=== PATIENT | female | born 1965 | race Caucasian/White ===

== ENCOUNTER 2021-03-22 09:56 | Outpatient (REF) | payer BC, SELFPAY ==
[2021-03-22 11:18] LABS: MANUAL DIFF FLAG NO
[2021-03-22 11:25] LABS: Basophils Absolute Auto 0.1 X10*3/uL (0.0-0.2); Eosinophils Absolute Auto 0.3 X10*3/uL (0.0-0.4); Eosinophils Percent Auto 4.8 % (0-4); Hematocrit 40.7 % (37-47); Hemoglobin 13.1 g/dl (12.0-16.0); Imm Gran Abs Auto 0.01 X10*3/uL (0.00-0.03); Imm Gran Pct Auto 0.2 % (0.0-0.4); Lymphocytes Absolute Auto 1.4 X10*3/uL (1.2-4.9); Lymphocytes Percent Auto 26.2 % (20-40); Mean Corpuscular HGB Conc 32.2 g/dl (31.0-35.0); Mean Corpuscular Hemoglobin 29.5 pg (27.0-33.0); Mean Corpuscular Volume 91.7 fL (80-98); Mean Platelet Volume 9.9 fL (9.4-12.3); Monocytes Absolute Auto 0.7 X10*3/uL (0.1-1.2); Monocytes Percent Auto 12.8 % (2-11); Neutrophils Absolute Auto 2.9 X10*3/uL (2.0-8.3); Platelet Count 305 X10*3/uL (160-400); Red Blood Count 4.44 X10*6/uL (4.20-5.50); Red Cell Distribution Width 12.7 % (11.0-16.0); White Blood Count 5.2 X10*3/uL (4.8-10.8)
[2021-03-22 11:37] LABS: Alanine Aminotransferase 14 U/L (0-31); Albumin Level 4.3 g/dL (3.5-5.0); Alkaline Phosphatase 81 U/L (39-117); Anion Gap 12 (12-20); Aspartate Amino Transferase 18 U/L (5-31); Bilirubin Total 0.5 mg/dL (0.0-1.0); Blood Urea Nitrogen 17 mg/dL (9-16); Calcium 9.4 mg/dL (8.4-10.2); Carbon Dioxide 25 mmol/L (22-29); Chloride 107 mmol/L (96-108); Cholesterol 198 mg/dL; Estimated Glomerular Filt Rate > 60; Glucose Fasting 96 mg/dL (60-99); HDL Cholesterol 57 mg/dL; Iron 94 mcg/dL (30-160); LDL Cholesterol Calculated 128 mg/dl; Percent Iron Saturation 25 % (15-50); Potassium 4.2 mmol/L (3.3-5.1); Sodium 140 mmol/L (135-145); Total Iron Binding Capacity 369 mcg/dL (228-428); Total Protein 6.8 g/dL (6.5-8.0); Triglycerides 68 mg/dL; Unsaturated Iron Binding 275 ug/dL
[2021-03-22 12:00] LABS: TSH reflex Free T4 2.21 uIU/mL (0.32-4.0); Vitamin D 25-OH Total 26.3 ng/mL (>30)
== END 2021-03-22 09:57 | disposition home or self-care (01) ==
LOC: HO.HMGCLDS 09:56
PROVIDERS: PCP Internal Medicine; Visit Provider Internal Medicine
DX: Z00.01 Encounter for general adult medical examination with abnormal findings (principal); Z78.0 Asymptomatic menopausal state; Z86.2 Personal history of diseases of the blood and blood-forming organs and certain disorders involving the immune mechanism
CPT/HCPCS: 36415; 80053; 80061; 82306; 83540; 84443; 85025

== ENCOUNTER → 2021-05-01 08:23 | Outpatient (BNVA) | payer BC, SELFPAY | PROVIDERS: PCP Internal Medicine; Referring Provider Internal Medicine; Visit Provider Nurse Practitioner Family ==

== ENCOUNTER 2021-05-28 09:23 | Outpatient (REF) | payer BC, SELFPAY ==
[2021-05-30 21:32] LABS: HPV mRNA E6/E7 rflx Not Detected (Not Detected)
== END 2021-05-28 09:24 | disposition home or self-care (01) ==
LOC: HO.LAB 09:23
PROVIDERS: PCP Internal Medicine; Visit Provider Obstetrics & Gynecology
DX: Z01.419 Encounter for gynecological examination (general) (routine) without abnormal findings (principal); Z11.51 Encounter for screening for human papillomavirus (HPV); Z91.89 Other specified personal risk factors, not elsewhere classified
CPT/HCPCS: 87624; 88142

== ENCOUNTER 2022-06-24 15:12 | Outpatient (REF) | payer BC, SELFPAY ==
--- NOTE | ~2022-06-24 | MR_ITS ---
EXAMINATION: MR BREAST WITHOUT AND WITH CONTRAST, BILATERAL CLINICAL INFORMATION: High-risk screening. Family history breast cancer. COMPARISON: Outside MRI 03/31/2019 TECHNIQUE: Imaging was performed with a dedicated breast coil. Prior to the administration of contrast, bilateral axial T1 and bilateral axial T2 weighted sequences were obtained. After the uneventful administration of?10 mL of Gadavist, dynamic contrast-enhanced VIBRANT series through the breasts in the axial plane were performed. Subtracted images were performed and reviewed. A delayed sagittal sequence through both breasts was acquired. Additionally, CAD post-processing, including maximum intensity projections, 3-D reconstructions and kinetic analysis, were performed an independent workstation and reviewed by the interpreting radiologist is a portion of this exam. FINDINGS: The patient's fibroglandular tissue demonstrates moderate background enhancement. LEFT BREAST: No suspicious masslike or non-masslike enhancement. No abnormal skin thickening or nipple retraction. No abnormal architectural distortion. Review of the T2 weighted images demonstrates no fibrocystic changes or dilated ducts. Review of kinetic images reveals no additional findings. RIGHT BREAST: No suspicious masslike or non-masslike enhancement. No abnormal skin thickening or nipple retraction. No abnormal architectural distortion. Review of the T2 weighted images demonstrates no fibrocystic changes or dilated ducts. Review of kinetic images reveals no additional findings. There is no suspicious internal mammary chain or axillary adenopathy. Limited views of the chest and abdomen are unremarkable. MR/MR breast BI wo/w con IMPRESSION: No MR specific evidence of malignancy. ASSESSMENT: LEFT BREAST: BI-RADS 1-Negative RIGHT BREAST: BI-RADS 1-Negative RECOMMENDATIONS: Clinical follow-up. Continued annual mammographic surveillance. Further breast MRI as risk factors dictate.
== END 2022-06-24 15:13 | disposition home or self-care (01) ==
LOC: HO.MRI 15:12
PROVIDERS: Visit Provider Obstetrics & Gynecology
DX: Z91.89 Other specified personal risk factors, not elsewhere classified (principal); Z80.3 Family history of malignant neoplasm of breast
CPT/HCPCS: 77049; A9585

== ENCOUNTER 2022-06-25 12:22 | Outpatient (REF) | payer BC, SELFPAY | END 2022-06-25 12:23 | disposition home or self-care (01) | LOC: HO.LAB 12:22 | PROVIDERS: PCP Internal Medicine; Visit Provider Obstetrics & Gynecology | DX: N90.4 Leukoplakia of vulva (principal) | CPT/HCPCS: 56605; 88305; 88312 ==

== ENCOUNTER 2022-12-27 13:11 | Outpatient (REF) | payer BC, SELFPAY ==
--- NOTE | ~2022-12-27 | XR_ITS ---
EXAMINATION: XR ANKLE, LEFT CLINICAL INFORMATION: Pain left ankle and left foot. COMPARISON: None TECHNIQUE: AP, lateral, and mortise views of the left ankle. FINDINGS: There is moderate lateral malleolar soft tissue swelling the ankle mortise and subtalar joints are normal. There is a small calcaneal heel enthesophyte. No visible acute fracture or dislocation seen. XR/XR ankle LT min 3V IMPRESSION: 1. Moderate lateral malleolar soft tissue swelling likely ligamentous injury. No visible acute fracture or dislocation seen. 2. Small calcaneal heel enthesophyte.
== END 2022-12-27 13:12 | disposition home or self-care (01) ==
LOC: HO.HMGCX 13:11
PROVIDERS: Visit Provider Internal Medicine
DX: M25.572 Pain in left ankle and joints of left foot (principal)
CPT/HCPCS: 73610

== ENCOUNTER 2023-05-23 12:26 | Outpatient (AMB) | payer BC, SELFPAY ==
--- NOTE | 2023-05-23 12:32 | A.OFFPC_ITS ---
Vital Signs 05/23/23 12:35 Height 5 ft 3 in Weight 192 lb 8 oz BMI 34.1 BP 124/78 Blood Pressure Location Lt brachial Position Sitting Pulse 69 Pulse Source Pulse Oximeter Pulse Oximetry (%) 99 Oxygen Delivery Method Room Air Intake Visit Reasons: Annual PE Intake Note: Pt is here for her annual physical exam. Allergies adhesive tape [ADHESIVE TAPE] Allergy (Unknown, Verified 10/11/23 23:39) RASH neomycin Allergy (Unknown, Verified 10/11/23 23:39) rash thimerosal Allergy (Unknown, Verified 10/11/23 23:39) itching Iodinated Contrast Media [Contrast Dye] Adverse Reaction (Verified 10/11/23 23:39) Itching Medication List - Last Reconciled 10/11/23 by Macie Valdovinos MD cyclobenzaprine 10 mg PO BEDTIME PRN Tobacco use date assessed: 05/23/23 Dental Screening Dental Screen Date: 05/23/23 Did you have a dental visit in the last 12 months?: Yes Did you have a dental problem in the last 6 months where you did not have access to dental care?: No Was dental information given to patient?: No HPI Annual PE HPI Details 58-year-old lady, presents today for her physical exam. She has COPD, and history of obstructive sleep apnea, prescribed CPAP, but never used it, is currently complaining of excessive daytime sleepiness and loud snoring, would like to be referred for re-evaluation . She is currently being followed by OBGYNDr. Figueroa for her routine Pap and pelvic exam, and has been diagnosed with vulvar leukoplakia. She has strong family history for early breast cancer, underwent genetic testing which came back negative. She is up-to-date with her screening mammogram, done at [facility], with negative results. She had a Cologuard testing done in 2020 which came back negative, due for repeat colon cancer screening in 2023. She has history of depression, previously on fluoxetine, but stopped taking the medication approximately year ago as she feels that she does not needed anymore. She however has been having easy distractibility, unable to keep her concentration focus, and would like to be evaluated for possible ADD. [facility] Medical History (Updated 05/23/23 @ 13:33 by Macie Valdovinos MD) Annual visit for general adult medical examination with abnormal findings Vitamin D deficiency Excessive daytime sleepiness Loud snoring Sleep disturbance Increased risk of breast cancer Broken ribs Obesity History of anemia Depression COPD (chronic obstructive pulmonary disease) BERT (obstructive sleep apnea) Surgical History History of hand surgery Hx of section History of endometrial ablation No pertinent past surgical history Family History Father Lung cancer Mother Lung cancer Sister Melanoma Breast cancer, Onset Age: 52 Maternal Aunt Breast cancer Brain cancer Paternal Grandfather Lung cancer Breast cancer Maternal Uncle Lung cancer Maternal Aunt Breast cancer Maternal Aunt No problems noted. Maternal Uncle Lung cancer Paternal Uncle No problems noted. Paternal Uncle Breast cancer Lung cancer Paternal Grandfather No problems noted. Paternal Grandmother Stomach cancer Paternal Aunt Lymphoma Social History Household Members: Spouse and Children Housing: House Are you a primary live in caregiver to a significant other at home: No Do you presently have visiting nurse or other home services: No Alcohol intake: current Patient Tobacco Use Status: Never used Tobacco e-Cigarette/Vaping Use: Never Used service: No Current occupational status: unemployed Cognitive needs: No Hearing needs: No Vision needs: Yes Female Reproductive History Menstrual Age of Menarche: 9 Questionnaire Thrive Questionnaire Date Thrive assessed: 12/27/22 AUDIT C Alcohol Use Questionnaire (AUDIT-C) 1. How often do you have a drink containing alcohol?: Never 3. How often do you have six or more drinks on one occasion?: Never Total Score: 0 GIN-7 AMB Questionnaire GIN-7 Date GIN - 7 assessed: 12/27/22 Source: Developed by Drs. Hayden Cummings, Michelle Charlton, Alban Danielson and colleagues, with an educational sal from [employer]. Review of Systems Const Denies body aches, Denies fatigue, Denies fever(s), Denies headache(s) and Denies weakness Eyes Denies change in vision ENT Denies dizziness, Denies headache(s), Denies nasal congestion, Denies nasal discharge and Denies sore throat Card Denies chest pain, Denies lightheadedness, Denies palpitations and Denies dyspnea Resp Denies chest congestion, Denies cough, Denies dyspnea and Denies wheezing GI Denies abdominal pain, Denies change in bowel habits and Denies heartburn Denies urinary frequency, Denies dysuria and Denies urinary urgency Musc Denies arthralgias, Reports muscle cramps (Lower back) and Denies stiffness Skin/Breast Details: sees [place] [facility] yearly Denies lesions and Denies rash Neuro Denies dizziness, Denies headache(s) and Denies weakness Psych Reports no additional complaints and Reports as per HPI Endo Denies fatigue, Denies polydipsia, Denies polyuria and Denies palpitations Steffen/Lymph Denies easy bruising Aller/Immun Denies seasonal rhinorrhea and Denies wheezing Physical exam (Primary Care) Vital Signs: Last Vital Signs Pulse 69 05/23/23 12:35 BP 124/78 05/23/23 12:35 Pulse Ox 99 05/23/23 12:35 Oxygen Delivery Method Room Air 05/23/23 12:35 BMI result Body Mass Index 34.1 Tobacco/Smoking Status: Tobacco use Status Tobacco use date assessed 05/23/23 05/23/23 12:38 Patient Tobacco Use Status Never used Tobacco 05/23/23 12:35 e-Cigarette/Vaping Use Never Used 05/23/23 12:38 Thrive Assessment: Date of Thrive Assessment Date Thrive assessed 12/27/22 05/23/23 12:35 Const General: cooperative, no acute distress and alert Orientation/consciousness: patient oriented x3 Skin General skin exam: no rashes or lesions noted Neuro General: patient oriented x3 Assessment and Plan Assessment & Plan (1) Annual visit for general adult medical examination with abnormal findings: Code(s): Z00.01 - Encounter for general adult medical examination with abnormal findings Plan: Will check appropriate labs. Recommended dental visit every 6 months and regular eye exams, at least every 2 years. Take adequate calcium in diet and vitamin-D 3 at 2000 IU per cap once a day, in addition to weight-bearing exercises to help maintain good muscle tone and weight control. Instructed to do self-breast exam, and continue yearly mammogram, and cervical cancer screening, up-to-date with her colon cancer screening had a Cologuard testing done in 2020 reminded to get her yearly flu vaccine and pneumonia vaccination. (2) BERT (obstructive sleep apnea): Comment: previously on CPAP Code(s): G47.33 - Obstructive sleep apnea (adult) (pediatric) Plan: Referred for re-evaluation to sleep medicine (3) Excessive daytime sleepiness: Code(s): G47.19 - Other hypersomnia Plan: Referral to sleep medicine for further evaluation (4) Loud snoring: Code(s): R06.83 - Snoring Plan: Referred to sleep medicine for further evaluation (5) Sleep disturbance: Code(s): G47.9 - Sleep disorder, unspecified Plan: Referred to sleep medicine for re-evaluation, has history of sleep apnea, but never used prescribed CPAP (6) Vulvar leukoplakia: Code(s): N90.4 - Leukoplakia of vulva Plan: Followed by OBGYN (7) Obesity: Code(s): E66.9 - Obesity, unspecified Plan: Discussed need to increase activity and weight reduction. Recommended focusing on improving health instead of dieting. Mediterranean diet is a healthy diet that helps, limit food high in fat, sugar, and calories. Eat slowly, pay attention to portion sizes, plan your meals ahead of time, start regular physical activity, at least 150 minutes of moderate intensity exercise, or 90 minutes per week of vigorous exercise. Keeping a food diary, tracking what you eat and your physical activity can help assess what improvements you can make. There are many health problems associated with being overweight/obese, so it is important to improve your diet and exercise. There are medications and surgical options available, but Lifestyle changes are the 1st step. (8) COPD (chronic obstructive pulmonary disease): Code(s): J44.9 - Chronic obstructive pulmonary disease, unspecified Plan: Currently asymptomatic, not using any inhalers,. Up-to-date with her COVID booster, reminded to get her flu shot yearly, up-to-date with her shingles vaccine and reminded to get her pneumonia vaccination. (9) Difficulty concentrating: Code(s): R41.840 - Attention and concentration deficit Plan: Referred to our [facility] for assistance with referral to psychologist for evaluation of attention deficit disorder (10) Lumbago: Code(s): M54.50 - Low back pain, unspecified Plan: Advised to do stretching exercises, prescribed cyclobenzaprine 10 mg per tablet to take 1 tablet at bedtime as needed for painful muscle spasm Orders: Orders Vitamin D 25-OH Total 05/23/23 E55.9 - Vitamin D deficiency, unspecified, Z00.01 - Encounter for general adult medical examination with abnormal findings Lipid Panel 05/23/23 G47.9 - Sleep disorder, unspecified, R06.83 - Snoring, G47.19 - Other hypersomnia Glucose Fasting 05/23/23 G47.9 - Sleep disorder, unspecified, R06.83 - Snoring, G47.19 - Other hypersomnia Referrals Sleep Medicine Referral G47.33 - Obstructive sleep apnea (adult) (pediatric), G47.19 - Other hypersomnia, R06.83 - Snoring, G47.9 - Sleep disorder, unspecified Medications: New cyclobenzaprine 10 mg PO BEDTIME PRN 20 tabs 0RF muscle spasm Coding Level of Care Code Est Pt Prev Care 40-64y(35922) Diagnoses Annual visit for general adult medical examination with abnormal findings Z00.01 BERT (obstructive sleep apnea) G47.33 Excessive daytime sleepiness G47.19 Loud snoring R06.83 Sleep disturbance G47.9 Vulvar leukoplakia N90.4 Obesity E66.9 COPD (chronic obstructive pulmonary disease) J44.9 Difficulty concentrating R41.840 Lumbago M54.50
[2023-05-23 12:35] VITALS: BP 124/78; PULSE 69; O2SAT 99; BMI 34.1
== END 2023-05-23 14:01 | disposition home or self-care (01) ==
PROVIDERS: Visit Provider Internal Medicine
DX: Z00.01 Encounter for general adult medical examination with abnormal findings (principal); M54.50 Low back pain, unspecified; G47.33 Obstructive sleep apnea (adult) (pediatric); J44.9 Chronic obstructive pulmonary disease, unspecified; G47.19 Other hypersomnia; R06.83 Snoring; G47.9 Sleep disorder, unspecified; N90.4 Leukoplakia of vulva; E66.9 Obesity, unspecified; R41.840 Attention and concentration deficit
CPT/HCPCS: 99213; 99396

== ENCOUNTER 2023-11-03 10:32 | Outpatient (AMB) | payer BC, SELFPAY ==
--- NOTE | 2023-11-03 10:40 | MHC.PC.OV ---
Vital Signs 11/03/23 10:42 Height 5 ft 3 in Weight 189 lb BMI 33.5 BP 132/76 Blood Pressure Location Rt brachial Position Sitting Pulse 86 Pulse Source Pulse Oximeter Pulse Oximetry (%) 97 Oxygen Delivery Method Room Air Intake Visit Reasons: Followup depression Intake Note: Pt is here to follow Depression Allergies adhesive tape [ADHESIVE TAPE] Allergy (Unknown, Verified 11/03/23 10:50) RASH neomycin Allergy (Unknown, Verified 11/03/23 10:50) rash thimerosal Allergy (Unknown, Verified 11/03/23 10:50) itching Iodinated Contrast Media [Contrast Dye] Adverse Reaction (Verified 11/03/23 10:50) Itching Medication List - Last Reconciled 11/03/23 by Macie Valdovinos MD No Known Home Meds Tobacco use date assessed: 11/03/23 Dental Screening Dental Screen Date: 11/03/23 Did you have a dental visit in the last 12 months?: Yes Did you have a dental problem in the last 6 months where you did not have access to dental care?: No Was dental information given to patient?: Patient has dentist HPI Followup depression HPI Details 48-year-old lady with longstanding history of depression, previously on fluoxetine 30 mg daily, but stopped taking it approximately a year ago as she felt that she no longer needed that time. However patient is here stating that she has been under lot of stress lately, started seeing her therapist again, and would like to be prescribed fluoxetine, but prefers to start at 20 mg instead of 30 mg tablet daily. [facility] Medical History (Updated 11/04/23 @ 02:04 by Macie Valdovinos MD) Mixed anxiety and depressive disorder Annual visit for general adult medical examination with abnormal findings Vitamin D deficiency Increased risk of breast cancer Obesity History of anemia Depression COPD (chronic obstructive pulmonary disease) BERT (obstructive sleep apnea) Surgical History History of hand surgery Hx of section History of endometrial ablation No pertinent past surgical history Family History Father Lung cancer Mother Lung cancer Sister Melanoma Breast cancer, Onset Age: 52 Maternal Aunt Breast cancer Brain cancer Paternal Grandfather Lung cancer Breast cancer Maternal Uncle Lung cancer Maternal Aunt Breast cancer Maternal Aunt No problems noted. Maternal Uncle Lung cancer Paternal Uncle No problems noted. Paternal Uncle Breast cancer Lung cancer Paternal Grandfather No problems noted. Paternal Grandmother Stomach cancer Paternal Aunt Lymphoma Social History Household Members: Spouse and Children Housing: House Are you a primary career center advisor to a significant other at home: No Do you presently have visiting nurse or other home services: No Alcohol intake: current Patient Tobacco Use Status: Never used Tobacco e-Cigarette/Vaping Use: Never Used Second Hand Smoke Exposure: No service: No Current occupational status: unemployed Cognitive needs: No Hearing needs: No Vision needs: Yes Female Reproductive History Menstrual Age of Menarche: 9 Questionnaire PHQ-9 Over the last 2 weeks, how often have you been bothered by any of the following problems? 1. Little interest or pleasure in doing things: more than half the days 2. Feeling down, depressed, or hopeless: nearly every day 3. Trouble falling or staying asleep, or sleeping too much: nearly every day 4. Feeling tired or having little energy: nearly every day 5. Poor appetite or overeating: more than half the days 6. Feeling bad about yourself - or that you are a failure or have let yourself or your family down: more than half the days 7. Trouble concentrating on things, such as reading the newspaper or watching television: more than half the days 8. Moving or speaking so slowly that other people could have noticed. Or the opposite - being so fidgety or restless that you have been moving around a lot more than usual: several days 9. Thoughts that you would be better off or of hurting yourself in some way: not at all Total score: 18 Depression Screening Interpretation: Positive Depression Screening Follow-up: Existing condition, In treatment, Community Mental Health Worker F/U (Referred to Antonia clark with scheduling appointment with psychiatry, currently sees own therapist) and Follow-up Visit Requested Depression Screening Done: Yes 24119 - PHQ-9 Billing: Yes Source: Developed by Drs. Hayden Cummings, Michelle Charlton, Alban Danielson and colleagues, with an educational sal from [employer]. Thrive Questionnaire Date Thrive assessed: 11/03/23 I am a: Patient What is your living situation today?: I have a steady place to live Within the past 12 months, did the food you bought not last and you didn't have the money to get more?: Never true Within the past 12 months, did you worry whether your food would run out before you got money to buy more?: Sometimes True Do you have trouble paying for medicines?: No Do you have trouble getting transportation to medical appointments?: No Do you have trouble paying your heating and electricity bill?: No Do you have trouble taking care of your child, family member or friend?: No Do you have trouble with day-to-day activities such as bathing, preparing meals, shopping, managing finances, etc.?: Yes Are you currently unemployed and looking for a job?: Yes Are you interested in more education?: No AUDIT C Alcohol Use Questionnaire (AUDIT-C) 1. How often do you have a drink containing alcohol?: Monthly or less 2. How many drinks containing alcohol do you have on a typical day when you are drinking?: 1 or 2 3. How often do you have six or more drinks on one occasion?: Never Total Score: 1 GIN-7 AMB Questionnaire GIN-7 Date GIN - 7 assessed: 11/03/23 Feeling nervous, anxious, or on edge: 3 = Nearly every day Not being able to stop or control worryin = Nearly every day Worrying too much about different things: 3 = Nearly every day Trouble relaxin = More than half the days Being so restless that it is hard to sit still: 2 = More than half the days Becoming easily annoyed or irritable: 2 = More than half the days Feeling afraid as if something awful might happen: 2 = More than half the days Total GIN-7 score (0-4 normal; 5-9 mild; 10-14 moderate; 15-21 severe): 17 Source: Developed by Drs. Hayden Cummings, Michelle Charlton, Alban Danielson and colleagues, with an educational sal from [employer]. GIN-7 Assessment Billing GIN-7 Assessment Tool: GIN-7 Assessment 60987 Review of Systems Const All systems reviewed & are unremarkable except as noted in HPI and below Physical exam (Primary Care) Vital Signs: Last Vital Signs Pulse 86 11/03/23 10:42 BP 132/76 11/03/23 10:42 Pulse Ox 97 11/03/23 10:42 Oxygen Delivery Method Room Air 11/03/23 10:42 BMI result Body Mass Index 33.5 Tobacco/Smoking Status: Tobacco use Status Tobacco use date assessed 11/03/23 11/03/23 10:50 Patient Tobacco Use Status Never used Tobacco 11/03/23 10:43 e-Cigarette/Vaping Use Never Used 11/03/23 10:43 PHQ-9: PHQ-9 Score PHQ-9: Total score 18 11/03/23 11:10 Depression Screening Interpretation: Positive Depression Screening Follow-up: Existing condition, In treatment, Community Mental Health Worker F/U (Referred to Antonia clark with scheduling appointment with psychiatry, currently sees own therapist) and Follow-up Visit Requested Thrive Assessment: Date of Thrive Assessment Date Thrive assessed 11/03/23 11/03/23 11:10 Const Other: Alert oriented x3, anxious looking, but cooperative with exam Nutritional Appearance: obese Orientation/consciousness: patient oriented x3 Eyes General: appearance normal, both eyes and all related structures Neck Neck: Yes full ROM and Yes supple Cardio Other: S1-S2 present regular rate and rhythm Neuro General: patient oriented x3 Psych Appearance: grossly normal and well kempt Mental Status: mental status grossly normal Speech and movement: Psychomotor agitation in speech present and Restless speech present Affect: Sad affect present and Anxious affect present Attitude: cooperative Thought process: Normal thought process present Thought content: suicidality, no homicidality and no hallucinations Assessment and Plan Assessment & Plan (1) Mixed anxiety and depressive disorder: Code(s): F41.8 - Other specified anxiety disorders Plan: Will start back again on fluoxetine at a dose of 20 mg per tablet to take once a day, patient wants to continue with seeing her therapist, referred to Antonia SAENZ [facility], for assistance in getting in to be seen for psychiatric evaluation and management. Advised to follow-up. Four weeks if not yet seen by psych Medications: New fluoxetine 20 mg PO DAILY 30 caps 0RF Coding Level of Care Code Est Pt Level 3 (44625) Diagnoses Mixed anxiety and depressive disorder F41.8 Additional Codes GIN-7 Assessment Billing - GIN-7 Assessment Tool: GIN-7 Assessment [id number] ([id number])
[2023-11-03 10:42] VITALS: BP 132/76; PULSE 86; O2SAT 97; BMI 33.5
== END 2023-11-03 11:23 | disposition home or self-care (01) ==
LOC: HO.HMGC 10:32
PROVIDERS: PCP Internal Medicine; Visit Provider Internal Medicine
DX: F41.8 Other specified anxiety disorders (principal)
CPT/HCPCS: 96127; 99213

== ENCOUNTER 2023-11-19 08:19 | Outpatient (AMB) | payer BC, SELFPAY ==
[2023-11-19 08:35] VITALS: BP 170/100; PULSE 73; TEMP 36.6; O2SAT 98; BMI 33.5
--- NOTE | 2023-11-19 08:35 | MHC.OFFWIV ---
Intake Vital Signs 11/19/23 08:35 11/19/23 09:06 Height 5 ft 3 in Weight 189 lb BMI 33.5 BP 170/100 H 164/98 H Blood Pressure Location Lt brachial Rt brachial Position Sitting Sitting Pulse 73 Pulse Source Pulse Oximeter Temp 97.8 F Temp Source Oral Pulse Oximetry (%) 98 Oxygen Delivery Method Room Air Intake Visit Reasons: EP bronchitis 2 wks [id number] Intake Note: pt is here for c.o ear and eye pain and possible bronchitis, pt states shes had these symptoms for 2 weeks Patient Tobacco Use Status: Never used Tobacco Allergies adhesive tape [ADHESIVE TAPE] Allergy (Unknown, Verified 11/19/23 09:04) RASH neomycin Allergy (Unknown, Verified 11/19/23 09:04) rash thimerosal Allergy (Unknown, Verified 11/19/23 09:04) itching Iodinated Contrast Media [Contrast Dye] Adverse Reaction (Verified 11/19/23 09:04) Itching Medication List - Last Reconciled 11/19/23 by DANGELO Loaiza fluoxetine 20 mg PO DAILY Do you need a note to return to daycare/school/sports/work: Yes HPI HPI Comments History of Present Illness Details Here today w/ a cough for 2 weeks assoc w/ ear pain, eye pain. Thick white sputum from cough. + sore throat + sick contacts Using cough gtts & OTC meds to help w/ sx. Elevated BP on exam today. Reports this is unusual for her. Denies cardiac and neuro complaints. COUNTS INCLUDE 234 BEDS AT [facility] Medical History (Updated 11/19/23 @ 09:22 by DANGELO Loaiza) Mixed anxiety and depressive disorder Annual visit for general adult medical examination with abnormal findings Vitamin D deficiency Increased risk of breast cancer Obesity History of anemia Depression COPD (chronic obstructive pulmonary disease) BERT (obstructive sleep apnea) Surgical History History of hand surgery Hx of section History of endometrial ablation No pertinent past surgical history Family History Father Lung cancer Mother Lung cancer Sister Melanoma Breast cancer, Onset Age: 52 Maternal Aunt Breast cancer Brain cancer Paternal Grandfather Lung cancer Breast cancer Maternal Uncle Lung cancer Maternal Aunt Breast cancer Maternal Aunt No problems noted. Maternal Uncle Lung cancer Paternal Uncle No problems noted. Paternal Uncle Breast cancer Lung cancer Paternal Grandfather No problems noted. Paternal Grandmother Stomach cancer Paternal Aunt Lymphoma Social History Household Members: Spouse and Children Housing: House Are you a primary critical care specialist to a significant other at home: No Do you presently have visiting nurse or other home services: No Alcohol intake: current Patient Tobacco Use Status: Never used Tobacco e-Cigarette/Vaping Use: Never Used Second Hand Smoke Exposure: No service: No Current occupational status: unemployed Cognitive needs: No Hearing needs: No Vision needs: Yes Female Reproductive History Menstrual Age of Menarche: 9 Review of Systems Const All systems reviewed & are unremarkable except as noted in HPI and below Physical Exam Vital Signs: Last Vital Signs Temp 97.8 F 11/19/23 08:35 Pulse 73 11/19/23 08:35 BP 164/98 H 11/19/23 09:06 Pulse Ox 98 11/19/23 08:35 Oxygen Delivery Method Room Air 11/19/23 08:35 BMI result Body Mass Index 33.5 Const Other: awake alert mildly ill appearing PERRLA TM intact, mild erythema bilat purulent nasal drainage mild erythema of pharynx, pnd ins/exp wheezes throughout, dry cough RRR Assessment & Plan Assessment & Plan (1) Flu-like symptoms: Code(s): R68.89 - Other general symptoms and signs Plan: . (2) Wheezing on auscultation: Code(s): R06.2 - Wheezing Plan: . (3) Elevated blood pressure reading: Code(s): R03.0 - Elevated blood-pressure reading, without diagnosis of hypertension Plan use otc medicactions safe for high blood pressure monitor BP QD and f/u in 1 week to review results edu on reasons to seek ED level care in regards to bp will be called if viral swab or cxr + take AB as directed Total time spent caring for the patient today was 35 minutes. This includes time spent before the visit reviewing the chart, time spent during the visit, and time spent after the visit on documentation Orders: Orders XR chest 2V Today R06.2 - Wheezing, R68.89 - Other general symptoms and signs SARS-CoV2/FLU/RSV Today R06.2 - Wheezing, R68.89 - Other general symptoms and signs Medications: New amoxicillin-pot clavulanate 875-125 mg 1 tab PO BID 7 days 14 tabs 0RF benzonatate 100 mg PO TID 10 days PRN 30 caps 1RF cough Coding Level of Care Code Est Pt Level 4 (34918) Diagnoses Flu-like symptoms R68.89 Wheezing on auscultation R06.2 Elevated blood pressure reading R03.0
[2023-11-19 09:06] VITALS: BP 164/98
== END 2023-11-19 09:36 | disposition home or self-care (01) ==
PROVIDERS: PCP Internal Medicine; Visit Provider Nurse Practitioner Family
DX: R68.89 Other general symptoms and signs (principal); R06.2 Wheezing; R03.0 Elevated blood-pressure reading, without diagnosis of hypertension
CPT/HCPCS: 99214

== ENCOUNTER 2023-11-19 09:20 | Outpatient (REF) | payer BC, SELFPAY ==
--- NOTE | ~2023-11-19 | XR_ITS ---
EXAMINATION: XR CHEST CLINICAL INFORMATION: Wheezing. Difficulty breathing. COMPARISON: None available. TECHNIQUE: 2 views of the chest were obtained. FINDINGS: Lungs fully expanded and clear. No pleural effusion. No pneumothorax. Heart and pulmonary vessels normal. XR/XR chest 2V IMPRESSION: No active disease.
[2023-11-19 12:28] LABS: Influenza A PCR NEGATIVE (Negative); Influenza B PCR NEGATIVE (Negative); Resp Syncy Virus RNA Qual PCR NEGATIVE (Negative); SARS COV2 PCR INHOUSE NEGATIVE (Negative)
== END 2023-11-19 09:21 | disposition home or self-care (01) ==
LOC: HO.HMGCX 09:20
PROVIDERS: PCP Internal Medicine; Visit Provider Nurse Practitioner Family
DX: Z11.52 Encounter for screening for COVID-19 (principal); R06.2 Wheezing; R68.89 Other general symptoms and signs
CPT/HCPCS: 0241U; 71046

== ENCOUNTER 2023-12-05 11:18 | Outpatient (AMB) | payer BC, SELFPAY ==
[2023-12-05 11:23] VITALS: BP 142/82; PULSE 67; O2SAT 96; BMI 32.4
--- NOTE | 2023-12-05 11:23 | A.OFFPC_ITS ---
Vital Signs 12/05/23 11:23 Height 5 ft 3 in Weight 183 lb BMI 32.4 BP 142/82 H Blood Pressure Location Rt brachial Position Sitting Pulse 67 Pulse Source Pulse Oximeter Pulse Oximetry (%) 96 Oxygen Delivery Method Room Air Intake Visit Reasons: F/U depression Intake Note: Pt is here today to f/u depression Allergies adhesive tape [ADHESIVE TAPE] Allergy (Unknown, Verified 12/05/23 11:45) RASH neomycin Allergy (Unknown, Verified 12/05/23 11:45) rash thimerosal Allergy (Unknown, Verified 12/05/23 11:45) itching Iodinated Contrast Media [Contrast Dye] Adverse Reaction (Verified 12/05/23 11:45) Itching Medication List - Last Reconciled 12/05/23 by Macie Valdovinos MD fluoxetine 20 mg PO DAILY Tobacco use date assessed: 12/05/23 Dental Screening Dental Screen Date: 12/05/23 Did you have a dental visit in the last 12 months?: Yes Did you have a dental problem in the last 6 months where you did not have access to dental care?: No Was dental information given to patient?: Patient has dentist HPI F/U depression HPI Details 58-year-old lady with mixed anxiety depr ession currently on fluoxetine 20 mg once a day, here today for her follow-up. She has been seeing her therapist, and has an appointment to see [facility] psychiatrist on 12/16/2023.. Feels better on fluoxetine 20 mg, but still having episodes of mood swings and anxiety attacks, would like to see if she can increase dose to 30 mg daily. Blood pressure today is elevated, she has also been checking it at home and it has been running from between 130/80 to 150/70. Denies any accompanying headache, no shortness of breath, no chest pain or lightheadedness reported. She has changed her diet, now follows a Mediterranean diet but has not been exercising regularly. [facility] Medical History (Updated 12/05/23 @ 11:55 by Macie Valdovinos MD) Essential hypertension Mixed anxiety and depressive disorder Annual visit for general adult medical examination with abnormal findings Vitamin D deficiency Increased risk of breast cancer Obesity History of anemia Depression COPD (chronic obstructive pulmonary disease) BERT (obstructive sleep apnea) Surgical History History of hand surgery Hx of section History of endometrial ablation No pertinent past surgical history Family History Father Lung cancer Mother Lung cancer Sister Melanoma Breast cancer, Onset Age: 52 Maternal Aunt Breast cancer Brain cancer Paternal Grandfather Lung cancer Breast cancer Maternal Uncle Lung cancer Maternal Aunt Breast cancer Maternal Uncle Lung cancer Paternal Uncle Breast cancer Lung cancer Paternal Grandmother Stomach cancer Paternal Aunt Lymphoma Social History Household Members: Spouse and Children Housing: House Are you a primary health care attorney to a significant other at home: No Do you presently have visiting nurse or other home services: No Alcohol intake: current Patient Tobacco Use Status: Never used Tobacco e-Cigarette/Vaping Use: Never Used Second Hand Smoke Exposure: No service: No Current occupational status: unemployed Cognitive needs: No Hearing needs: No Vision needs: Yes Female Reproductive History Menstrual Age of Menarche: 9 Questionnaire PHQ-9 Over the last 2 weeks, how often have you been bothered by any of the following problems? 1. Little interest or pleasure in doing things: several days 2. Feeling down, depressed, or hopeless: several days 3. Trouble falling or staying asleep, or sleeping too much: not at all 4. Feeling tired or having little energy: nearly every day 5. Poor appetite or overeating: more than half the days 6. Feeling bad about yourself - or that you are a failure or have let yourself or your family down: several days 7. Trouble concentrating on things, such as reading the newspaper or watching television: several days 8. Moving or speaking so slowly that other people could have noticed. Or the opposite - being so fidgety or restless that you have been moving around a lot more than usual: several days 9. Thoughts that you would be better off or of hurting yourself in some way: not at all Total score: 10 Depression Screening Interpretation: Positive Depression Screening Follow-up: Existing condition, In treatment, Change in Medication and Community Mental Health Worker F/U (Has appointment with [facility] in counseling on 12/16/2023 to see Psychiatry) Depression Screening Done: Yes Source: Developed by Drs. Hyaden Cummings, Michelle Charlton, Alban Danielson and colleagues, with an educational sal from [employer]. Thrive Questionnaire Date Thrive assessed: 11/03/23 GIN-7 AMB Questionnaire GIN-7 Date GIN - 7 assessed: 12/05/23 Feeling nervous, anxious, or on edge: 1 = Several days Not being able to stop or control worryin = Several days Worrying too much about different things: 1 = Several days Trouble relaxin = Several days Being so restless that it is hard to sit still: 0 = Not at all Becoming easily annoyed or irritable: 0 = Not at all Feeling afraid as if something awful might happen: 0 = Not at all Total GIN-7 score (0-4 normal; 5-9 mild; 10-14 moderate; 15-21 severe): 4 Source: Developed by Drs. Hayden Cummings, Michelle Charlton, Alban Danielson and colleagues, with an educational sal from [employer]. Review of Systems Const Denies fever(s), Denies headache(s) and Denies weakness ENT Denies dizziness, Denies headache(s), Denies nasal congestion and Denies nasal discharge Card Denies chest pain, Denies lightheadedness, Denies palpitations and Denies dyspnea Resp Denies chest congestion, Denies cough, Denies dyspnea and Denies wheezing GI Denies abdominal pain and Denies change in bowel habits Denies urinary frequency and Denies dysuria Musc Denies arthralgias and Denies stiffness Skin/Breast Details: sees [facility] yearly Denies lesions and Denies rash Neuro Denies dizziness, Denies headache(s) and Denies weakness Endo Denies polydipsia, Denies polyuria and Denies palpitations Steffen/Lymph Denies easy bruising Aller/Immun Denies seasonal rhinorrhea and Denies wheezing Physical exam (Primary Care) Vital Signs: Last Vital Signs Pulse 67 12/05/23 11:23 BP 142/82 H 12/05/23 11:23 Pulse Ox 96 12/05/23 11:23 Oxygen Delivery Method Room Air 12/05/23 11:23 BMI result Body Mass Index 32.4 Tobacco/Smoking Status: Tobacco use Status Tobacco use date assessed 12/05/23 12/05/23 11:38 Patient Tobacco Use Status Never used Tobacco 12/05/23 11:25 e-Cigarette/Vaping Use Never Used 12/05/23 11:25 PHQ-9: PHQ-9 Score PHQ-9: Total score 10 12/05/23 11:40 Depression Screening Interpretation: Positive Depression Screening Follow-up: Existing condition, In treatment, Change in Medication and Community Mental Health Worker F/U (Has appointment with [facility] in counseling on 12/16/2023 to see Psychiatry) Thrive Assessment: Date of Thrive Assessment Date Thrive assessed 11/03/23 12/05/23 11:25 Const Other: Alert oriented x3, anxious looking, but cooperative with exam Nutritional Appearance: obese Orientation/consciousness: patient oriented x3 Eyes General: appearance normal, both eyes and all related structures Neck Neck: Yes full ROM and Yes supple Resp Auscultation: clear to auscultation bilaterally Cardio Other: S1-S2 present regular rate and rhythm Neuro General: patient oriented x3 Extrem General: Yes full ROM, Yes no joint enlargement, Yes no clubbing, cyanosis or edema, Yes no calf tenderness and Yes normal gait Psych Appearance: grossly normal and well kempt Mental Status: mental status grossly normal Speech and movement: Psychomotor agitation in speech present and Restless speech present Affect: Anxious affect present Attitude: cooperative Thought process: Normal thought process present Thought content: suicidality, no homicidality and no hallucinations Assessment and Plan Assessment & Plan (1) Mixed anxiety and depressive disorder: Code(s): F41.8 - Other specified anxiety disorders Plan: Increased fluoxetine to 30 mg daily, has an appointment already to see a Psychiatry in [facility] in counseling on 12/16/2023, and still sees her therapist on a regular basis. (2) Essential hypertension: Code(s): I10 - Essential (primary) hypertension Plan: Started on lisinopril 5 mg per tablet to take 1 tablet once a day in the morning, reinforced importance of following a low-salt diet, currently now following a Mediterranean diet, encouraged to exercise regularly at least 30 minutes daily, see her back for follow-up in 1 month after fasting labs done (3) Vitamin D deficiency: Code(s): E55.9 - Vitamin D deficiency, unspecified Plan: Start taking [id number] vitamin D3 2000 units daily, will check with vitamin-D level in 1 month (4) History of anemia: Code(s): Z86.2 - Personal history of diseases of the blood and blood-forming organs and certain disorders involving the immune mechanism Plan: Ordered CBC ordered Orders: Orders Basic Metabolic Panel Fasting Today E55.9 - Vitamin D deficiency, unspecified, I10 - Essential (primary) hypertension, Z86.2 - Personal history of diseases of the blood and blood-forming organs and certain disorders involving the immune mechanism Alanine Aminotransferase Today E55.9 - Vitamin D deficiency, unspecified, I10 - Essential (primary) hypertension, Z86.2 - Personal history of diseases of the blood and blood-forming organs and certain disorders involving the immune mechanism Lipid Panel Today E55.9 - Vitamin D deficiency, unspecified, I10 - Essential (primary) hypertension, Z86.2 - Personal history of diseases of the blood and blood-forming organs and certain disorders involving the immune mechanism Aspartate Amino Transferase Today E55.9 - Vitamin D deficiency, unspecified, I10 - Essential (primary) hypertension, Z86.2 - Personal history of diseases of the blood and blood-forming organs and certain disorders involving the immune mechanism Vitamin D 25-OH Total Today E55.9 - Vitamin D deficiency, unspecified, I10 - Essential (primary) hypertension, Z86.2 - Personal history of diseases of the blood and blood-forming organs and certain disorders involving the immune mechanism Complete Blood Count Auto Diff Today E55.9 - Vitamin D deficiency, unspecified, I10 - Essential (primary) hypertension, Z86.2 - Personal history of diseases of the blood and blood-forming organs and certain disorders involving the immune mechanism Medications: New fluoxetine 10 mg PO DAILY 30 caps 0RF lisinopril 5 mg PO DAILY 30 tabs 1RF Refilled fluoxetine 20 mg PO DAILY 30 caps 0RF Coding Level of Care Code Est Pt Level 3 (52619) Diagnoses Mixed anxiety and depressive disorder F41.8 Essential hypertension I10 Vitamin D deficiency E55.9 History of anemia Z86.2
== END 2023-12-05 12:35 | disposition home or self-care (01) ==
PROVIDERS: PCP Internal Medicine; Visit Provider Internal Medicine
DX: F41.8 Other specified anxiety disorders (principal); I10 Essential (primary) hypertension; E55.9 Vitamin D deficiency, unspecified; Z86.2 Personal history of diseases of the blood and blood-forming organs and certain disorders involving the immune mechanism
CPT/HCPCS: 99213

== ENCOUNTER 2023-12-26 09:25 | Outpatient (REF) | payer BC, SELFPAY ==
[2023-12-26 11:19] LABS: MANUAL DIFF FLAG NO
[2023-12-26 11:32] LABS: Basophils Absolute Auto 0.1 X10*3/uL (0.0-0.2); Basophils Percent Auto 1.1 % (0-2); Eosinophils Absolute Auto 0.2 X10*3/uL (0.0-0.4); Eosinophils Percent Auto 5.2 % (0-4); Hematocrit 40.4 % (37.0-47.0); Hemoglobin 13.3 g/dl (12.0-16.0); Imm Gran Abs Auto 0.01 X10*3/uL (0.00-0.03); Imm Gran Pct Auto 0.2 % (0.0-0.4); Lymphocytes Absolute Auto 1.3 X10*3/uL (1.2-4.9); Mean Corpuscular HGB Conc 32.9 g/dl (31.0-35.0); Mean Corpuscular Volume 91.2 fL (80.0-98.0); Mean Platelet Volume 10.1 fL (9.4-12.3); Monocytes Absolute Auto 0.5 X10*3/uL (0.1-1.2); Monocytes Percent Auto 11.6 % (2-11); Neutrophils Absolute Auto 2.5 x10*3/uL (2.0-8.3); Neutrophils Percent Auto 53.9 % (45-73); Platelet Count 290 X10*3/uL (160-400); Red Blood Count 4.43 X10*6/uL (4.20-5.50); Red Cell Distribution Width 12.7 % (11.0-16.0); White Blood Count 4.6 X10*3/uL (4.8-10.8)
[2023-12-26 11:54] LABS: Alanine Aminotransferase 13 U/L (0-31); Anion Gap 12 (12-20); Aspartate Amino Transferase 19 U/L (5-31); Blood Urea Nitrogen 15 mg/dL (9-16); Calcium 10.3 mg/dL (8.4-10.2); Carbon Dioxide 26 mmol/L (22-29); Chloride 106 mmol/L (96-108); Cholesterol 206 mg/dL (<200); Estimated Glomerular Filt Rate > 60; Glucose Fasting 86 mg/dL (60-99); HDL Cholesterol 57 mg/dL (>40); LDL Cholesterol Calculated 138 mg/dL (<100); Potassium 3.9 mmol/L (3.3-5.1); Sodium 140 mmol/L (135-145); Triglycerides 57 mg/dL (<150)
[2023-12-26 12:10] LABS: Vitamin D 25-OH Total 60.4 ng/mL (>30)
== END 2023-12-26 09:26 | disposition home or self-care (01) ==
LOC: HO.HMGCLDS 09:25
PROVIDERS: PCP Internal Medicine; Visit Provider Internal Medicine
DX: E55.9 Vitamin D deficiency, unspecified (principal); I10 Essential (primary) hypertension; Z86.2 Personal history of diseases of the blood and blood-forming organs and certain disorders involving the immune mechanism
CPT/HCPCS: 36415; 80048; 80061; 82306; 84450; 84460; 85025

== ENCOUNTER 2024-01-05 10:22 | Outpatient (AMB) | payer BC, SELFPAY ==
--- NOTE | 2024-01-05 11:11 | A.OFFPC_ITS ---
Vital Signs 01/05/24 11:18 Height 5 ft 3 in Weight 179 lb BMI 31.7 BP 130/80 Blood Pressure Location Rt brachial Position Sitting Pulse 60 Pulse Source Pulse Oximeter Pulse Oximetry (%) 95 Oxygen Delivery Method Room Air Intake Visit Reasons: 1 month follow up Intake Note: Pt is here today for her 1 mo. f/u Allergies adhesive tape [ADHESIVE TAPE] Allergy (Unknown, Verified 01/05/24 11:51) RASH neomycin Allergy (Unknown, Verified 01/05/24 11:51) rash thimerosal Allergy (Unknown, Verified 01/05/24 11:51) itching Iodinated Contrast Media [Contrast Dye] Adverse Reaction (Verified 01/05/24 11:51) Itching Medication List - Last Reconciled 01/05/24 by Macie Valdovinos MD fluoxetine 20 mg PO DAILY fluoxetine 10 mg PO DAILY lisinopril 5 mg PO DAILY Tobacco use date assessed: 01/05/24 Dental Screening Dental Screen Date: 01/05/24 Did you have a dental visit in the last 12 months?: Yes Did you have a dental problem in the last 6 months where you did not have access to dental care?: Yes Was dental information given to patient?: Patient has dentist HPI 1 month follow up HPI Details 4-year-old lady with hypertension, curre ntly on lisinopril 5 mg daily which he takes at night, and has mixed anxiety depression, doing well on fluoxetine 30 mg daily which he takes at bedtime as well, here today for follow- up she has been checking her blood pressure at home and it has been running on average at around 01:20 over 80 with an occasional high of 140/90. Denies any chest pain, headache, no lightheadedness or shortness of breath. Anxiety depression stable controlled on present treatment. [facility] Medical History Hyperlipidemia Essential hypertension Mixed anxiety and depressive disorder Annual visit for general adult medical examination with abnormal findings Vitamin D deficiency Increased risk of breast cancer Obesity History of anemia Depression COPD (chronic obstructive pulmonary disease) BERT (obstructive sleep apnea) Surgical History History of hand surgery Hx of section History of endometrial ablation No pertinent past surgical history Family History Father Lung cancer Mother Lung cancer Sister Melanoma Breast cancer, Onset Age: 52 Maternal Aunt Breast cancer Brain cancer Paternal Grandfather Lung cancer Breast cancer Maternal Uncle Lung cancer Maternal Aunt Breast cancer Maternal Uncle Lung cancer Paternal Uncle Breast cancer Lung cancer Paternal Grandmother Stomach cancer Paternal Aunt Lymphoma Social History Household Members: Spouse and Children Housing: House Are you a primary transitional care manager to a significant other at home: No Do you presently have visiting nurse or other home services: No Alcohol intake: current Patient Tobacco Use Status: Never used Tobacco e-Cigarette/Vaping Use: Never Used Second Hand Smoke Exposure: No service: No Current occupational status: unemployed Cognitive needs: No Hearing needs: No Vision needs: Yes Female Reproductive History Menstrual Age of Menarche: 9 Questionnaire PHQ-9 Over the last 2 weeks, how often have you been bothered by any of the following problems? 1. Little interest or pleasure in doing things: not at all 2. Feeling down, depressed, or hopeless: not at all 3. Trouble falling or staying asleep, or sleeping too much: not at all 4. Feeling tired or having little energy: not at all 5. Poor appetite or overeating: not at all 6. Feeling bad about yourself - or that you are a failure or have let yourself or your family down: not at all 7. Trouble concentrating on things, such as reading the newspaper or watching television: not at all 8. Moving or speaking so slowly that other people could have noticed. Or the opposite - being so fidgety or restless that you have been moving around a lot more than usual: not at all 9. Thoughts that you would be better off or of hurting yourself in some way: not at all Total score: 0 Depression Screening Interpretation: Negative (Stable controlled on fluoxetine 30 mg daily) Depression Screening Done: Yes 09791 - PHQ-9 Billing: Yes Source: Developed by Drs. Hayden Cummings, Michelle Charlton, Alban Danielson and colleagues, with an educational sal from [employer]. Thrive Questionnaire Date Thrive assessed: 01/05/24 I am a: Patient What is your living situation today?: I have a steady place to live Within the past 12 months, did the food you bought not last and you didn't have the money to get more?: Never true Within the past 12 months, did you worry whether your food would run out before you got money to buy more?: Never true Do you have trouble paying for medicines?: No Do you have trouble getting transportation to medical appointments?: No Do you have trouble paying your heating and electricity bill?: No Do you have trouble taking care of your child, family member or friend?: No Do you have trouble with day-to-day activities such as bathing, preparing meals, shopping, managing finances, etc.?: No Are you currently unemployed and looking for a job?: No Are you interested in more education?: No Please select the resources that you would like help with: None THRIVE Score: 0 AUDIT C Alcohol Use Questionnaire (AUDIT-C) 1. How often do you have a drink containing alcohol?: Monthly or less 2. How many drinks containing alcohol do you have on a typical day when you are drinking?: 1 or 2 3. How often do you have six or more drinks on one occasion?: Never Total Score: 1 GIN-7 AMB Questionnaire GIN-7 Date GIN - 7 assessed: 01/05/24 Feeling nervous, anxious, or on edge: 0 = Not at all Not being able to stop or control worryin = Not at all Worrying too much about different things: 0 = Not at all Trouble relaxin = Not at all Being so restless that it is hard to sit still: 0 = Not at all Becoming easily annoyed or irritable: 1 = Several days Feeling afraid as if something awful might happen: 0 = Not at all Total GIN-7 score (0-4 normal; 5-9 mild; 10-14 moderate; 15-21 severe): 1 Source: Developed by Drs. Hayden Cumminsg, Michelle Charlton, Alban Danielson and colleagues, with an educational sal from [employer]. GIN-7 Assessment Billing GIN-7 Assessment Tool: GIN-7 Assessment 11276 Review of Systems Const Denies headache(s), Denies weakness and Reports weight loss ENT Denies dizziness, Denies headache(s) and Denies nasal congestion Card Denies chest pain, Denies lightheadedness, Denies palpitations and Denies dyspnea Resp Denies chest congestion, Denies cough and Denies dyspnea GI Denies abdominal pain and Denies change in bowel habits Reports no additional complaints and Denies dysuria Musc Denies arthralgias and Denies stiffness Skin/Breast Details: sees [facility] yearly Neuro Denies dizziness, Denies headache(s) and Denies weakness Psych Reports no additional complaints Endo Denies polydipsia and Denies palpitations Steffen/Lymph Denies easy bruising Physical exam (Primary Care) Vital Signs: Last Vital Signs Pulse 60 01/05/24 11:18 BP 130/80 01/05/24 11:18 Pulse Ox 95 01/05/24 11:18 Oxygen Delivery Method Room Air 01/05/24 11:18 BMI result Body Mass Index 31.7 Tobacco/Smoking Status: Tobacco use Status Tobacco use date assessed 01/05/24 01/05/24 11:22 Patient Tobacco Use Status Never used Tobacco 01/05/24 11:12 e-Cigarette/Vaping Use Never Used 01/05/24 11:12 Depression Screening Interpretation: Negative (Stable controlled on fluoxetine 30 mg daily) Thrive Assessment: Date of Thrive Assessment Date Thrive assessed 01/05/24 01/05/24 11:22 Const Other: Alert oriented x3, anxious looking, but cooperative with exam General: comfortable and no acute distress Nutritional Appearance: obese Orientation/consciousness: patient oriented x3 HENAL Head: Yes normocephalic Neck Neck: Yes full ROM, Yes no lymphadenopathy and Yes supple Resp Effort & Inspection: normal respiratory effort and able to speak in complete sentences Auscultation: clear to auscultation bilaterally Cardio Other: S1-S2 present regular rate and rhythm Rate: regular rate Rhythm: regular rhythm Heart sounds: S1 normal heart sound present and S2 normal heart sound present GI Palpation (GI): Soft to palpation, nontender and no masses Auscultation: normal bowel sounds Neuro General: patient oriented x3, gait normal and no focal motor deficits Extrem General: Yes full ROM, Yes no joint enlargement, Yes no clubbing, cyanosis or edema, Yes no calf tenderness and Yes normal gait Psych Appearance: grossly normal and well kempt Mental Status: mental status grossly normal Speech and movement: Normal speech and movement present Affect: normal affect Attitude: cooperative Thought process: Normal thought process present Assessment and Plan Assessment & Plan (1) Essential hypertension: Code(s): I10 - Essential (primary) hypertension Plan: Blood pressure at goal of less than 130/80. Continue with lisinopril 5 mg but take it in the morning instead of at night. Refill sent for 30 tablets to [facility] and another 90 tablets to her mail[facility]order [facility]. Reinforced importance of following a low sodium diet, getting regular exercise, and lowering stress levels. (2) Mixed anxiety and depressive disorder: Code(s): F41.8 - Other specified anxiety disorders Plan: Stable and controlled on fluoxetine 30 mg daily which he takes at night, continue (3) Hyperlipidemia: Code(s): E78.5 - Hyperlipidemia, unspecified Qualifiers: Hyperlipidemia type: pure hypercholesterolemia Qualified Code(s): E78.00 - Pure hypercholesterolemia, unspecified Plan: Reviewed recent fasting lipid profile with patient with LDL cholesterol higher than last check. Stressed importance of following a low-cholesterol diet and regular exercise, at least 30 minutes 3 to 4 times a week. Advised patient to make healthy food choices, eat more fruits, vegetables, whole grains, wild caught fish and low-fat dairy. Limit amount of meat and fried or fatty food products, as well as processed foods and fast foods. Orders: Orders Lipid Panel 04/26/24 E78.5 - Hyperlipidemia, unspecified, I10 - Essential (primary) hypertension Medications: Refilled lisinopril 5 mg PO DAILY 30 tabs 0RF lisinopril 5 mg PO DAILY 90 tabs 1RF I10 - Essential (primary) hypertension Coding Level of Care Code Est Pt Level 4 (57870) Diagnoses Essential hypertension I10 Mixed anxiety and depressive disorder F41.8 Pure hypercholesterolemia E78.00 Hyperlipidemia type: pure hypercholesterolemia Additional Codes GIN-7 Assessment Billing - GIN-7 Assessment Tool: GIN-7 Assessment 45769 ([id number])
[2024-01-05 11:18] VITALS: BP 130/80; PULSE 60; O2SAT 95; BMI 31.7
== END 2024-01-05 11:44 | disposition home or self-care (01) ==
PROVIDERS: PCP Internal Medicine; Visit Provider Internal Medicine
DX: I10 Essential (primary) hypertension (principal); F41.8 Other specified anxiety disorders; E78.00 Pure hypercholesterolemia, unspecified
CPT/HCPCS: 99214

== ENCOUNTER 2024-05-17 09:24 | Outpatient (REF) | payer BC, SELFPAY ==
[2024-05-17 13:56] LABS: Cholesterol 197 mg/dL (<200); Glucose Fasting 96 mg/dL (60-99); HDL Cholesterol 60 mg/dL (>40); LDL Cholesterol Calculated 126 mg/dL (<100); Triglycerides 55 mg/dL (<150); Vitamin D 25-OH Total 135.2 ng/mL (>30)
== END 2024-05-17 09:25 | disposition home or self-care (01) ==
LOC: HO.HMGCLDS 09:24
PROVIDERS: PCP Internal Medicine; Visit Provider Internal Medicine
DX: Z00.01 Encounter for general adult medical examination with abnormal findings (principal); E55.9 Vitamin D deficiency, unspecified; G47.9 Sleep disorder, unspecified; R06.83 Snoring; G47.19 Other hypersomnia; I10 Essential (primary) hypertension; E78.5 Hyperlipidemia, unspecified
CPT/HCPCS: 36415; 80061; 82306; 82947

== ENCOUNTER 2024-05-25 11:04 | Outpatient (AMB) | payer BC, SELFPAY ==
[2024-05-25 11:27] VITALS: BP 130/70; PULSE 65; O2SAT 99; BMI 29.4
--- NOTE | 2024-05-25 11:27 | MHC.PC.OV ---
Vital Signs 05/25/24 11:27 Height 5 ft 3 in Weight 166 lb BMI 29.4 BP 130/70 Blood Pressure Location Rt brachial Position Sitting Pulse 65 Pulse Source Pulse Oximeter Pulse Oximetry (%) 99 Oxygen Delivery Method Room Air Intake Visit Reasons: Annual PE Intake Note: Pt is here today for her PE: last mammogram 07/10/21, colorguard 2021 and papsmear 05/28/21 Allergies adhesive tape [ADHESIVE TAPE] Allergy (Unknown, Verified 05/25/24 11:49) RASH neomycin Allergy (Unknown, Verified 05/25/24 11:49) rash thimerosal Allergy (Unknown, Verified 05/25/24 11:49) itching Iodinated Contrast Media [Contrast Dye] Adverse Reaction (Verified 05/25/24 11:49) Itching Medication List - Last Reconciled 05/25/24 by Macie Valdovinos MD fluoxetine 20 mg PO DAILY fluoxetine 10 mg PO DAILY lisinopril 5 mg PO DAILY Tobacco use date assessed: 05/25/24 Dental Screening Dental Screen Date: 05/25/24 Did you have a dental visit in the last 12 months?: Yes Did you have a dental problem in the last 6 months where you did not have access to dental care?: No Was dental information given to patient?: Patient has dentist HPI Annual PE HPI Details 59-year-old lady here today for physical exam. She has hypertension with blood pressure stable and controlled on current dose of lisinopril at 5 mg daily She takes fluoxetine 30 mg daily for her mixed anxiety and depression which is currently stable on present medications. She is due for her mammogram last done earlier this year at [facility] with benign findings per patient, up-to-date with her colon cancer screening, had cologuard in 06/13/21 with negative findings, due again for recheck. She is up-to-date with her cervical cancer screening, with last papsmear done 05/28/[address] Carolina CRAFT Medical History (Updated 05/25/24 @ 12:11 by Macie Valdovinos MD) History of rib fracture Hyperlipidemia Essential hypertension Mixed anxiety and depressive disorder Annual visit for general adult medical examination with abnormal findings Vitamin D deficiency Increased risk of breast cancer Obesity History of anemia Depression COPD (chronic obstructive pulmonary disease) BERT (obstructive sleep apnea) Surgical History History of hand surgery Hx of section History of endometrial ablation No pertinent past surgical history Family History Father Lung cancer Mother Lung cancer Sister Melanoma Breast cancer, Onset Age: 52 Maternal Aunt Breast cancer Brain cancer Paternal Grandfather Lung cancer Breast cancer Maternal Uncle Lung cancer Maternal Aunt Breast cancer Maternal Uncle Lung cancer Paternal Uncle Breast cancer Lung cancer Paternal Grandmother Stomach cancer Paternal Aunt Lymphoma Social History Household Members: Spouse and Children Housing: House Are you a primary direct care supervisor to a significant other at home: No Do you presently have visiting nurse or other home services: No Alcohol intake: current Patient Tobacco Use Status: Never used Tobacco e-Cigarette/Vaping Use: Never Used Second Hand Smoke Exposure: No service: No Current occupational status: unemployed Cognitive needs: No Hearing needs: No Vision needs: Yes Female Reproductive History Menstrual Age of Menarche: 9 Questionnaire PHQ-9 Over the last 2 weeks, how often have you been bothered by any of the following problems? 1. Little interest or pleasure in doing things: not at all 2. Feeling down, depressed, or hopeless: not at all 3. Trouble falling or staying asleep, or sleeping too much: more than half the days 4. Feeling tired or having little energy: several days 5. Poor appetite or overeating: several days 6. Feeling bad about yourself - or that you are a failure or have let yourself or your family down: not at all 7. Trouble concentrating on things, such as reading the newspaper or watching television: not at all 8. Moving or speaking so slowly that other people could have noticed. Or the opposite - being so fidgety or restless that you have been moving around a lot more than usual: not at all 9. Thoughts that you would be better off or of hurting yourself in some way: not at all Total score: 4 Depression Screening Interpretation: Positive (Stable on fluoxetine 30 mg daily, sees therapist, Antionette Kramer) Depression Screening Follow-up: Existing condition, In treatment and Community Mental Health Worker F/U Depression Screening Done: Yes Source: Developed by Drs. Hayden Cummings, Michelle Charlton, Alban Danielson and colleagues, with an educational sal from [employer]. Thrive Questionnaire Date Thrive assessed: 01/05/24 I am a: Patient What is your living situation today?: I have a steady place to live Within the past 12 months, did the food you bought not last and you didn't have the money to get more?: I choose not to answer this question Within the past 12 months, did you worry whether your food would run out before you got money to buy more?: I choose not to answer this question Do you have trouble paying for medicines?: I choose not to answer this question Do you have trouble getting transportation to medical appointments?: No Do you have trouble paying your heating and electricity bill?: I choose not to answer this question Do you have trouble taking care of your child, family member or friend?: No Do you have trouble with day-to-day activities such as bathing, preparing meals, shopping, managing finances, etc.?: No Are you currently unemployed and looking for a job?: Yes Are you interested in more education?: No Please select the resources that you would like help with: Housing/Group Home Currently or been in a relationship where the following occur: I choose not to answer THRIVE Score: 0 AUDIT C Alcohol Use Questionnaire (AUDIT-C) 1. How often do you have a drink containing alcohol?: Monthly or less 2. How many drinks containing alcohol do you have on a typical day when you are drinking?: 1 or 2 3. How often do you have six or more drinks on one occasion?: Never Total Score: 1 GIN-7 AMB Questionnaire GIN-7 Date GIN - 7 assessed: 01/05/24 Feeling nervous, anxious, or on edge: 1 = Several days Not being able to stop or control worryin = Several days Worrying too much about different things: 1 = Several days Trouble relaxin = Several days Being so restless that it is hard to sit still: 0 = Not at all Becoming easily annoyed or irritable: 0 = Not at all Feeling afraid as if something awful might happen: 0 = Not at all Total GIN-7 score (0-4 normal; 5-9 mild; 10-14 moderate; 15-21 severe): 4 Source: Developed by Drs. Hayden Cummings, Michelle Charlton, Alban Danielson and colleagues, with an educational sal from [employer]. GIN-7 Assessment Billing GIN-7 Assessment Tool: GIN-7 Assessment 58046 Review of Systems Const Denies headache(s) and Denies weakness Eyes Details: Currently followed at my eye doctor in [place] Reports blurry vision and Reports requires corrective lenses ENT Details: Sees her dentist every 6 months for cleaning Denies dizziness, Denies headache(s) and Denies nasal congestion Card Denies chest pain, Denies lightheadedness, Denies palpitations and Denies dyspnea Resp Denies chest congestion, Denies cough and Denies dyspnea GI Denies abdominal pain and Denies change in bowel habits Reports no additional complaints and Denies dysuria Musc Denies arthralgias and Denies stiffness Skin/Breast Details: sees [place] [facility] yearly Neuro Denies dizziness, Denies headache(s) and Denies weakness Psych Reports no additional complaints Endo Denies polydipsia and Denies palpitations Steffen/Lymph Denies easy bruising Aller/Immun Reports no additional complaints Physical exam (Primary Care) Vital Signs: Last Vital Signs Pulse 65 05/25/24 11:27 BP 130/70 05/25/24 11:27 Pulse Ox 99 05/25/24 11:27 Oxygen Delivery Method Room Air 05/25/24 11:27 BMI result Body Mass Index 29.4 Tobacco/Smoking Status: Tobacco use Status Tobacco use date assessed 05/25/24 05/25/24 11:29 Patient Tobacco Use Status Never used Tobacco 05/25/24 11:29 e-Cigarette/Vaping Use Never Used 05/25/24 11:29 PHQ-9: PHQ-9 Score PHQ-9: Total score 4 05/25/24 12:12 Depression Screening Interpretation: Positive (Stable on fluoxetine 30 mg daily, sees therapist, Antionette Kramer) Depression Screening Follow-up: Existing condition, In treatment and Community Mental Health Worker F/U Thrive Assessment: Date of Thrive Assessment Date Thrive assessed 01/05/24 05/25/24 11:29 Currently or been in a relationship where the following occur: I choose not to answer Advance Care Planning discussion: Completed/Scanned Date of discussion: 05/25/24 Who was present: Patient Forms completed: Health Care Proxy Time spent: 16-45 minutes Actual minutes spent: 16 Const Other: Alert oriented x3, anxious looking, but cooperative with exam General: comfortable and no acute distress Nutritional Appearance: obese Orientation/consciousness: patient oriented x3 HENMT Head: Yes normocephalic Neck Neck: Yes full ROM, Yes no lymphadenopathy and Yes supple Chest Chest palpation & inspection: normal inspection of the chest Breast/axilla palpation: normal palpation of the breasts Resp Effort & Inspection: normal respiratory effort and able to speak in complete sentences Auscultation: clear to auscultation bilaterally Cardio Other: S1-S2 present regular rate and rhythm Rate: regular rate Rhythm: regular rhythm Heart sounds: S1 normal heart sound present and S2 normal heart sound present GI Palpation (GI): Soft to palpation, nontender and no masses Auscultation: normal bowel sounds General: Yes no CVA tenderness Back/Spine/Pelvis Back: no CVA tenderness Skin General skin exam: no rashes or lesions noted Neuro General: patient oriented x3, gait normal and no focal motor deficits Extrem General: Yes full ROM, Yes no joint enlargement, Yes no clubbing, cyanosis or edema, Yes no calf tenderness and Yes normal gait Psych Appearance: grossly normal and well kempt Mental Status: mental status grossly normal Speech and movement: Normal speech and movement present Affect: normal affect Attitude: cooperative Thought process: Normal thought process present Results Reviewed Results Reviewed: Laboratory Tests 12/26/23 05/17/24 09:30 09:52 WBC 4.6 L Hgb 13.3 Hct 40.4 MCV 91.2 MCH 30.0 RDW 12.7 Plt Count 290 Fasting Glucose 96 Name: Sandi Olivo Age/Sex: 59/F : 1965 Unit#: [id number] Attend Dr: Macie Valdovinos MD Re05/17/24 Status: DEP REF Location: [facility] Disch: SPEC : [id number] OLIVIA: 05/17/24 STATUS: COMP REQ : [id number] RECD: 05/17/24-[address]: Macie Valdovinos MD COMP: 05/17/24 ENTERED: 05/17/[address]: ORDERED: Glu Fasting, Lipid Panel, Vitamin D 25-OH Test Result Flag Reference FBS 96 60-99 mg/dL Triglyceride 55 <150 mg/dL Desirable Triglyceride: less than 150 mg/dL Borderline High Triglyceride 150-199 mg/dL High Triglyceride: 200-499 mg/dL Very High Triglyceride: greater than or equal to 5OO mg/dL Cholesterol 197 <200 mg/dL Desirable Cholesterol: less than 200 mg/dL Borderline High Cholesterol: 200-239 mg/dL High Cholesterol: greater than 239 mg/dL LDL Calculated 126 H <100 mg/dL Desirable LDL: less than 100 mg/dL Near Optimal/Above Optimal LDL: 110-129 mg/dL Borderline High LDL: 130-159 mg/dL High LDL: 160-189 mg/dL Very High LDL: greater than or equal to 190 mg/dL HDL 60 >40 mg/dL Desirable HDL: greater than 40 mg/dL Note: This HDL assay may give artificially low results in patients with liver disease. Vit D 25-OH Tot 135.2 >30 ng/mL Health Based Reference Values* < 20 ng/mL Deficient 20-30 ng/mL Insufficient > 30 ng/mL Sufficient Assessment and Plan Assessment & Plan (1) Annual visit for general adult medical examination with abnormal findings: Code(s): Z00.01 - Encounter for general adult medical examination with abnormal findings Plan: Fasting lab results reviewed with patient. Continue regular dental visit every 6 months and regular eye exams, at least every 2 years. Take adequate calcium in diet and vitamin-D 3 at 2000 IU per cap once a day, in addition to weight-bearing exercises to help maintain good muscle tone and weight control. Instructed to do self-breast exam, and continue to get yearly mammogram, up-to-date with her cervical cancer screening, goes to Dr. Figueroa for her routine Pap and pelvic exam. She is also up-to-date with her colon cancer screening had Cologuard testing done in 2020 which came back with negative findings, due again this year.. (2) Essential hypertension: Code(s): I10 - Essential (primary) hypertension Plan: Blood pressure at goal of less than 130/80. Continue with current medication. Reinforced importance of following a low sodium diet, getting regular exercise, and lowering stress levels. 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 Advanced Directives help patients prepare for current and future decisions about their medical treatment and place of care. Discussed with patient that it is a process where a patients current condition and prognosis are reviewed, their wishes for information regarding their illness are elicited, and likely medical dilemmas are presented and options discussed. Healthcare proxy form was completed today. The form can be amended as needed, reviewed yearly and make changes as needed Orders: Referrals Cologuard Test Z12.11 - Encounter for screening for malignant neoplasm of colon, Z12.12 - Encounter for screening for malignant neoplasm of rectum Medications: Refilled lisinopril 5 mg PO DAILY 90 tabs 4RF I10 - Essential (primary) hypertension fluoxetine 20 mg PO DAILY 90 caps 3RF fluoxetine 10 mg PO DAILY 90 caps 3RF Coding Level of Care Code Est Pt Prev Care 40-64y(93270) Diagnoses Annual visit for general adult medical examination with abnormal findings Z00.01 Essential hypertension I10 Pure hypercholesterolemia E78.00 Hyperlipidemia type: pure hypercholesterolemia Mixed anxiety and depressive disorder F41.8 Vulvar leukoplakia N90.4 Advanced directives, counseling/discussion Z71.89 Additional Codes Vital Signs *Quality* - Advance Care Planning discussion: Completed/Scanned ([id number]) Vital Signs *Quality* - Time spent: 16-45 minutes ([id number]) GIN-7 Assessment Billing - GIN-7 Assessment Tool: GIN-7 Assessment [id number] ([id number])
== END 2024-05-25 12:12 | disposition home or self-care (01) ==
PROVIDERS: PCP Internal Medicine; Visit Provider Internal Medicine
DX: Z00.00 Encounter for general adult medical examination without abnormal findings (principal); I10 Essential (primary) hypertension; E78.00 Pure hypercholesterolemia, unspecified; F41.8 Other specified anxiety disorders; N90.4 Leukoplakia of vulva; Z71.89 Other specified counseling
CPT/HCPCS: 1123F; 99396; 99497

== ENCOUNTER 2025-01-04 13:37 | Outpatient (AMB) | payer BC, SELFPAY ==
--- NOTE | 2025-01-04 13:53 | AM.OFFWIN_ITS ---
Intake Vital Signs 01/04/25 13:56 Height 5 ft 3 in Weight 76.204 kg BMI 29.8 BP 118/70 Blood Pressure Location Rt brachial Position Sitting Pulse 75 Pulse Source Pulse Oximeter Temp 98.7 F Temp Source Oral Pulse Oximetry (%) 98 Oxygen Delivery Method Room Air Intake Visit Reasons: EP ? bronchitis, ear pain Intake Note: Patient here for bilat ear pain, cough and congestion that has been present for about 4 days. Patient Tobacco Use Status: Never used Tobacco Allergies adhesive tape [ADHESIVE TAPE] Allergy (Unknown, Verified 01/04/25 13:57) RASH neomycin Allergy (Unknown, Verified 01/04/25 13:57) rash thimerosal Allergy (Unknown, Verified 01/04/25 13:57) itching Iodinated Contrast Media [Contrast Dye] Adverse Reaction (Verified 01/04/25 13:57) Itching Do you need a note to return to daycare/school/sports/work: No HPI EP ? bronchitis, ear pain HPI Details Patient presents with 4+ days of chest congestion, wheezing, cough, sinus pressure and bilateral ear pain. She notes history of bronchial illness annually around this time of year with weather changes. She does have COPD. Denies chest pain, shortness of breath, GI symptoms, epistaxis, hearing loss. She has not done any home viral swabs. [facility] Medical History (Updated 01/04/25 @ 14:53 by ALLAN Villalobos) History of rib fracture Hyperlipidemia Essential hypertension Mixed anxiety and depressive disorder Annual visit for general adult medical examination with abnormal findings Vitamin D deficiency Increased risk of breast cancer Obesity History of anemia Depression COPD (chronic obstructive pulmonary disease) BERT (obstructive sleep apnea) Surgical History History of hand surgery Hx of section History of endometrial ablation No pertinent past surgical history Family History Father Lung cancer Mother Lung cancer Sister Melanoma Breast cancer, Onset Age: 52 Maternal Aunt Breast cancer Brain cancer Paternal Grandfather Lung cancer Breast cancer Maternal Uncle Lung cancer Maternal Aunt Breast cancer Maternal Uncle Lung cancer Paternal Uncle Breast cancer Lung cancer Paternal Grandmother Stomach cancer Paternal Aunt Lymphoma Social History Household Members: Spouse and Children Housing: House Are you a primary anesthesiologist and critical care to a significant other at home: No Do you presently have visiting nurse or other home services: No Alcohol intake: current Patient Tobacco Use Status: Never used Tobacco e-Cigarette/Vaping Use: Never Used Second Hand Smoke Exposure: No service: No Current occupational status: unemployed Cognitive needs: No Hearing needs: No Vision needs: Yes Female Reproductive History Menstrual Age of Menarche: 9 Review of Systems Const All systems reviewed & are unremarkable except as noted in HPI and below Physical Exam Vital Signs: Last Vital Signs Temp 98.7 F 01/04/25 13:56 Pulse 75 01/04/25 13:56 BP 118/70 01/04/25 13:56 Pulse Ox 98 01/04/25 13:56 Oxygen Delivery Method Room Air 01/04/25 13:56 BMI result Body Mass Index 29.8 Const General: cooperative, comfortable and no acute distress Orientation/consciousness: patient oriented x3 HEENT Ears: hearing grossly normal bilaterally, external ears normal and TM's normal bilaterally (Clear fluid and bilateral injection without purulent fluid or bulging) General nose exam: Abnormal mucous membranes and turbinates present boggy and pale and Nasal discharge present mucoid Face and sinus: Yes normal facial exam Mouth: Normal oral and palatal mucosa present Throat: Yes posterior oropharynx normal Neck Neck: Yes no lymphadenopathy Resp Effort & Inspection: normal respiratory effort and Actively coughing Quality: wet Auscultation: wheezes expiratory wheezes, scattered wheezes and lower bilaterally Cardio Rate: regular rate Rhythm: regular rhythm Heart sounds: S1 normal heart sound present and S2 normal heart sound present Neuro General: patient oriented x3 Extrem General: Yes no pedal edema Assessment & Plan Assessment & Plan (1) COPD (chronic obstructive pulmonary disease): Code(s): J44.9 - Chronic obstructive pulmonary disease, unspecified Qualifiers: COPD type: COPD with acute exacerbation Qualified Code(s): J44.1 - Chronic obstructive pulmonary disease with (acute) exacerbation (2) Acute upper respiratory infection: Code(s): J06.9 - Acute upper respiratory infection, unspecified Plan Viral swabs collected will report results as available. Patient prescribed azithromycin as well as a short course of prednisone for COPD exacerbation in the setting of acute respiratory infection. ER if symptoms worsen, return to clinic or see PCP or pulmonology if symptoms do not improve over the next 5-7 days. Orders: Orders SARS-CoV2/FLU/RSV Today J22 - Unspecified acute lower respiratory infection Medications: New prednisone 20 mg PO DAILY 5 days 5 tabs 0RF azithromycin (Zithromax Z-Evangelista) 2 pills day one then 1 pill per day x 4 days 250 mg PO DAILY 5 days 6 tabs 0RF Coding Level of Care Code Est Pt Level 3 (27475) Diagnoses Chronic obstructive pulmonary disease with acute exacerbation J44.1 COPD type: COPD with acute exacerbation Acute upper respiratory infection J06.9
[2025-01-04 13:56] VITALS: BP 118/70; PULSE 75; TEMP 37.1; O2SAT 98; BMI 29.8
--- OUTSIDE RECORDS SUMMARY | 2025-01-04 16:32 | XMS_ITS | Data Portability ---
Author Organization [facility], Main Office Address [address] [facility] [address] [place] [id number] Care Team Providers Care Gravity Meter Operator Name Role Phone TODDBOOM MITCHELL Primary Care Provider VALENTE ORTEGA OTHER KEVEN MEZA Marine Steam Fitter [phone] [facility] Orthopedic Surgeon LORENZO BUNCH Orthopedic Surgeon [phone] DAVID ACOSTA OTHER Assessment Encounter Date Assessment Date Assessment LastModified by Organization Details LastModified Time 04/28/2017 04/28/2017 Reviewed options for care. Will have her taper down dose of SSRI and add TCA. Advised to use TCA for the next 2-4 weeks consistently for insomnia and headaches and then may use as needed. Okay to use triptan with lower dose of SSRI. [email or web address] Not available 04/28/2017 10:47:16 Plan of Treatment Reminders Order Date Submit Date Provider Last Modified By Organization Details Last Modified Time Details Appointments None recor ded. Lab CBC w/ auto diff 2016 017 [facility], [address], [address], [place], [address], 7 14:24:20 TSH, serum or plasm a 2016 017 [facility], [address], [address], [place], [address], 7 14:35:26 vitam in D, 25-hy droxy , total , serum 2016 017 [facility], [address] [facility], [address], [address], 7 23:40:51 urina lysis , compl ete 2014 015 abolcun Not available 6 10:49:29 CMP, serum or plasm a 2014 015 IRASEMA Not available 5 12:24:22 vitam in D, 25-hy droxy , total , serum 2014 015 abolcun Not available 6 10:49:24 SARAH (anti nucle ar antib odies ) scree n, serum 2014 015 abolcun Not available 6 10:49:25 C-leonidas ctive prote in, quali tativ e, serum 2014 015 abolcun Not available 6 10:49:27 lyme disea se Ab, serum 2014 015 abolcun Not available 6 10:49:28 Referral nutri lety deutsch/zohreh friend an refer ral 2014 015 zuly Not available 5 14:41:00 Procedures colon oscop y scredee barger (PROC ) - for routi ne colon cance r scree denita 2014 015 abolcun [facility], [address] [place], [address], 5 08:24:58 Surgeries None recor ded. Imaging x-ray , knee, 3 view - for eval of left knee pain, rule out fract ure and arthr itis 2014 015 abolcun Not available 5 15:34:22 Medication Orders Vitam in D3 25 mcg (1,00 0 unit) capsu le 2016 017 zuly [facility], [address] [place], [address], 7 12:07:56 napro xen 500 mg table t 2016 017 [facility], [address], [place], [id number], 7 12:08:03 fluox etine 20 mg capsu le 2016 017 [facility], [address], [place], [id number], 7 10:40:09 amitr iptyl ine 10 mg table t 2016 017 [facility]210[facility], [address], [place], [id number], 7 10:40:08 sumat ripta n 100 mg table t 2016 017 INTERFACE [facility], [address] [place] [address], [address], 7 10:40:05 fluox etine 20 mg capsu le 2016 017 [facility], [address], [place], [id number], 7 11:43:27 cyclo benza davon 10 mg table t 2014 015 abolcun [facility]030, [address], [place], [id number], 7 10:06:32 napro xen 500 mg table t 2014 015 abolcun [facility]65403, [address], [place], [id number], 7 10:06:41 Patient Targets Encounter Date Encounter Id Patient Goals Patient Target Last Modified By Organization Details Last Modified Time 02/09/2015 [id number] group home goal of Excess Body Weight Loss % 5 Not available Not available Not available Pt advised and agrees to work on self-monitoring behaviors; begin an appropriate diet for weight loss (such as a low carbohydrate diet), to do moderate exercise (such as walking) for approximately 150 minutes per week; and to identify desirable and timely rewards that will reinforce achievement of specific weight loss goals. [email or web address] Not available 02/09/2015 14:40:59 Patient Instructions Encounter Date Encounter Id Patient Instructions Last Modified By Organization Details Last Modified Time 02/09/2015 [id number] sleep apnea: care instructions [email or web address] Not available 02/09/2015 14:40:59 Colon Cancer Screening VMA ckry Not available 02/15/2015 09:21:45 starting a weight loss plan: care instructions [email or web address] Not available 02/09/2015 14:40:59 Nutrition Referral and Weight Management Follow-up Information ckry Not available 02/15/2015 09:21:45 Medications were reviewed at this visit and reconciled. Changes in the active medications are reflected in the current medication list and discussed with patient (or caregiver) with instructions for follow up as needed. Printed medication list provided to the patient as part of the visit summary. [email or web address] Not available 02/09/2015 14:09:15 06/02/2015 [id number] tennis elbow: care instructions [email or web address] Not available 06/05/2015 13:02:41 pinkeye: care instructions awychowski Not available 06/05/2015 13:02:41 back pain: care instructions awychowski Not available 06/05/2015 13:02:41 meniscus tear: exercises awychowski Not available 06/05/2015 13:02:41 knee pain or injury: care instructions [email or web address] Not available 06/05/2015 13:02:41 12/26/2016 [id number] abnormal weight loss: care instructions Not available 12/26/2016 12:56:55 Preventing Depression From Coming Back: Care Instructions Not available 12/26/2016 12:56:55 04/28/2017 [id number] depression treatment: care instructions Not available 04/28/2017 11:09:37 insomnia: care instructions Not available 04/28/2017 11:09:36 08/01/2017 [id number] anxiety disorder: care instructions [email or web address] Not available 08/01/2017 12:22:11 Reason for Referral Bread Oven Operator/dietitian Refer ral for Body mass index 30+ - obesity Referring Physician: Boom Gómez, Family Medicine, Encounter Date: 02/09/2015 Results Created Date Observation Date Name Description Value Unit Range Abnormal Flag Note LastModifiedBy Organization Detail LastModifiedTime 12/27/1912/26/2016 CBC w/ auto diff WBC 5.1 K/mm3 (4.0-1 1.0) Not Available [facility] (Centralized Electronic Ordering - All Locations) Patient Can Go To The Location Of Their Choice, 12/26/2016 14:24:20 12/27/1912/26/2016 CBC w/ auto diff RBC 3.89 M/mm3 (4.20- 5.40) low Not Available [facility] (Centralized Electronic Ordering - All Locations) Patient Can Go To The Location Of Their Choice, 12/26/2016 14:24:20 12/27/1912/26/2016 CBC w/ auto diff HGB 11.2 gm/dL (12.0- 16.0) low Not Available [facility] (Centralized Electronic Ordering - All Locations) Patient Can Go To The Location Of Their Choice, 12/26/2016 14:24:20 12/27/1912/26/2016 CBC w/ auto diff HCT 34.2 % (37.0- 47.0) low Not Available [facility] (Centralized Electronic Ordering - All Locations) Patient Can Go To The Location Of Their Choice, 12/26/2016 14:24:20 12/27/1912/26/2016 CBC w/ auto diff MCV 87.9 fL (80.0- 100.0) Not Available [facility] (Centralized Electronic Ordering - All Locations) Patient Can Go To The Location Of Their Choice, 12/26/2016 14:24:20 12/27/1912/26/2016 CBC w/ auto diff MCH 28.8 pg (27.0- 34.0) Not Available [facility] (Centralized Electronic Ordering - All Locations) Patient Can Go To The Location Of Their Choice, 12/26/2016 14:24:20 12/27/1912/26/2016 CBC w/ auto diff MCHC 32.7 g/dL (33.0- 37.0) low Not Available [facility] (Centralized Electronic Ordering - All Locations) Patient Can Go To The Location Of Their Choice, 12/26/2016 14:24:20 12/27/1912/26/2016 CBC w/ auto diff plt 325 K/mm3 (150-4 60) Not Available [facility] (Centralized Electronic Ordering - All Locations) Patient Can Go To The Location Of Their Choice, 12/26/2016 14:24:20 12/27/1912/26/2016 CBC w/ auto diff RDW-SD 46.1 fL (<47.0 ) Not Available [facility] (Centralized Electronic Ordering - All Locations) Patient Can Go To The Location Of Their Choice, 12/26/2016 14:24:20 12/27/1912/26/2016 CBC w/ auto diff MPV 10.2 fL (9.4-1 2.4) Not Available [facility] (Centralized Electronic Ordering - All Locations) Patient Can Go To The Location Of Their Choice, 12/26/2016 14:24:20 12/27/1912/26/2016 CBC w/ auto diff automated NRBC 0.0 #/100 _WBC' s Not Available [facility] (Centralized Electronic Ordering - All Locations) Patient Can Go To The Location Of Their Choice, 12/26/2016 14:24:20 12/27/1912/26/2016 CBC w/ auto diff abs. NRBC 0.0 K/mm3 Not Available [facility] (Centralized Electronic Ordering - All Locations) Patient Can Go To The Location Of Their Choice, 12/26/2016 14:24:20 12/27/1912/26/2016 CBC w/ auto diff neut # 3.1 K/mm3 (1.3-7 .0) Not Available [facility] (Centralized Electronic Ordering - All Locations) Patient Can Go To The Location Of Their Choice, 12/26/2016 14:24:20 12/27/1912/26/2016 CBC w/ auto diff lymph # 1.1 K/mm3 (0.8-3 .1) Not Available [facility] (Centralized Electronic Ordering - All Locations) Patient Can Go To The Location Of Their Choice, 12/26/2016 14:24:20 12/27/1912/26/2016 CBC w/ auto diff mono# 0.6 K/mm3 (0.4-0 .9) Not Available [facility] (Centralized Electronic Ordering - All Locations) Patient Can Go To The Location Of Their Choice, 12/26/2016 14:24:20 12/27/1912/26/2016 CBC w/ auto diff eo # 0.3 K/mm3 (0.0-0 .4) Not Available [facility] (Centralized Electronic Ordering - All Locations) Patient Can Go To The Location Of Their Choice, 12/26/2016 14:24:20 12/27/1912/26/2016 CBC w/ auto diff baso # 0.1 K/mm3 (0.0-0 .1) Not Available [facility] (Centralized Electronic Ordering - All Locations) Patient Can Go To The Location Of Their Choice, 12/26/2016 14:24:20 12/27/1912/26/2016 CBC w/ auto diff abs. imm gran 0.0 K/mm3 Not Available [facility] (Centralized Electronic Ordering - All Locations) Patient Can Go To The Location Of Their Choice, 12/26/2016 14:24:20 12/27/1912/26/2016 CBC w/ auto diff neut 59.6 % (44-76 ) Not Available [facility] (Centralized Electronic Ordering - All Locations) Patient Can Go To The Location Of Their Choice, 12/26/2016 14:24:20 12/27/1912/26/2016 CBC w/ auto diff lymph 22.0 % (15-43 ) Not Available [facility] (Centralized Electronic Ordering - All Locations) Patient Can Go To The Location Of Their Choice, 12/26/2016 14:24:20 12/27/1912/26/2016 CBC w/ auto diff monocyte 12.3 % (4.5-1 0.5) high Not Available [facility] (Centralized Electronic Ordering - All Locations) Patient Can Go To The Location Of Their Choice, 12/26/2016 14:24:20 12/27/1912/26/2016 CBC w/ auto diff eo 4.9 % (0-6) Not Available [facility] (Centralized Electronic Ordering - All Locations) Patient Can Go To The Location Of Their Choice, 12/26/2016 14:24:20 12/27/19 17 12/26/2016 CBC w/ auto diff baso 1.0 % (0-2) Not Available [facility] (Centralized Electronic Ordering - All Locations) Patient Can Go To The Location Of Their Choice, 12/26/2016 14:24:20 12/27/19 17 12/26/2016 CBC w/ auto diff imm gran 0.2 % (0.0-0 .6) Not Available [facility] (Centralized Electronic Ordering - All Locations) Patient Can Go To The Location Of Their Choice, 12/26/2016 14:24:20 12/27/1912/26/2016 TSH, serum or plasm a TSH 2.55 mIU/m L (0.40- 4.00) Not Available [facility] (Centralized Electronic Ordering - All Locations) Patient Can Go To The Location Of Their Choice, 12/26/2016 14:35:26 12/27/1912/26/2016 vitam in D, 25-hy droxy , total , serum 25OH vitamin D 22.8 NG/mL (20-50 ) SERUM 25OHD : 20 TO 50 NG/ML : SUFFI CIENT IN VITAM IN D. Refer ence: [facility] Data Brief : No.59 December: Vitam in D Statu s: Unite d State s: 2000- 2005 Not Available [facility] (Centralized Electronic Ordering - All Locations) Patient Can Go To The Location Of Their Choice, 12/26/2016 23:40:51 01/01/2012/31/2016 thalia tin, serum or plasm a ferritin 7 NG/mL (14-28 3) low Not Available [facility] (Centralized Electronic Ordering - All Locations) Patient Can Go To The Location Of Their Choice, 12/31/2016 16:39:30 04/13/20 15 04/12/2015 imagi ng/di agnos tic resul t No observ ation record ed. [email or web address] Not Available 06/05 12:59:14 06/02/20 15 06/02/2015 knee routi ne 3 views left Knee 3 Views Left INDICA TION: knee pain ro fractu re or arthri tis COMPAR TERRI: FINDIN GS: No fractu re or disloc ation. No bone lesion s. Bone minera lizati on is normal . No osseou s degene rative change . There is mild narrow ing of the medial joint compar tment. Latera l and patell ofemor al compar tments are preser riley. No joint effusi on is presen t and soft tissue s are otherw ise unrema rkable . IMPRES KANDACE: No acute abnorm ality. Mild cartil age loss in the medial compar tment with otherw ise normal examin ation. Dictat ed By: Gabriel Aldrich MD Dictat ed Date/T loreto: 5:15 pm Review ed By: Gabriel Aldrich MD Signed By: Gabriel Aldrich MD Signed Date/T loreto: 5:15 pm Transc ribed By: SANTOS Transc ribed Date/T loreto: 5:15 pm Patien t Class: Outpat ient [facility] (Centralized Electronic Ordering - All Locations) Patient Can Go To The Location Of Their Choice, [address] 12/26/2016 10:36:34 09/04/20 15 09/04/2015 imagi ng/di agnos tic resul t No observ ation record ed. [facility] Orders [address] [facility] [address], [place], [address], 12/26/2016 10:36:34 09/05/20 16 09/05/2016 MAMMO , scree denita, bilat eral No observ ation record ed. [facility] Orders [address], [place], [address], 12/26/2016 10:36:34 09/21/20 18 09/18/2018 MAMMO , scree denita, digit al, bilat eral No observ ation record ed. [address], [address], 09/23/2018 13:56:18 Result Notes None recorded. Problems Name Problem SNOMED Code Status Onset Date Resolution Date Notes Provider Name and Address Organization Details Recorded Time Insomnia 888790702 Active 2013 IMPRESSI ON: MULTIPLE POSSIBLE UNDERLYI NG FACTORS LIKELY CONTRIBU TING. FIRST WILL FOCUS ON IMPLEMEN TING ADEQUATE BERT MGMT. SEE IF TRAZODON E HELPS.; RECORDED 04/07/20 14 1:07PM BY BOOM Shepard MD, OFFICE VISIT Gwendolyn skelton [facility] 8 13:21:34 Anemia 684821168 Completed 201306/06/2014 RECORDED 04/07/20 14 12:08PM BY BOOM Shepard MD, ANNOTATI ON/ADDEN DUM Not Available [facility] 4 05:13:21 Screenin g for malignan t neoplasm of breast Completed 201106/06/2014 RECORDED 06/10/20 12 12:54PM BY GREGORIA GOYAL MA, ANNOTATI ON/ADDEN DUM Not Available [facility] 4 05:13:21 Pain of breast 72537724 Active 2013 RECORDED 04/22/20 14 8:20AM BY LORENZA HORTA, HISTORIC AL SUMMARY Gwendolyn skelton [facility] 8 13:21:33 Screenin g for malignan t neoplasm of cervix Completed 201306/06/2014 RECORDED 01/05/20 14 11:08AM BY JORDANA DICKINSON MA, ANNOTATI ON/ADDEN DUM Not Available [facility] 4 05:13:22 History of depressi on 255866976 Completed 201106/06/2014 RECORDED 06/10/20 12 1:58PM BY BOOM Shepard MD, ANNOTATI ON/ADDEN DUM Not Available [facility] 4 05:13:22 Shoulder joint pain 852869027 Completed 201206/06/2014 RECORDED 01/07/20 13 4:04PM BY GREGORIA GOYAL MA, MANAATI ON/ADDEN DUM Not Available [facility] 4 05:13:22 Sleep apnea 22725687 Completed 200908/01/2017 DATE: 08/16/20 10; STORY: 9CM H2O Boom Gómez MD [address] [address], [place], [address] , [facility] 7 12:05:11 Urinary tract infectio us disease 18650966 Completed 201206/06/2014 RECORDED 01/07/20 13 4:04PM BY GREGORIA GOYAL MA, ANNOTATI ON/ADDEN DUM Not Available [facility] 4 05:13:22 Vitamin D deficien cy 71499047 Completed 201306/06/2014 RECORDED 04/07/20 14 12:08PM BY BOOM Shepard MD, ANNOTATI ON/ADDEN DUM Not Available [facility] 4 05:13:22 Anemia 303217062 Active 2013 RECORDED 03/08/20 14 2:57PM BY BOOM Shepard MD, LAB REQ Gwendolyn skelton [facility] 8 13:21:34 Arthropa thy 075957803 Active 2013 RECORDED 04/07/20 14 11:07AM BY JORDANA DICKINSON MA, OFFICE VISIT Gwendolyn skelton [facility] 8 13:21:34 Screenin g for malignan t neoplasm of breast Completed 201105/10/2014 RECORDED 06/10/20 12 12:54PM BY GREGORIA GOYAL MA, ANNOTATI ON/ADDEN DUM Not Available [facility] 4 13:28:11 Screenin g for malignan t neoplasm of cervix Completed 201305/10/2014 RECORDED 01/05/20 14 11:08AM BY JORDANA DICKINSON MA, ANNOTATI ON/ADDEN DUM Not Available [facility] 4 13:28:11 History of depressi on 522187896 Completed 201105/10/2014 RECORDED 06/10/20 12 1:58PM BY BOOM Shepard MD, ANNOTATI ON/ADDEN DUM Not Available [facility] 4 13:28:11 Dysthymi a 77354418 Active 2013 IMPRESSI ON: WELL CONTROLL ED, REPRTS RECENT FAILURE WITH TAPERING TRIAL. WILL CONTINUE CURRENT REGIMEN. ; RECORDED 04/07/20 14 11:07AM BY JORDANA DICKINSON MA, OFFICE VISIT Gwendolyn skelton [facility] 8 13:21:34 Nervous system and sense organ diseases 593353647 Active 2013 IMPRESSI ON: USING OTC ABORTIVE MEDS WITH GOOD RESULTS. SOUNDS WELL CONTROLL ED, NEVER HAD IMAGING. WILL SEE WHAT OLD PCP RECORDS SHOW.; RECORDED 04/07/20 14 11:07AM BY JORDANA DICKINSON MA, OFFICE VISIT Gwendolyn skelton [facility] 8 13:21:34 Migraine 31592438 Active 2013 IMPRESSI ON: PE AND HPI CONSISTE NT WITH ESCALATI ON OF MIGRAINE HEADACHE . INFECTIO US OR TRAUMATI C CAUSE UNLIKELY ; FURTHER WORKUP NOT WARRANTE D AT THIS TIME. PATIENT COUNSELL ED REGARDIN G AVOIDING MIGRAINE TRIGGERS AND PROVIDED WITH A HANDOUT. PATIENT TO CALL FOR WORSENIN G OR NEW SYMPTOMS . PATIENT TO SCHEDULE APPOINTM ENT TO DISCUSS MIGRAINE PROPHYLA XIS INITIATI ON IF DESIRED. ; RECORDED 04/07/20 14 11:07AM BY JORDANA DICKINSON MA, OFFICE VISIT Gwendolyn skelton [facility] 8 13:21:34 Obesity 238864197 Active 2013 RECORDED 04/07/20 14 12:10PM BY BOOM Shepard MD, OFFICE VISIT Gwendolyn skelton [facility] 8 13:21:33 Shoulder joint pain 964748846 Completed 201205/10/2014 RECORDED 01/07/20 13 4:04PM BY GREGORIA GOYAL MA, ANNOTATI ON/ADDEN DUM Not Available [facility] 4 13:28:12 Urinary tract infectio us disease 51744480 Completed 201205/10/2014 RECORDED 01/07/20 13 4:04PM BY GREGORIA GOYAL MA, ANNOTATI ON/ADDEN DUM Not Available [facility] 4 13:28:12 Vitamin D deficien cy 85048191 Active 2013 RECORDED 03/08/20 14 2:56PM BY BOOM Shepard MD, LAB REQ Gwendolyn Horta null, [facility] 8 13:21:33 Breast lump 19943038 Active Gwendolyn Horta null, [facility] 8 13:21:33 Conjunct ivitis 2407533 Completed 02/09/2015 Boom Gómez MD [address] [facility] [address], [place], [address] , [facility] 7 12:05:14 Swelling of ankle joint 109388566 Active Gwendolyn Horta null, [facility] 8 13:21:34 Peroneal tendinit is 54928424 Active Gwendolyn Horta null, [facility] 8 13:21:33 Body mass index 30+ - obesity 142376345 Active Gwendolyn Horta null, [facility] 8 13:21:34 Obstruct xiao sleep apnea syndrome 14129375 Active STORY: 9CM H2O Gwendolyn Horta null, [facility] 8 13:21:34 Fatigue 09114020 Active Gwendolyn Horta null, [facility] 8 13:21:34 Lateral epicondy litis 427620682 Active Gwendolyn Horta null, [facility] 8 13:21:34 Conjunct ivitis 7251129 Completed 08/01/2017 Boom Gómez MD [address] [facility] [address], [place], [address] , [facility] 7 12:05:14 Knee pain Active Gwendolyn Horta null [facility] 8 13:21:33 Multiple joint pain 97907482 Active Gwendolyn skelton [facility] 8 13:21:34 Backache 889431556 Active Gwendolyn skelton [facility] 8 13:21:33 Iron deficien cy anemia 01740844 Active 2016 Gwendolyn skelton [facility] 8 13:21:33 Major depressi on single episode, in partial remissio n 43825461 Active 2016 Gwendolyn skelton [facility] 8 13:21:34 Generali zed anxiety disorder 84752544 Active 2016 Gwendolyn skelton [facility] 8 13:21:34 Shoulder tendinit is Active 2017 Gwendolyn skelton [facility] 8 13:21:34 Degenera tive joint disease of hand 75234777 Active 2017 Gwendolyn skelton [facility] 8 13:21:33 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 Procedures Surgical History Date Name Laterality Status Provider Name and Address Organization Details Recorded Time 09/18/20 18 Most Recent Mammogram completed Esperanza West [facility] 09/23/2018 13:55:49 09/18/20 18 Mammogram screening completed Esperanzajorge West [facility] 09/23/2018 13:55:41 12/03/19 18 Orthopedic Surgery completed Boom Gómez MD [address] [address], [place], [address], [facility] 01/06/2018 16:50:23 07/29/20 13 Date of Last Pap Smear completed Gregoria Goyal MA [facility] 02/09/2015 13:48:56 Tubal Ligation completed Gregoria Goyal MA [facility] 02/09/2015 13:48:55 Dilation and Curettage completed Gregoria Goyal MA [facility] 02/09/2015 13:48:55 Caesarean Section completed Gregoria Goyal MA [facility] 02/09/2015 13:48:55 Endometrial cryoablation completed Boom Gómez MD [address] [facility] [address], [place], [address], [facility] 02/09/2015 14:02:58 FOBT completed Natalie dacosta [facility] 12/27/2016 14:48:05 Colonoscopy completed Natalie dacosta, [facility] 04/28/2017 09:56:10 Imaging Results Imaging Date Name Status LastModified by [facility] Details LastModified Time 04/12/2015 imaging[facility]diagno [facility] Information not available 06/05/2015 12:59:14 06/02/2015 knee routine 3 views left completed zuly [facility] (Centralized Electronic Ordering - All Locations) Patient Can Go To The Location Of Their Choice, [address] 12/26/2016 10:36:34 09/04/2015 imaging/diagno stic result completed [facility] Orders [address], [place], [address], 12/26/2016 10:36:34 09/05/2016 MAMMO, screening, bilateral completed [facility] Orders [address], [place], [address], 12/26/2016 10:36:34 09/18/2018 MAMMO, screening, digital, bilateral completed [address], [place], [address], 09/23/2018 13:56:18 Procedure Notes None recorded. Medical Equipment None Reported. Allergies Allergen ID Allergen Name Allergen Category Reaction Reaction Severity Criticality Documentation Date Start Date Code Code System Note Provider Name and Address Organization Details Recorded Time thimerosa l medicatio n itching Not available Not available 02/09/2015 55862 Rx[facility] [place] Carreno, [facility] 5 13:48:56 75963 neomycin medicatio n rash Not available Not available 04/28/2017 7299 [facility] [place] Kamara, [facility] 7 09:54:21 Medications Name Sig Start Date Stop Date Status Note LastModified by Organization Details LastModified Time fluoxetin e 40 mg capsule Take 1 capsule by mouth daily 08/01 completed Not Available Not Available Not Available cyclobenz aprine 10 mg tablet Take 1 tablet every day by oral route as needed. 12/26 completed Not Available Not Available Not Available Vitamin C 500 mg tablet Take 1 tablet every day by oral route for 90 days. 04/28 completed Not Available Not Available Not Available trazodone 50 mg tablet Take 1 tablet(s ) every day by oral route at bedtime for 30 days. 2013 active Not Available Not Available Not Avai lable ibuprofen 800 mg tablet 12/26 completed Not Available Not Available Not Available sumatript an 100 mg tablet Take 1 tablet every day by oral route as needed. active Not Available Not Available No t Available penicilli n V potassium 500 mg tablet 12/26 completed Not Available Not Available Not Available oxycodone -acetamin ophen 5 mg-325 mg tablet active Not Available Not Available Not Available Naphcon-A 0.025 %-0.3 % eye drops Apply 2 drops 3 times a day by ophthalm ic route as needed. 2013 active Not Available Not Available Not Avai lable ciproflox acin 0.3 % eye drops INSTILL 1 DROP INTO AFFECTED EYE(S) BY OPHTHALM IC ROUTE EVERY 2 HOURSWHI LE AWAKE FOR 2 DAYS THEN 1 DROP EVERY 4 HRS WHILE AWAKE FOR 5 DAYS 2013 active Not Available Not Available Not Avai lable amitripty line 10 mg tablet TAKE 1 TABLET BY MOUTH EVERY DAY AT BEDTIME active Not Available Not Available No t Available ferrous sulfate 325 mg (65 mg iron) tablet Take 1 tablet every day by oral route for 90 days. 04/28 completed Not Available Not Available Not Available fluoxetin e 20 mg tablet DAILY 07/10 completed RECORDED 07/14/20 12 10:20AM BY BOOM Shepard MD, MEDICATI ON [facility] CT[facility]AT[facility] N; Not Available Not Available Not Available Polytrim 10,000 unit-1 mg/mL eye drops INSTILL 1 DROP INTO AFFECTED EYE(S) BY OPHTHALM IC ROUTE EVERY 6 HOURS 10/19 completed Not Available Not Available Not Available fluoxetin e 20 mg capsule TAKE 1 CAPSULE DAILY 2017 active Not Available Not Available Not Avai lable naproxen 500 mg tablet TAKE 1 TABLET BY MOUTH TWICE DAILY WITH FOOD NEEDED active Not Available Not Available No t Available Vitamin D3 25 mcg (1,000 unit) capsule Take 1 capsule every day by oral route. 2016 active Not Available Not Available Not Avai lable Fish Oil DAILY 01/04 completed RECORDED 01/05/20 14 11:24AM BY JORDANA DICKINSON MA, OFFICE VISIT; Not Available Not Available Not Available multivita min 1 tab daily 12/26 completed Not Available Not Available Not Available lidocaine 5 % topical ointment Apply up to 3 gm (1 pump=1.5 gm) to focal site of pain 3-4 times daily active Not Available Not Available No t Available ergocalci ferol (vitamin D2) 50 mcg (2,000 unit) tablet DAILY 07/10 completed RECORDED 07/14/20 12 10:20AM BY BOOM Shepard MD, MEDICATI ON AUTO-MARCO CTIVATIO N; Not Available Not Available Not Available Vitals Date Recorded Body height Heart rate Oxygen saturation Oxygen saturation in Arterial blood by Pulse oximetry Body temperature Body weight Body mass index (BMI) Systolic blood pressure Diastolic blood pressure Provider Name and Address Organization Details Last Updated DateTime 7 160.02 cm 82 /min 98 % 98 % 98.7 [degF] 29139.0 3 g 31.7 kg/m2 122 mm[Hg] 72 mm[Hg] Gregoria Goyal MA [facility] 7 10:10:16 Date Recorded Body height Oxygen saturation Oxygen saturation in Arterial blood by Pulse oximetry Heart rate Body temperature Body mass index (BMI) Body weight Systolic blood pressure Diastolic blood pressure Provider Name and Address Organization Details Last Updated DateTime 7 160.02 cm 97 % 97 % 70 /min 98.6 [degF] 31 kg/m2 32738.6 6 g 116 mm[Hg] 76 mm[Hg] Natalie hewitt MA [facility] 7 09:57:49 Date Recorded Body height Body mass index (BMI) Body weight Body temperature Heart rate Oxygen saturation Oxygen saturation in Arterial blood by Pulse oximetry Systolic blood pressure Diastolic blood pressure Provider Name and Address Organization Details Last Updated DateTime 7 160.02 cm 30.6 kg/m2 42644.4 8 g 97.7 [degF] 97 /min 68 % 68 % 122 mm[Hg] 80 mm[Hg] Gregoria Goyal MA [facility] 7 11:46:04 Date Recorded Oxygen saturation Oxygen saturation in Arterial blood by Pulse oximetry Body weight Heart rate Body mass index (BMI) Body height Body temperature Systolic blood pressure Diastolic blood pressure Provider Name and Address Organization Details Last Updated DateTime 5 98 % 98 % 50552.3 6556 g 78 /min 33.3 kg/m2 160.02 cm 96.3 [degF] 120 mm[Hg] 80 mm[Hg] Gregoria Goyal MA [facility] 5 13:48:55 Date Recorded Body weight Oxygen saturation Oxygen saturation in Arterial blood by Pulse oximetry Body height Body mass index (BMI) Body temperature Heart rate Systolic blood pressure Diastolic blood pressure Provider Name and Address Organization Details Last Updated DateTime 5 36754.1 8082 g 98 % 98 % 160.02 cm 32.9 kg/m2 98.6 [degF] 78 /min 119 mm[Hg] 75 mm[Hg] Gregoria Goyal MA [facility] 5 15:06:35 Social History Question Answer Notes LastModified by Organizat ion Details LastModified Time Tobacco Smoking Status Never Smoker Not Available [facility] 08/29/2020 03:36:45 Do You Have An Advance Directive? Yes [id number] Information not available 08/29/2020 What Is Your Level Of Alcohol Consumption? Occasional [id number] Information not available 08/29/2020 Is Blood Transfusion Acceptable In An Emergency? Yes [id number] Information not available 08/29/2020 What Is Your Level Of Caffeine Consumption? Moderate Tea [id number] Information not available 08/29/2020 How Much Tobacco Do You Chew? None [id number] Information not available 08/29/2020 Are You Currently Employed? Yes [id number] Information not available 08/29/2020 What Type Of Diet Are You Following? REGULAR [id number] Information not available 08/29/2020 Which Illicit Or Recreational Drugs Have You Used? None [id number] Information not available 08/29/2020 What Is Your Occupation? [employer] [id number] Information not available 08/29/2020 Live Alone Or With Others? With Others (Hawk) And Daughter Information not available 04/28/2017 Do You Take Precautions To Prevent Distracted Driving? Yes Information not available 04/28/2017 How Often Do You Need To Have Someone Help You When You Read Instructions, Pamphlets, Or Other Written Material From Your Doctor Or Pharmacy? Never Information not available 04/28/2017 Have You Served In The ? No [email or web address] Information not available 04/28/2017 What Was The Date Of Your Most Recent Tobacco Screening? 08/01/2017 [id number] Information not available 08/29/2020 How Many Children Do You Have? 3 1 Son And 2 Dtrs [id number] Information not available 08/29/2020 Seat Belts Used Routinely Yes [email or web address] Information not available 02/09/2015 Are You Sexually Active? Yes [id number] Information not available 08/29/2020 Smoke Alarm In Home Yes Information not available 12/26/2016 At What Age Did You Start Smoking Tobacco? 1 [id number] Information not available 08/29/2020 Are You Passively Exposed To Smoke? Yes Information not available 02/09/2015 How Much Tobacco Do You Smoke? No [id number] Information not available 08/29/2020 Do You Use Sunscreen Routinely? Yes [id number] Information not available 08/29/2020 How Many Years Have You Smoked Tobacco? 0 [id number] Information not available 08/29/2020 Sex: Unknown Functional Status Question Answer Note LastModified by Organization D etails LastModified Time Are you able to care for yourself? Yes [id number] Information n ot available 08/29/2020 What is your exercise level? None [id number] Information not available 08/29/2020 Mental Status None recorded. Family History Relationship Description Onset Age of this Age Resolved Age Notes LastModified by Organization Details LastModified Time Sister Malignant tumor of breast 52 abolcun Not available 2014 15:07:12 Sister Malignant melanoma abolcun Not available 2014 15:07:12 Mother Parkinson's disease abolcun Not available 2014 15:07:12 Mother Basal cell carcinoma of skin abolcun Not available 2014 15:07:12 Mother Malignant tumor of lung awychowski Not available 12/26 10:34:38 Maternal Grandmother Diabetes mellitus abolcun Not available 2014 15:07:12 Father Alcoholic hepatitis abolcun Not available 2014 15:07:12 Father Amyotrophic lateral sclerosis awychowski Not available 08/01 12:06:07 Medical History No medical history recorded. Gynecological History Statement/Question Response Date of Last Pap Smear 07/29/2013 Date of Last Colonoscopy Most Recent Mammogram 09/18/2018 Most Recent Bone Density Obstetrics History GPAL:G 0 P 0 0 0 0 Immunizations Vaccine Type Date Status Note Provider Nam e and Address Organization Details Recorded Time Influenza, split virus, quadrivalent, PF 8 completed Gwend[facility]yn[facility]inal [facility], [facility] 07/09/2018 13:21:28 Tdap 8 completed Gwendolynminal skelton, [facility] 07/09/2018 13:21:28 Td (adult), 2 Lf tetanus toxoid, preservative free, adsorbed 1 completed Gwendolyn Horta costa [facility] 07/09/2018 13:21:28 Tdap 1 completed Gwendolyn Horta costa [facility] 07/09/2018 13:21:28 Past Encounters Encounter ID Performer Location Encounter Start Date Encounter Closed Date Diagnosis/Indication Diagnosis SNOMED-CT Code Diagnosis ICD10 Code Diagnosis Note [id number] [facility] [address] [facility] [place] [address] 06/10/2012 00:00:00 [id number] auto[facility]Comm erce [address] [facility] [address] [place] [address] 01/04/2014 00:00:00 [id number] [facility] erce [address] [facility] [place] [address] 04/07/2014 00:00:00 [id number] Gregoria Goyal MA Main Office [address] [address] 10/19/2014 11:22:56 10/19/2014 12:33:36 Conjunctivitis 1897071 Suspect what was initially a viral process was aggravated by a reaction to Polytrim drops. Will culture to rule out resistant organisms and pt advised to hold off on cipro drops unless discharge becomes more purulent or persistent . Will need ophtho eval if persistent /worse. [id number] Gregoria Goyal MA Main Office [address] [address] 12/13/2014 15:20:14 12/13/2014 16:16:58 Swelling of ankle joint 058376713 Etiology unclear. ? reactive arthropath y vs metabolic vs arthritic in nature. Will start with imaging/la bs and consider ortho vs rheum eval depending on result. Vitamin D deficiency 50525133 [id number] Dorina Henry Main Office [address] [address] [place] [address] 02/09/2015 13:32:24 02/09/2015 14:34:45 Adult health examination 202902028 Immunizati on status and screening utd except for colonoscop y. Regular dental and ophtho care advised as well as seatbelt and sunscreen use. Distracted driving discussed. Advance directives in place. Body mass index 30+ - obesity 528066454 Obstructiv e sleep apnea syndrome 31126634 Has machine but no supplies in over 1 yr and hence has not been complying with therapy. Will arrange for replacemen t supplies. Screening for malignant neoplasm of colon 078716197 Due for screening will arrange. Fatigue 79565736 Potenti all y multifacto rial but most obvious explainati on is untreated BERT. Will reassess after resuming CPAP. [id number] Gregoria Goyal MA Main Office [address] [facility] [address] [place] [address] 06/02/2015 14:37:52 06/02/2015 15:54:39 Lateral epicondylitis 319739040 Refer for PT inb/worse. Conjunctivitis 4017798 N ot typical for infectious process and no acute symptoms. Pt will schedule ophtho appointmen t edgardo. Knee pain 84755774 Image looking for AO or acute changes. Refer to ortho if persistent /worse. Multiple joint pain 94995230 Odd constellat ion of symptoms. Will screen for autoimmune MCTD. Backache 225037519 [id number] Boom Gómez MD Main Office [address] [facility] [address] [place] [address] 12/26/2016 09:43:54 12/26/2016 10:47:36 Major depressive disorder 806971453 F32.9 Symptoms are severe and limiting. Will try medication in addition to therapy. Tolerated fluoxetine in the distant past. Pt advised of common/ser ious potential medication side effects and to call if noted. Will titrate med as tolerated to goal symptom control. Anhedonia 48962921 R45.8 4 Likely secondary to depression . Will screen for possible metabolic contributo rs. Abnormal weight loss 267 190752 R63.4 Vitamin D deficiency 347 17647 E55.9 [id number] Dougie Lazaro MD Main Office [address] [facility] [address] [place] [address] 04/28/2017 09:42:08 04/28/2017 10:46:57 Migraine 13497469 G43.909 Insomnia 897370002 G47.0 0 Dysthymia 44851986 F34.1 [id number] Boom Gómez MD Main Office [address] [facility] [address] [facility] [place] [address] 08/01/2017 11:26:11 08/01/2017 12:10:56 Multiple joint pain 45056157 M25.50 Some symptoms seem osteoarthr itic and possible that vitamin D deficiency is also a factor. See if NSAID helps with both this and her RILEY. Vitamin D deficiency 347 38341 E55.9 Advised to resume supplement edgardo. Migraine 59030294 G43.90 9 Current regimen working well. Will contiue as is with addition of NSAID. Major depr ession single episode, in partial remission 41058781 F32.4 Stable on current dose. Following with therapist. Will continue as is. Generalize d anxiety disorder 96778498 F41.1 Health Concerns Section Related Observation LastModified by Organization Detai ls LastModified Time None Recorded Concern Status LastModified by Organization Details LastModified Time None Recorded Advance Directives Directive Y: Payers Encounter Date Sequence Insurance Name Policy Number Policy Mccrary Covered Member ID Mccrary Member ID Guarantor Name 02/09/2015 1 [facility] [id number] Hawk Olivo [id number] Hawk Olivo 06/02/2015 1 [facility] [id number] Hawk Olivo [id number] Hawk Olivo 12/26/2016 1 [facility] [id number] Hawk Odell Olivo [id number] Hawk Olivo 04/28/2017 1 [facility] [employer] [facility] BLUE ([facility]) [id number] Hawk C Olivo [id number] Hawk Olivo 08/01/2017 1 [facility] [employer] [facility] BLUE (PPO) [id number] Hawk C Olivo [id number] Hawk Olivo Notes Date Note Type Note Provider Name and Address Organization Details Recorded Time 12/26/2016 text/html Anxiety/Depressi onRepo rted bypatient.Quality:symp toms worse in the evening;symptoms worse during the day;mood worse;increased anxiety Severity:denies suicidal ideations; able to maintain relationships;interfer ence with work Duration:symptoms lasting over 2 weeks Context:major life stressors;family problems;trouble at work;bereavement Associated Symptoms:denies homicidal ideationsNotes:Receive d call from pt's therapist who advised that medication is indicated for her degree of symptoms. Boom Gómez MD [address], [address], [facility] 12/31/2016 22:03:01 04/28/2017 text/html HeadacheReported bypatient.Notes:Notes that she is having increase in headache frequency over the past month. However, she has had a long history of migraine. Has been using Aleve (only 2 doses). Notes that has previously use Imitrex with good results. Not using because of drug interaction with SSRI. Here for management of worsening headaches. Increased fluoxetine approx 1 month ago and notes worsening symptoms. Dougie Lazaro MD [address] [address], [place], [address], [facility] 04/28/2017 10:49:05 08/01/2017 text/html HeadacheReported bypatient.Location:[facility]ital Quality:similar to previous headaches;piercing/sta bbing (lancinating) Onset/Timing:better Associated Symptoms:vomiting;phot ophobia;tearing/watery eyesNotes:Imitrex and TCA seem to be helping.Musculoskeleta l PainReported bypatient.Location:pennie ateral arm; left wrist Quality:aching Severity:worsening Duration:present for 6-12 months Timing:intermittentNot es:Has known vitamin D deficiency but is not taking supplement. Boom Gómez MD [address] [address], [place], [address], [facility] 08/01/2017 12:19:09 OBGyn Episode No OBEpisode recorded.
== END 2025-01-04 14:48 | disposition home or self-care (01) ==
PROVIDERS: PCP Internal Medicine; Visit Provider Physician Assistant
DX: J44.1 Chronic obstructive pulmonary disease with (acute) exacerbation (principal); J06.9 Acute upper respiratory infection, unspecified

== ENCOUNTER 2025-01-04 13:37 | Outpatient (REF) | payer BC, SELFPAY ==
[2025-01-04 18:21] LABS: Influenza A PCR NEGATIVE (Negative); Influenza B PCR NEGATIVE (Negative); Resp Syncy Virus RNA Qual PCR NEGATIVE (Negative); SARS COV2 PCR INHOUSE POSITIVE (Negative)
== END 2025-01-04 13:38 | disposition home or self-care (01) ==
LOC: HO.LNP 13:37
PROVIDERS: PCP Internal Medicine; Visit Provider Physician Assistant
DX: J44.1 Chronic obstructive pulmonary disease with (acute) exacerbation (principal); J22 Unspecified acute lower respiratory infection
CPT/HCPCS: 0241U

== ENCOUNTER 2025-02-18 10:01 | Outpatient (AMB) | payer BC, SELFPAY ==
--- OUTSIDE RECORDS SUMMARY | 2025-02-18 10:28 | XMS_ITS | Data Portability ---
Author Organization [facility], Main Office Address [address] [facility] [address] [place] [address] Care Team Providers Care Claims Vice President Name Role Phone TODDBOOM MITCHELL Primary Care Provider [phone] VALENTE ORTEGA OTHER KEVEN MEZA [employer] Commander [facility] Orthopedic Surgeon LORENZO BUNCH Orthopedic Surgeon DAVID ACOSTA OTHER Assessment Encounter Date Assessment [...] auto diff 2016 017 [facility], [address], [place], [address], 7 14:24:20 TSH, serum or plasm a 2016 017 [facility], [address], [place], [address], 7 14:35:26 vitam in D, 25-hy droxy , total , serum 2016 017 [facility], [address] [facility], [address], [address], 7 23:40:51 urina lysis , compl ete [...] cance r scree denita 2014 015 abolcun [facility], [address] [place], [address], 5 08:24:58 Surgeries None recor ded. Imaging x-ray , knee, 3 view - for eval of left knee pain, rule out fract ure and arthr itis 2014 015 abolcun Not available 5 15:34:22 Medication Orders Vitam in D3 25 mcg (1,00 0 unit) capsu le 2016 017 zuly [facility], [address] [place], [address], 7 12:07:56 napro xen 500 mg table t 2016 017 INTERFACE [facility], [address], [place], [id number], 7 12:08:03 fluox etine 20 mg capsu le 2016 017 INTERFACE [facility], [address], [place], [id number], 7 10:40:09 amitr iptyl ine 10 mg table t 2016 017 INTERFACE [facility], [address], [place], [id number], 7 10:40:08 sumat ripta n 100 mg table t 2016 017 INTERFACE [facility], [address] [place] [address], [address], 7 10:40:05 fluox etine 20 mg capsu le 2016 017 [facility], [address], [place], [id number], 7 11:43:27 cyclo benza davon 10 mg table t 2014 015 abolcun [facility], [address], [place], [id number], 7 10:06:32 napro xen 500 mg table t 2014 015 abolcun [facility], [address], [place], [id number], 7 10:06:41 Patient Targets Encounter Date Encounter Id Patient Goals Patient Target Last Modified By Organization Details Last Modified Time 02/09/2015 [id number] skilled nursing goal of Excess Body Weight Loss % [...] By Organization Details Last Modified Time 02/09/2015 [id number] sleep apnea: care instructions awychowski Not available [...] summary. awychowski Not available 02/09/2015 14:09:15 06/02/2015 [id number] tennis elbow: care instructions awychowski Not available 06/05/2015 13:02:41 pinkeye: care instructions awychowski Not available 06/05/2015 13:02:41 back pain: care instructions awychowski Not available 06/05/2015 13:02:41 meniscus tear: exercises awychowski Not available 06/05/2015 13:02:41 knee pain or injury: care instructions awychowski Not available 06/05/2015 13:02:41 12/26/2016 [id number] abnormal weight loss: care instructions Not available 12/26/2016 12:56:55 Preventing Depression From Coming Back: Care Instructions Not available 12/26/2016 12:56:55 04/28/2017 [id number] depression treatment: care instructions Not available 04/28/2017 11:09:37 insomnia: care instructions Not available 04/28/2017 11:09:36 08/01/2017 [id number] anxiety disorder: care instructions [email or web address] Not available 08/01/2017 12:22:11 Reason for Referral Funeral Planning Counselor/dietitian Refer ral for Body mass index 30+ [...] CIENT IN VITAM IN D. Refer ence: [facility] Data Brief : No.[id number] December: Vitam in [...] 5:15 pm Patien t Class: Outpat ient [facility] (Centralized Electronic Ordering - All Locations) Patient Can Go To The Location Of Their Choice, [address] 12/26/2016 10:36:34 09/04/20 15 09/04/2015 imagi ng/di agnos tic resul t No observ ation record ed. [facility] Orders [address] [facility] [address], [place], [address], 12/26/2016 10:36:34 09/05/20 16 09/05/2016 MAMMO , scree denita, bilat eral No observ ation record ed. [facility] Orders [address] [facility] [address], [place], [address], 12/26/2016 10:36:34 09/21/20 18 09/18/2018 MAMMO , scree denita, digit al, bilat eral No observ ation record ed. [address], [address], 09/23/2018 13:56:18 Result Notes None recorded. Problems Name Problem SNOMED Code Status Onset Date Resolution Date Notes Provider Name and Address Organization Details Recorded Time Insomnia 012673789 Active 2013 IMPRESSI ON: MULTIPLE POSSIBLE UNDERLYI NG FACTORS LIKELY CONTRIBU TING. FIRST WILL FOCUS ON IMPLEMEN TING ADEQUATE BERT MGMT. SEE IF TRAZODON E HELPS.; RECORDED 04/07/20 14 1:07PM BY BOOM Shepard MD, OFFICE VISIT Gwendolyn skelton [facility] 8 13:21:34 Anemia 025875312 Completed 201306/06/2014 RECORDED 04/07/20 14 12:08PM BY BOOM Shepard MD, ANNOTATI ON/ADDEN DUM Not Available [facility] 4 05:13:21 Screenin g for malignan t neoplasm of breast Completed 201106/06/2014 RECORDED 06/10/20 12 12:54PM BY GREGORIA GOYAL MA, ANNOTATI ON/ADDEN DUM Not Available [facility] 4 05:13:21 Pain of breast 98928711 Active 2013 RECORDED 04/22/20 14 8:20AM BY LORENZA HORTA, HISTORIC AL SUMMARY Gwendolyn skelton [facility] 8 13:21:33 Screenin g for malignan t neoplasm of cervix Completed 201306/06/2014 RECORDED 01/05/20 14 11:08AM BY JORDANA DICKINSON MA, ANNOTATI ON/ADDEN DUM Not Available [facility] 4 05:13:22 History of depressi on 659322154 Completed 201106/06/2014 RECORDED 06/10/20 12 1:58PM BY BOOM Shepard MD, ANNOTATI ON/ADDEN DUM Not Available [facility] 4 05:13:22 Shoulder joint pain 344577436 Completed 201206/06/2014 RECORDED 01/07/20 13 4:04PM BY GREGORIA GOYAL MA, MANAATI ON/ADDEN DUM Not Available [facility] 4 05:13:22 Sleep apnea 08674616 Completed 200908/01/2017 DATE: 08/16/20 10; STORY: 9CM H2O Boom Gómez MD [address] [address], [place], [address] , [facility] 7 12:05:11 Urinary tract infectio us disease 25246130 Completed 201206/06/2014 RECORDED 01/07/20 13 4:04PM BY GREGORIA GOYAL MA, ANNOTATI ON/ADDEN DUM Not Available [facility] 4 05:13:22 Vitamin D deficien cy 72964218 Completed 201306/06/2014 RECORDED 04/07/20 14 12:08PM BY BOOM Shepard MD, ANNOTATI ON/ADDEN DUM Not Available [facility] 4 05:13:22 Anemia 863126961 Active 2013 RECORDED 03/08/20 14 2:57PM BY BOOM Shepard MD, LAB REQ Gwendolyn skelton [facility] 8 13:21:34 Arthropa thy 841591574 Active 2013 RECORDED 04/07/20 14 11:07AM BY JORDANA DICKINSON MA, OFFICE VISIT Gwendolyn skelton [facility] 8 13:21:34 Screenin g for malignan t neoplasm of breast Completed 201105/10/2014 RECORDED 06/10/20 12 12:54PM BY GREGORIA GOYAL MA, ANNOTATI ON/ADDEN DUM Not Available [facility] 4 13:28:11 Screenin g for malignan t neoplasm of cervix Completed 201305/10/2014 RECORDED 01/05/20 14 11:08AM BY JORDANA DICKINSON MA, ANNOTATI ON/ADDEN DUM Not Available [facility] 4 13:28:11 History of depressi on 590583676 Completed 201105/10/2014 RECORDED 06/10/20 12 1:58PM BY BOOM Shepard MD, ANNOTATI ON/ADDEN DUM Not Available [facility] 4 13:28:11 Dysthymi a 44430094 Active 2013 IMPRESSI ON: WELL CONTROLL ED, REPRTS RECENT FAILURE WITH TAPERING TRIAL. WILL CONTINUE CURRENT REGIMEN. ; RECORDED 04/07/20 14 11:07AM BY JORDANA DICKINSON MA, OFFICE VISIT Gwendolyn skelton [facility] 8 13:21:34 Nervous system and sense organ diseases 213130323 Active 2013 IMPRESSI ON: USING OTC ABORTIVE MEDS WITH GOOD RESULTS. SOUNDS WELL CONTROLL ED, NEVER HAD IMAGING. WILL SEE WHAT OLD PCP RECORDS SHOW.; RECORDED 04/07/20 14 11:07AM BY JORDANA DICKINSON MA, OFFICE VISIT Gwendolyn skelton [facility] 8 13:21:34 Migraine 12879400 Active 2013 IMPRESSI ON: PE AND HPI [...] JORDANA DICKINSON MA, OFFICE VISIT Gwendolyn skelton [facility] 8 13:21:34 Obesity 968116380 Active 2013 RECORDED 04/07/20 14 12:10PM BY BOOM Shepard MD, OFFICE VISIT Gwendolyn skelton [facility] 8 13:21:33 Shoulder joint pain 453504578 Completed 201205/10/2014 RECORDED 01/07/20 13 4:04PM BY GREGORIA GOYAL MA, ANNOTATI ON/ADDEN DUM Not Available [facility] 4 13:28:12 Urinary tract infectio us disease 38169520 Completed 201205/10/2014 RECORDED 01/07/20 13 4:04PM BY GREGORIA GOYAL MA, ANNOTATI ON/ADDEN DUM Not Available [facility] 4 13:28:12 Vitamin D deficien cy 47940035 Active 2013 RECORDED 03/08/20 14 2:56PM BY BOOM Shepard MD, LAB REQ Gwendolyn Horta null, [facility] 8 13:21:33 Breast lump 88650431 Active Gwendolyn Horta null, [facility] 8 13:21:33 Conjunct ivitis 8586602 Completed 02/09/2015 Boom Gómez MD [address] [facility] [address], [place], [address] , [facility] 7 12:05:14 Swelling of ankle joint 992533723 Active Gwendolyn Horta null, [facility] 8 13:21:34 Peroneal tendinit is 90031674 Active Gwendolyn Horta null, [facility] 8 13:21:33 Body mass index 30+ - obesity 551471995 Active Gwendolyn Horta null, [facility] 8 13:21:34 Obstruct xiao sleep apnea syndrome 05601980 Active STORY: 9CM H2O Gwendolyn Horta null, [facility] 8 13:21:34 Fatigue 86861845 Active Gwendolyn Horta null, [facility] 8 13:21:34 Lateral epicondy litis 405361331 Active Gwendolyn Horta null, [facility] 8 13:21:34 Conjunct ivitis 2215704 Completed 08/01/2017 Boom Gómez MD [address] [facility] [address], [place], [address] , [facility] 7 12:05:14 Knee pain Active Gwendolyn Horta null [facility] 8 13:21:33 Multiple joint pain 03949716 Active Gwendolyn skelton [facility] 8 13:21:34 Backache 797445387 Active Gwendolyn skelton [facility] 8 13:21:33 Iron deficien cy anemia 77629018 Active 2016 Gwendolyn skelton [facility] 8 13:21:33 Major depressi on single episode, in partial remissio n 45948774 Active 2016 Gwendolyn skelton [facility] 8 13:21:34 Generali zed anxiety disorder 30666767 Active 2016 Gwendolyn skelton [facility] 8 13:21:34 Shoulder tendinit is Active 2017 Gwendolyn skelton [facility] 8 13:21:34 Degenera tive joint disease of hand 89812631 Active 2017 Gwendolyn skelton [facility] 8 13:21:33 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 Procedures Surgical History Date Name Laterality Status Provider Name and Address Organization Details Recorded Time 09/18/20 18 Most Recent Mammogram completed Esperanza [facility] 09/23/2018 13:55:49 09/18/20 18 Mammogram screening completed Es[facility]anzajorge [facility] 09/23/2018 13:55:41 12/03/19 18 Orthopedic Surgery completed Boom Gómez MD [address] [address], [place], [address], [facility] 01/06/2018 16:50:23 07/29/20 13 Date of Last Pap Smear completed Gregoria Goyal MA [facility] 02/09/2015 13:48:56 Tubal Ligation completed Gregoria Goyal MA [facility] 02/09/2015 13:48:55 Dilation and Curettage completed Gregoria Goyal MA [facility] 02/09/2015 13:48:55 Caesarean Section completed Gregoria Goyal MA [facility] 02/09/2015 13:48:55 Endometrial cryoablation completed Boom Gómez MD [address] [facility] [address], [place], [address], [facility] 02/09/2015 14:02:58 FOBT completed Natalie dacosta [facility] 12/27/2016 14:48:05 Colonoscopy completed Natalie dacosta, [facility] 04/28/2017 09:56:10 Imaging Results Imaging Date Name Status LastModified by [facility] Details LastModified Time 04/12/2015 imaging[facility]diagno [facility]ic result [facility] Information not available 06/05/2015 12:59:14 06/02/2015 knee routine 3 views left completed zuly [facility] (Centralized Electronic Ordering - All Locations) Patient Can Go To The Location Of Their Choice, [address] 12/26/2016 10:36:34 09/04/2015 imaging/diagno stic result completed [facility] Orders [address], [place], [address], 12/26/2016 10:36:34 09/05/2016 MAMMO, screening, bilateral completed [facility] Orders [address], [place], [address], 12/26/2016 10:36:34 09/18/2018 MAMMO, screening, digital, bilateral completed [address], [place], [address], 09/23/2018 13:56:18 Procedure Notes None recorded. Medical Equipment None Reported. Allergies Allergen ID Allergen Name Allergen Category Reaction Reaction Severity Criticality Documentation Date Start Date Code Code System Note Provider Name and Address Organization Details Recorded Time thimerosa l medicatio n itching Not available Not available 02/09/2015 70423 RxNorm [place] Carreno, [facility] 5 13:48:56 35777 neomycin medicatio n rash Not available Not available 04/28/2017 7299 Rx[facility] [place] Kamara, [facility] 7 09:54:21 Medications Name Sig Start [...] /min 98 % 98 % 98.7 [degF] 43648.0 3 g 31.7 kg/m2 122 mm[Hg] 72 mm[Hg] Gregoria Goyal MA [facility] 7 10:10:16 Date Recorded Body height Oxygen saturation Oxygen saturation in Arterial blood by Pulse oximetry Heart rate Body temperature Body mass index (BMI) Body weight Systolic blood pressure Diastolic blood pressure Provider Name and Address Organization Details Last Updated DateTime 7 160.02 cm 97 % 97 % 70 /min 98.6 [degF] 31 kg/m2 30365.6 6 g 116 mm[Hg] 76 mm[Hg] Natalie hewitt MA [facility] 7 09:57:49 Date Recorded Body height Body mass index (BMI) Body weight Body temperature Heart rate Oxygen saturation Oxygen saturation in Arterial blood by Pulse oximetry Systolic blood pressure Diastolic blood pressure Provider Name and Address Organization Details Last Updated DateTime 7 160.02 cm 30.6 kg/m2 85173.4 8 g 97.7 [degF] 97 /min 68 % 68 % 122 mm[Hg] 80 mm[Hg] Gregoria Goyal MA [facility] 7 11:46:04 Date Recorded Oxygen saturation Oxygen saturation in Arterial blood by Pulse oximetry Body weight Heart rate Body mass index (BMI) Body height Body temperature Systolic blood pressure Diastolic blood pressure Provider Name and Address Organization Details Last Updated DateTime 5 98 % 98 % 44643.3 6556 g 78 /min 33.3 kg/m2 160.02 cm 96.3 [degF] 120 mm[Hg] 80 mm[Hg] Gregoria Goyal MA [facility] 5 13:48:55 Date Recorded Body weight Oxygen saturation Oxygen saturation in Arterial blood by Pulse oximetry Body height Body mass index (BMI) Body temperature Heart rate Systolic blood pressure Diastolic blood pressure Provider Name and Address Organization Details Last Updated DateTime 5 46833.1 8082 g 98 % 98 % 160.02 cm 32.9 kg/m2 98.6 [degF] 78 /min 119 mm[Hg] 75 mm[Hg] Gregoria Goyal MA [facility] 5 15:06:35 Social History Question Answer Notes LastModified by Organizat ion Details LastModified Time Tobacco Smoking Status Never Smoker Not Available [facility] 08/29/2020 03:36:45 Do You Have An Advance Directive? Yes [id number] Information not available 08/29/2020 What Is Your Level Of Alcohol Consumption? Occasional [id number] Information not available 08/29/2020 Is Blood Transfusion Acceptable In An Emergency? Yes [id number] Information not available 08/29/2020 What Is Your Level Of Caffeine Consumption? Moderate Tea [id number] Information not available 08/29/2020 How Much Tobacco Do You Chew? None [id number] Information not available 08/29/2020 Are You Currently Employed? Yes [id number] Information not available 08/29/2020 What Type Of Diet Are You Following? REGULAR [id number] Information not available 08/29/2020 Which Illicit Or Recreational Drugs Have You Used? None [id number] Information not available 08/29/2020 What Is Your Occupation? [employer] [id number] Information not available 08/29/2020 Live Alone Or [...] Have You Served In The ? No bsoliEataly Netos Information not available 04/28/2017 What Was The Date Of Your Most Recent Tobacco Screening? 08/01/2017 [id number] Information not available 08/29/2020 How Many Children Do You Have? 3 1 Son And 2 Dtrs [id number] Information not available 08/29/2020 Seat Belts Used Routinely Yes awychowski Information not available 02/09/2015 Are You Sexually Active? Yes [id number] Information not available 08/29/2020 Smoke Alarm In Home Yes Information not available 12/26/2016 At What Age Did You Start Smoking Tobacco? 1 [id number] Information not available 08/29/2020 Are You Passively Exposed To Smoke? Yes Information not available 02/09/2015 How Much Tobacco Do You Smoke? No [id number] Information not available 08/29/2020 Do You Use Sunscreen Routinely? Yes [id number] Information not available 08/29/2020 How Many Years Have You Smoked Tobacco? 0 [id number] Information not available 08/29/2020 Sex: Unknown Functional Status Question Answer Note LastModified by Organization D etails LastModified Time Are you able to care for yourself? Yes [id number] Information n ot available 08/29/2020 What is your exercise level? None [id number] Information not available 08/29/2020 Mental Status None [...] virus, quadrivalent, PF 8 completed [facility]2018 13:21:28 Tdap 8 completed Gwendolynminal skelton, [facility] 07/09/2018 13:21:28 Td (adult), 2 Lf tetanus toxoid, preservative free, adsorbed 1 completed Gwendolyn Horta costa [facility] 07/09/2018 13:21:28 Tdap 1 completed Gwendolyn Horta costa [facility] 07/09/2018 13:21:28 Past Encounters Encounter ID Performer Location Encounter Start Date Encounter Closed Date Diagnosis/Indication Diagnosis SNOMED-CT Code Diagnosis ICD10 Code Diagnosis Note [id number] autoEComm erce [address] [facility] [place] [address] 06/10/2012 00:00:00 [id number] autoEComm erce [address] [facility] [address] [place] [address] 01/04/2014 00:00:00 [id number] autoEComm erce [address] [facility], [address] [place] [address] 04/07/2014 00:00:00 [id number] Gregoria Goyal MA Main Office [address] [address] 10/19/2014 11:22:56 10/19/2014 12:33:36 Conjunctivitis 5486654 Suspect what was initially a viral process was aggravated by a reaction to Polytrim drops. Will culture to rule out resistant organisms and pt advised to hold off on cipro drops unless discharge becomes more purulent or persistent . Will need ophtho eval if persistent /worse. [id number] Gregoria Goyal MA Main Office [address] [address] 12/13/2014 15:20:14 12/13/2014 16:16:58 Swelling of ankle joint 831523531 Etiology unclear. ? reactive arthropath y vs metabolic vs arthritic in nature. Will start with imaging/la bs and consider ortho vs rheum eval depending on result. Vitamin D deficiency 85059653 [id number] Dorina Henry Main Office [address] [address] [place] [address] 02/09/2015 13:32:24 02/09/2015 14:34:45 Adult health examination 434539912 Immunizati on status and screening utd except for colonoscop y. Regular dental and ophtho care advised as well as seatbelt and sunscreen use. Distracted driving discussed. Advance directives in place. Body mass index 30+ - obesity 515734122 Obstructiv e sleep apnea syndrome 41726301 Has machine but no supplies in over 1 yr and hence has not been complying with therapy. Will arrange for replacemen t supplies. Screening for malignant neoplasm of colon 767015019 Due for screening will arrange. Fatigue 42572794 Potenti all y multifacto rial but most obvious explainati on is untreated BERT. Will reassess after resuming CPAP. [id number] Gregoria Goyal MA Main Office [address] [facility] [address] [place] [address] 06/02/2015 14:37:52 06/02/2015 15:54:39 Lateral epicondylitis 432570347 Refer for PT inb/worse. Conjunctivitis 3163768 N ot typical for infectious process and no acute symptoms. Pt will schedule ophtho appointmen t edgardo. Knee pain 65506292 Image looking for AO or acute changes. Refer to ortho if persistent /worse. Multiple joint pain 82808586 Odd constellat ion of symptoms. Will screen for autoimmune MCTD. Backache 407068141 [id number] Boom Gómez MD Main Office [address] [facility] [address] [place] [address] 12/26/2016 09:43:54 12/26/2016 10:47:36 Major depressive disorder 903657889 F32.9 Symptoms are severe and limiting. Will try medication in addition to therapy. Tolerated fluoxetine in the distant past. Pt advised of common/ser ious potential medication side effects and to call if noted. Will titrate med as tolerated to goal symptom control. Anhedonia 27104253 R45.8 4 Likely secondary to depression . Will screen for possible metabolic contributo rs. Abnormal weight loss 267 859754 R63.4 Vitamin D deficiency 347 87761 E55.9 [id number] Dougie Lazaro MD Main Office [address] [facility] [address] [place] [address] 04/28/2017 09:42:08 04/28/2017 10:46:57 Migraine 30780937 G43.909 Insomnia 954842113 G47.0 0 Dysthymia 65068825 F34.1 [id number] Boom Gómez MD Main Office [address] [facility] [address] [facility] [place] [address] 08/01/2017 11:26:11 08/01/2017 12:10:56 Multiple joint pain 51800753 M25.50 Some symptoms seem osteoarthr itic and possible that vitamin D deficiency is also a factor. See if NSAID helps with both this and her RILEY. Vitamin D deficiency 347 12298 E55.9 Advised to resume supplement edgardo. Migraine 01027884 G43.90 9 Current regimen working well. Will contiue as is with addition of NSAID. Major depr ession single episode, in partial remission 95699590 F32.4 Stable on current dose. Following with therapist. Will continue as is. Generalize d anxiety disorder 18300116 F41.1 Health Concerns Section Related Observation LastModified by Organization Detai ls LastModified Time None Recorded Concern Status LastModified by Organization Details LastModified Time None Recorded Advance Directives Directive Y: Payers Encounter Date Sequence Insurance Name Policy Number Policy Mccrary Covered Member ID Mccrary Member ID Guarantor Name 02/09/2015 1 [facility] [id number] Hawk Olivo [id number] Hawk Olivo 06/02/2015 1 [facility] [id number] Hawk Olivo [id number] Hawk Olivo 12/26/[address] [facility] [place] [id number] Hawk Odell Olivo [id number] Hawk Olivo 04/28/[address] [facility] [employer] [facility] BLUE ([place]) [id number] Hawk C Olivo [id number] Hawk Olivo 08/01/[address] [facility] [employer] [facility] BLUE ([place]) [id number] Hawk C Olivo [id number] Hawk Olivo Notes Date Note Type Note [...] degree of symptoms. Boom Gómez MD [address], [address], [facility] 12/31/2016 22:03:01 04/28/2017 [...] notes worsening symptoms. Dougie Lazaro MD [address] [address], [place], [address], [facility] 04/28/2017 10:49:05 08/01/2017 text/html HeadacheReported bypatient.Location:occ ipital Quality:similar to previous headaches;piercing/sta bbing (lancinating) Onset/Timing:better Associated Symptoms:vomiting;phot ophobia;tearing/watery eyesNotes:Imitrex and TCA seem to be helping.Musculoskeleta l PainReported bypatient.Location:pennie ateral arm; left wrist Quality:aching Severity:worsening Duration:present for 6-12 months Timing:intermittentNot es:Has known vitamin D deficiency but is not taking supplement. Boom Gómez MD [id number] [id number], [place], [id number], [facility] 08/01/2017 12:19:09 OBGyn Episode No OBEpisode recorded.
[2025-02-18 10:58] VITALS: BP 132/80; PULSE 70; TEMP 36.7; O2SAT 97; BMI 30.6
--- NOTE | 2025-02-18 10:58 | AM.OFFWIN_ITS ---
Intake Vital Signs 02/18/25 10:58 Height 5 ft 3 in Weight 173 lb BMI 30.6 BP 132/80 Blood Pressure Location Rt brachial Position Sitting Pulse 70 Pulse Source Pulse Oximeter Temp 98.1 F Temp Source Oral Pulse Oximetry (%) 97 Oxygen Delivery Method Room Air Intake Visit Reasons: EP [place] eye? Intake Note: Patient here for pink eye of left eye that started yesterday. Patient Tobacco Use Status: Never used Tobacco Allergies adhesive tape [ADHESIVE TAPE] Allergy (Unknown, Verified 02/18/25 11:00) RASH neomycin Allergy (Unknown, Verified 02/18/25 11:00) rash thimerosal Allergy (Unknown, Verified 02/18/25 11:00) itching Iodinated Contrast Media [Contrast Dye] Adverse Reaction (Verified 02/18/25 11:00) Itching Do you need a note to return to daycare/school/sports/work: No HPI HPI Comments History of Present Illness Details History of Present Illness - The patient is a 60-year-old female pr esenting with issue in her right eye. - She began experiencing pressure/uncomf ortableness in the right eye the night before this visit. - The sensation is described as spikes w ithout accompanying drainage or foreign body sensation. - eye has not been crusted shut when she wakes up in the AM - Symptoms include a headache from the e ye pressure but no visual disturbances or fever. - No previous episodes or diagnosis of c onjunctivitis with this presenting symptom of pressure/uncomfortable - question of possible accidental injury to right eye - There has been no ophthalmological jared luation, with only prior consultations for corrective lenses. Physical Exam General: Cooperative, healthy appearing, comfortable, no acute distress and well developed Orientation: Patient oriented x3 Limitations: No limitations Head: Normal to inspection Ears: Hearing grossly normal bilaterally Nose: Normal External nose present Face and sinus: Normal facial exam Eyes: Right eye with 0.5cm oblong corneal abrasion at 12 o'clock Neck: Normal visual inspection and Yes full ROM Respiratory: Normal respiratory effort and able to speak in complete sentences. Skin: No rashes or lesions noted Neuro: Patient oriented x3 Extremities: Normal to inspection PENDING SALE TO [facility] Medical History (Updated 02/18/25 @ 11:21 by Oanh Jaimes PA-C) History of rib fracture Hyperlipidemia Essential hypertension Mixed anxiety and depressive disorder Annual visit for general adult medical examination with abnormal findings Vitamin D deficiency Increased risk of breast cancer Obesity History of anemia Depression COPD (chronic obstructive pulmonary disease) BERT (obstructive sleep apnea) Surgical History History of hand surgery Hx of section History of endometrial ablation No pertinent past surgical history Family History Father Lung cancer Mother Lung cancer Sister Melanoma Breast cancer, Onset Age: 52 Maternal Aunt Breast cancer Brain cancer Paternal Grandfather Lung cancer Breast cancer Maternal Uncle Lung cancer Maternal Aunt Breast cancer Maternal Uncle Lung cancer Paternal Uncle Breast cancer Lung cancer Paternal Grandmother Stomach cancer Paternal Aunt Lymphoma Social History Household Members: Spouse and Children Housing: House Are you a primary child care development specialist to a significant other at home: No Do you presently have visiting nurse or other home services: No Alcohol intake: current Patient Tobacco Use Status: Never used Tobacco e-Cigarette/Vaping Use: Never Used Second Hand Smoke Exposure: No service: No Current occupational status: unemployed Cognitive needs: No Hearing needs: No Vision needs: Yes Female Reproductive History Menstrual Age of Menarche: 9 Review of Systems Const All systems reviewed & are unremarkable except as noted in HPI and below Physical Exam Vital Signs: Last Vital Signs Temp 98.1 F 02/18/25 10:58 Pulse 70 02/18/25 10:58 BP 132/80 02/18/25 10:58 Pulse Ox 97 02/18/25 10:58 Oxygen Delivery Method Room Air 02/18/25 10:58 BMI result Body Mass Index 30.6 Office Procedures Fluorescein eye exam Details: right eye prepped with 2 drops tetracaine, dye applied and fluoroscein light applied, 0.5cm oblong corneal abrasion noted at 12 o'clock Assessment & Plan Assessment & Plan (1) Corneal abrasion, left: Code(s): S05.02XA - Injury of conjunctiva and corneal abrasion without foreign body, left eye, initial encounter Qualifiers: Encounter type: initial encounter Qualified Code(s): S05.02XA - Injury of conjunctiva and corneal abrasion without foreign body, left eye, initial encounter Plan: 0.5cm oblong corneal abrasion noted at 12 o'clock. The treatment plan for the corneal abrasion in the right eye involves covering the eye with antibiotic eye drops to avert infection, instructed at four administrations per day during waking hours. Should symptoms such as increasing pressure or visual disruptions occur, immediate medical evaluation is recommended to prevent further complications. Should also pursue ophthalmological follow-up if symptoms do not resolve. Adjustments in daily activities to avoid eye irritation or repeated trauma are also essential until the eye heals fully. Further consultation may be necessary if issues persist beyond the treatment week. Patient was informed and verbally consented to the use of an ambient scribe for clinic note documentation during this visit. Medications: New erythromycin Apply to left eye 4 times a day while awake 0.5 inches ophthalmic (eye) QID 3.5 grams 0RF Coding Level of Care Code Est Pt Level 4 (90406) Diagnoses Abrasion of left cornea, initial encounter S05.02XA Encounter type: initial encounter
== END 2025-02-18 11:27 | disposition home or self-care (01) ==
PROVIDERS: PCP Internal Medicine; Visit Provider Physician Assistant
DX: S05.02XA Injury of conjunctiva and corneal abrasion without foreign body, left eye, initial encounter (principal)

== ENCOUNTER → 2025-02-18 10:01 | Outpatient (BNVA) | payer BC, SELFPAY | PROVIDERS: PCP Internal Medicine; Visit Provider Physician Assistant | DX: Z13.89 Encounter for screening for other disorder (principal) ==

== ENCOUNTER 2025-03-09 11:47 | Outpatient (REF) | payer BC, SELFPAY ==
--- OUTSIDE RECORDS SUMMARY | 2025-03-09 12:38 | XMS_ITS | Data Portability ---
Author Organization [facility], Main Office Address [address] [facility] [address] [place] [address] Care Team Providers Care Staff Psychiatrist Name Role Phone TODDBOOM MITCHELL Primary Care Provider VALENTE ORTEGA OTHER KEVEN MEZA [employer] [facility] Orthopedic Surgeon LORENZO BUNCH Orthopedic [...] auto diff 2016 017 [facility], [address], [address], [place], [address], 7 14:24:20 TSH, serum or plasm a 2016 017 [facility], [address], [place], [address], 7 14:35:26 vitam in D, 25-hy droxy , total , serum 2016 017 [facility], [address] [facility], [address], [address], 7 23:40:51 urina lysis , compl ete [...] cance r scree denita 2014 015 abolcun [facility], [address] [place], [address], 5 08:24:58 Surgeries None recor ded. Imaging x-ray , knee, 3 view - for eval of left knee pain, rule out fract ure and arthr itis 2014 015 abolcun Not available 5 15:34:22 Medication Orders Vitam in D3 25 mcg (1,00 0 unit) capsu le 2016 017 [facility], [address] [place], [address], 7 12:07:56 napro xen 500 mg table t 2016 017 [facility], [address], [place], [id number], 7 12:08:03 fluox etine 20 mg capsu le 2016 017 [facility], [address], [place], [id number], 7 10:40:09 amitr iptyl ine 10 mg table t 2016 017 [facility], [address], [place], [id number], 7 10:40:08 sumat ripta n 100 mg table t 2016 017 INTERFACE [facility], [address] [place] [address], [address], 7 10:40:05 fluox etine 20 mg capsu le 2016 017 [facility], [address], [place], [id number], 7 11:43:27 cyclo benza davon 10 mg table t 2014 015 abolcun [facility], [address], [place], [id number], 7 10:06:32 napro xen 500 mg table t 2014 015 abolcun [facility]81287, [address], [place], [id number], 7 10:06:41 Patient Targets Encounter Date Encounter Id Patient Goals Patient Target Last Modified By Organization Details Last Modified Time 02/09/2015 [id number] 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 awychowski Not available 02/09/2015 14:09:15 06/02/2015 [id number] tennis elbow: care instructions awychowski Not available 06/05/2015 13:02:41 pinkeye: care instructions awychowski Not available 06/05/2015 13:02:41 back pain: care instructions awychowski Not available 06/05/2015 13:02:41 meniscus tear: exercises awychowski Not available 06/05/2015 13:02:41 knee pain or injury: care instructions awychowski Not available 06/05/2015 13:02:41 12/26/2016 [id number] abnormal weight loss: care instructions Not available 12/26/2016 12:56:55 Preventing Depression From Coming Back: Care Instructions Not available 12/26/2016 12:56:55 04/28/2017 [id number] depression treatment: care instructions Not available 04/28/2017 11:09:37 insomnia: care instructions Not available 04/28/2017 11:09:36 08/01/2017 [id number] anxiety disorder: care instructions ckrym Not available 08/01/2017 12:22:11 Reason for Referral 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 Refer ence: [facility] Data Brief : No.[id number] December: Vitam in [...] 5:15 pm Patien t Class: [facility]pat [facility] (Centralized Electronic Ordering - All Locations) Patient Can Go To The Location Of Their Choice, [address] 12/26/2016 10:36:34 09/04/20 15 09/04/2015 imagi ng/di agnos tic resul t No observ ation record ed. [facility] Orders [address] [facility] [address], [place], [address], 12/26/2016 10:36:34 09/05/20 16 09/05/2016 MAMMO , scree denita, bilat eral No observ ation record ed. [facility] Orders [address], [place], [address], 12/26/2016 10:36:34 09/21/20 18 09/18/2018 MAMMO , scree denita, digit al, bilat eral No observ ation record ed. [address], [address], 09/23/2018 13:56:18 Result Notes None recorded. Problems Name Problem SNOMED Code Status Onset Date Resolution Date Notes Provider Name and Address Organization Details Recorded Time Insomnia 419138457 Active 2013 IMPRESSI ON: MULTIPLE POSSIBLE UNDERLYI NG FACTORS LIKELY CONTRIBU TING. FIRST WILL FOCUS ON IMPLEMEN TING ADEQUATE BERT MGMT. SEE IF TRAZODON E HELPS.; RECORDED 04/07/20 14 1:07PM BY BOOM Shepard MD, OFFICE VISIT Gwendolyn skelton [facility] 8 13:21:34 Anemia 782886491 Completed 201306/06/2014 RECORDED 04/07/20 14 12:08PM BY BOOM Shepard MD, ANNOTATI ON/ADDEN DUM Not Available [facility] 4 05:13:21 Screenin g for malignan t neoplasm of breast Completed 201106/06/2014 RECORDED 06/10/20 12 12:54PM BY GREGORIA GOYAL MA, ANNOTATI ON/ADDEN DUM Not Available [facility] 4 05:13:21 Pain of breast 45004405 Active 2013 RECORDED 04/22/20 14 8:20AM BY LORENZA HORTA, HISTORIC AL SUMMARY Gwendolyn skelton [facility] 8 13:21:33 Screenin g for malignan t neoplasm of cervix Completed 201306/06/2014 RECORDED 01/05/20 14 11:08AM BY JORDANA DICKINSON MA, ANNOTATI ON/ADDEN DUM Not Available [facility] 4 05:13:22 History of depressi on 534847456 Completed 201106/06/2014 RECORDED 06/10/20 12 1:58PM BY BOOM Shepard MD, ANNOTATI ON/ADDEN DUM Not Available [facility] 4 05:13:22 Shoulder joint pain 012789910 Completed 201206/06/2014 RECORDED 01/07/20 13 4:04PM BY GREGORIA GOYAL MA, MANAATI ON/ADDEN DUM Not Available [facility] 4 05:13:22 Sleep apnea 43286780 Completed 200908/01/2017 DATE: 08/16/20 10; STORY: 9CM H2O Boom Gómez MD [address] [address], [place], [address] , [facility] 7 12:05:11 Urinary tract infectio us disease 94016767 Completed 201206/06/2014 RECORDED 01/07/20 13 4:04PM BY GREGORIA GOYAL MA, ANNOTATI ON/ADDEN DUM Not Available [facility] 4 05:13:22 Vitamin D deficien cy 89872506 Completed 201306/06/2014 RECORDED 04/07/20 14 12:08PM BY BOOM Shepard MD, ANNOTATI ON/ADDEN DUM Not Available [facility] 4 05:13:22 Anemia 552824482 Active 2013 RECORDED 03/08/20 14 2:57PM BY BOOM Shepard MD, LAB REQ Gwendolyn skelton [facility] 8 13:21:34 Arthropa thy 641493679 Active 2013 RECORDED 04/07/20 14 11:07AM BY JORDANA DICKINSON MA, OFFICE VISIT Gwendolyn skelton [facility] 8 13:21:34 Screenin g for malignan t neoplasm of breast Completed 201105/10/2014 RECORDED 06/10/20 12 12:54PM BY GREGORIA GOYAL MA, ANNOTATI ON/ADDEN DUM Not Available [facility] 4 13:28:11 Screenin g for malignan t neoplasm of cervix Completed 201305/10/2014 RECORDED 01/05/20 14 11:08AM BY JORDANA DICKINSON MA, ANNOTATI ON/ADDEN DUM Not Available [facility] 4 13:28:11 History of depressi on 397743753 Completed 201105/10/2014 RECORDED 06/10/20 12 1:58PM BY BOOM Shepard MD, ANNOTATI ON/ADDEN DUM Not Available [facility] 4 13:28:11 Dysthymi a 83190160 Active 2013 IMPRESSI ON: WELL CONTROLL ED, REPRTS RECENT FAILURE WITH TAPERING TRIAL. WILL CONTINUE CURRENT REGIMEN. ; RECORDED 04/07/20 14 11:07AM BY JORDANA DICKINSON MA, OFFICE VISIT Gwendolyn skelton [facility] 8 13:21:34 Nervous system and sense organ diseases 551347259 Active 2013 IMPRESSI ON: USING OTC ABORTIVE MEDS WITH GOOD RESULTS. SOUNDS WELL CONTROLL ED, NEVER HAD IMAGING. WILL SEE WHAT OLD PCP RECORDS SHOW.; RECORDED 04/07/20 14 11:07AM BY JORDANA DICKINSON MA, OFFICE VISIT Gwendolyn skelton [facility] 8 13:21:34 Migraine 57155920 Active 2013 IMPRESSI ON: PE AND HPI [...] JORDANA DICKINSON MA, OFFICE VISIT Gwendolyn skelton [facility] 8 13:21:34 Obesity 317585033 Active 2013 RECORDED 04/07/20 14 12:10PM BY BOOM Shepard MD, OFFICE VISIT Gwendolyn skelton [facility] 8 13:21:33 Shoulder joint pain 070164347 Completed 201205/10/2014 RECORDED 01/07/20 13 4:04PM BY GREGORIA GOAYL MA, ANNOTATI ON/ADDEN DUM Not Available [facility] 4 13:28:12 Urinary tract infectio us disease 06327941 Completed 201205/10/2014 RECORDED 01/07/20 13 4:04PM BY GREGORIA GOYAL MA, ANNOTATI ON/ADDEN DUM Not Available [facility] 4 13:28:12 Vitamin D deficien cy 08125800 Active 2013 RECORDED 03/08/20 14 2:56PM BY BOOM Shepard MD, LAB REQ Gwendolyn Horta null, [facility] 8 13:21:33 Breast lump 32798360 Active Gwendolyn Horta null, [facility] 8 13:21:33 Conjunct ivitis 3590768 Completed 02/09/2015 Boom Gómez MD [address] [facility] [address], [place], [address] , [facility] 7 12:05:14 Swelling of ankle joint 176679606 Active Gwendolyn Horta null, [facility] 8 13:21:34 Peroneal tendinit is 08218179 Active Gwendolyn Horta null, [facility] 8 13:21:33 Body mass index 30+ - obesity 378790245 Active Gwendolyn Horta null, [facility] 8 13:21:34 Obstruct xiao sleep apnea syndrome 17048955 Active STORY: 9CM H2O Gwendolyn Horta null, [facility] 8 13:21:34 Fatigue 80294740 Active Gwendolyn Horta null, [facility] 8 13:21:34 Lateral epicondy litis 896612348 Active Gwendolyn Horta null, [facility] 8 13:21:34 Conjunct ivitis 6942515 Completed 08/01/2017 Boom Gómez MD [address] [facility] [address], [place], [address] , [facility] 7 12:05:14 Knee pain Active Gewndolyn Horta null [facility] 8 13:21:33 Pain of multiple joints 64083039 Active Gwendolyn skelton [facility] 8 13:21:34 Backache 699738578 Active Gwendolyn skelton [facility] 8 13:21:33 Iron deficien cy anemia 54478725 Active 2016 Gwendolyn skelton [facility] 8 13:21:33 Major depressi on single episode, in partial remissio n 62529426 Active 2016 Gwendolyn skelton [facility] 8 13:21:34 Generali zed anxiety disorder 15930196 Active 2016 Gwendolyn skelton [facility] 8 13:21:34 Shoulder tendinit is Active 2017 Gwendolyn skelton [facility] 8 13:21:34 Osteoart hritis of joint of hand 83081743 Active 2017 Gwendolyn skelton [facility] 8 13:21:33 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 Procedures Surgical History Date Name Laterality Status Provider Name and Address Organization Details Recorded Time 09/18/20 18 Most Recent Mammogram completed Esperanza West [facility] 09/23/2018 13:55:49 09/18/20 18 Mammogram screening completed Esperanzajorge West [facility] 09/23/2018 13:55:41 12/03/19 18 Orthopedic Surgery completed Boom Gómez MD [address] [address], [place], [address], [facility] 01/06/2018 16:50:23 07/29/20 13 Date of Last Pap Smear completed Gregoria Goyal [place] [facility] 02/09/2015 13:48:56 Tubal Ligation completed Gregoria Goyal [place] [facility] 02/09/2015 13:48:55 Dilation and Curettage completed Gregoria Goyal [place] [facility] 02/09/2015 13:48:55 Caesarean Section completed Gregoria Goyal [place] [facility] 02/09/2015 13:48:55 Endometrial cryoablation completed Boom Gómez MD [address] [facility] [address], [place], [address], [facility] 02/09/2015 14:02:58 FOBT completed Natalie dacosta [facility] 12/27/2016 14:48:05 Colonoscopy completed Natalie dacosta, [facility] 04/28/2017 09:56:10 Imaging Results Imaging Date Name Status LastModified by Organ [facility] Details LastModified Time 04/12/2015 imaging/diagno stic result completed [facility] Information not available 06/05/2015 12:59:14 06/02/2015 knee routine 3 views left [facility] (Centralized Electronic Ordering - All Locations) Patient Can Go To The Location Of Their Choice, [id number] 12/26/2016 10:36:34 09/04/2015 imaging/diagno stic result completed [facility] Orders [address], [place], [address], 12/26/2016 10:36:34 09/05/2016 MAMMO, screening, bilateral completed [facility] Orders [address], [place], [address], 12/26/2016 10:36:34 09/18/2018 MAMMO, screening, digital, bilateral completed [address], [place], [address], 09/23/2018 13:56:18 Procedure Notes None recorded. Medical Equipment None Reported. Allergies Allergen ID Allergen Name Allergen Category Reaction Reaction Severity Criticality Documentation Date Start Date Code Code System Note Provider Name and Address Organization Details Recorded Time thimerosa l medicatio n itching Not available Not available 02/09/2015 07895 RxNorm [place], [facility] 5 13:48:56 66030 neomycin medicatio n rash Not available Not available 04/28/2017 7299 [facility] [place] Kamara, [facility] 7 09:54:21 Medications Name Sig Start Date [...] /min 98 % 98 % 98.7 [degF] 25096.0 3 g 31.7 kg/m2 122 mm[Hg] 72 mm[Hg] [place], [place] [facility] 7 10:10:16 Date Recorded Body height Oxygen saturation Oxygen saturation in Arterial blood by Pulse oximetry Heart rate Body temperature Body mass index (BMI) Body weight Systolic blood pressure Diastolic blood pressure Provider Name and Address Organization Details Last Updated DateTime 7 160.02 cm 97 % 97 % 70 /min 98.6 [degF] 31 kg/m2 69456.6 6 g 116 mm[Hg] 76 mm[Hg] Natalie hewitt [place] [facility] 7 09:57:49 Date Recorded Body height Body mass index (BMI) Body weight Body temperature Heart rate Oxygen saturation Oxygen saturation in Arterial blood by Pulse oximetry Systolic blood pressure Diastolic blood pressure Provider Name and Address Organization Details Last Updated DateTime 7 160.02 cm 30.6 kg/m2 83222.4 8 g 97.7 [degF] 97 /min 68 % 68 % 122 mm[Hg] 80 mm[Hg] Gregoria Goyal [place] [facility] 7 11:46:04 Date Recorded Oxygen saturation Oxygen saturation in Arterial blood by Pulse oximetry Body weight Heart rate Body mass index (BMI) Body height Body temperature Systolic blood pressure Diastolic blood pressure Provider Name and Address Organization Details Last Updated DateTime 5 98 % 98 % 28549.3 6556 g 78 /min 33.3 kg/m2 160.02 cm 96.3 [degF] 120 mm[Hg] 80 mm[Hg] Gregoria Goyal [place] [facility] 5 13:48:55 Date Recorded Body weight Oxygen saturation Oxygen saturation in Arterial blood by Pulse oximetry Body height Body mass index (BMI) Body temperature Heart rate Systolic blood pressure Diastolic blood pressure Provider Name and Address Organization Details Last Updated DateTime 5 63329.1 8082 g 98 % 98 % 160.02 cm 32.9 kg/m2 98.6 [degF] 78 /min 119 mm[Hg] 75 mm[Hg] Gregoria Goyal [place] [facility] 5 15:06:35 Social History Question Answer Notes LastModified by Organizat ion Details LastModified Time Tobacco Smoking Status Never Smoker Not Available [facility] 08/29/2020 03:36:45 Do You Have An Advance Directive? Yes [id number] Information not available 08/29/2020 Is Blood Transfusion Acceptable In An Emergency? Yes [id number] Information not available 08/29/2020 What Is Your Level Of Caffeine Consumption? Moderate Tea [id number] Information not available 08/29/2020 How Much Tobacco Do You Chew? None [id number] Information not available 08/29/2020 What Type Of Diet Are You Following? REGULAR [id number] Information not available 08/29/2020 Which Illicit Or Recreational Drugs Have You Used? None [id number] Information not available 08/29/2020 Live Alone Or [...] Have You Served In The ? No [email or web address] Information not available 04/28/2017 What Was The Date Of Your Most Recent Tobacco Screening? 08/01/2017 [id number] Information not available 08/29/2020 How Many Children Do You Have? 3 1 Son And 2 Dtrs [id number] Information not available 08/29/2020 Seat Belts Used Routinely Yes awychowski Information not available 02/09/2015 Are You Sexually Active? Yes [id number] Information not available 08/29/2020 Smoke Alarm In Home Yes Information not available 12/26/2016 At What Age Did You Start Smoking Tobacco? 1 [id number] Information not available 08/29/2020 Are You Passively Exposed To Smoke? Yes Information not available 02/09/2015 How Much Tobacco Do You Smoke? No [id number] Information not available 08/29/2020 Do You Use Sunscreen Routinely? Yes [id number] Information not available 08/29/2020 How Many Years Have You Smoked Tobacco? 0 [id number] Information not available 08/29/2020 Sex: Unknown Functional Status Question Answer Note LastModified by Organizat ion Details LastModified Time What is your level of alcohol consumption? Occasional [id number] Information not available 08/29/2020 Are you currently employed? Yes [id number] Information not available 08/29/2020 Are you able to care for yourself? 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 None [id number] Information not available 08/29/2020 Mental Status None [...] abolcun Not available 2014 15:07:12 Mother Malignant neoplasm of lung awychowski Not available 12/26 10:34:38 [...] virus, quadrivalent, PF 8 completed [facility] 13:21:28 Tdap 8 completed Gwendolynminal skelton, [facility] 07/09/2018 13:21:28 Td (adult), 2 Lf tetanus toxoid, preservative free, adsorbed 1 completed Gwendolynminal skelton [facility] 07/09/2018 13:21:28 Tdap 1 completed Gwendolyn skelton, [facility] 07/09/2018 13:21:28 Past Encounters Encounter ID Performer Location Encounter Start Date Encounter Closed Date Diagnosis/Indication Diagnosis SNOMED-CT Code Diagnosis ICD10 Code Diagnosis Note [id number] autoEComm erce [address] [facility] [place] [address] 06/10/2012 00:00:00 [id number] autoEComm erce [address] [facility] [facility] [place] [address] 01/04/2014 00:00:00 [id number] autoEComm erce [address] [facility] [place] [address] 04/07/2014 00:00:00 [id number] Boom Gómez MD Main Office [address] [address] [place] [address] 10/19/2014 11:22:56 10/19/2014 12:33:36 Conjunctivitis 3142341 Suspect what was initially a viral process was aggravated by a reaction to Polytrim drops. Will culture to rule out resistant organisms and pt advised to hold off on cipro drops unless discharge becomes more purulent or persistent . Will need ophtho eval if persistent /worse. [id number] Boom Gómez MD Main Office [address] [address] [place] [address] 12/13/2014 15:20:14 12/13/2014 16:16:58 Swelling of ankle joint 990167566 Etiology unclear. ? reactive arthropath y vs metabolic vs arthritic in nature. Will start with imaging/la bs and consider ortho vs rheum eval depending on result. Vitamin D deficiency 89670102 [id number] Boom Gómez MD Main Office [address] [address] [place] [address] 02/09/2015 13:32:24 02/09/2015 14:34:45 Adult health examination 340494614 Immunizati on status and screening utd except for colonoscop y. Regular dental and ophtho care advised as well as seatbelt and sunscreen use. Distracted driving discussed. Advance directives in place. Body mass index 30+ - obesity 114964648 Obstructiv e sleep apnea syndrome 16583878 Has machine but no supplies in over 1 yr and hence has not been complying with therapy. Will arrange for replacemen t supplies. Screening for malignant neoplasm of colon 940805071 Due for screening will arrange. Fatigue 10235620 Potenti all y multifacto rial but most obvious explainati on is untreated BERT. Will reassess after resuming CPAP. [id number] Boom Gómez MD Main Office [address] [address] [place] [address] 06/02/2015 14:37:52 06/02/2015 15:54:39 Lateral epicondylitis 251149522 Refer for PT inb/worse. Conjunctivitis 2685949 N ot typical for infectious process and no acute symptoms. Pt will schedule ophtho appointmen t edgardo. Knee pain 29086128 Image looking for AO or acute changes. Refer to ortho if persistent /worse. Pain of mu ltiple joints 60844467 Odd constellat ion of symptoms. Will screen for autoimmune MCTD. Backache 674089156 [id number] Boom Gómez MD Main Office [address] [address] [place] [address] 12/26/2016 09:43:54 12/26/2016 10:47:36 Major depressive disorder 511108077 F32.9 Symptoms are severe and limiting. Will try medication in addition to therapy. Tolerated fluoxetine in the distant past. Pt advised of common/ser ious potential medication side effects and to call if noted. Will titrate med as tolerated to goal symptom control. Anhedonia 51075966 R45.8 4 Likely secondary to depression . Will screen for possible metabolic contributo rs. Abnormal weight loss 267 575680 R63.4 Vitamin D deficiency 347 65692 E55.9 [id number] Dougie Lazaro MD Main Office [address] [facility] [address] [place] [place] [address] 04/28/2017 09:42:08 04/28/2017 10:46:57 Migraine 38809700 G43.909 Insomnia 770166947 G47.0 0 Dysthymia 18368641 F34.1 [id number] Boom Gómez MD Main Office [address] [facility] [place], [place] [address] 08/01/2017 11:26:11 08/01/2017 12:10:56 Pain of multiple joints 83376437 M25.50 Some symptoms seem osteoarthr itic and possible that vitamin D deficiency is also a factor. See if NSAID helps with both this and her RILEY. Vitamin D deficiency 347 96584 E55.9 Advised to resume supplement edgardo. Migraine 64076511 G43.90 9 Current regimen working well. Will contiue as is with addition of NSAID. Major depr ession single episode, in partial remission 75299923 F32.4 Stable on current dose. Following with therapist. Will continue as is. Generalize d anxiety disorder 02918633 F41.1 Health Concerns Section Related Observation LastModified by Organization Detai ls LastModified Time None Recorded Concern Status LastModified by Organization Details LastModified Time None Recorded Advance Directives Directive Y: Payers Encounter Date Sequence Insurance Name Policy Number Policy Mccrary Covered Member ID Mccrary Member ID Guarantor Name 02/09/2015 1 [facility] ([facility] [id number] Hawk Olivo [id number] Hawk Olivo 06/02/2015 1 [facility] (O) [id number] Hawk Olivo [id number] Hawk Olivo 12/26/2016 1 [facility] [place] [id number] Hawk Odell Olivo [id number] Hawk Sierraerta 04/28/2017 1 [facility] [employer] [facility] (PPO) [id number] Hawk C Olivo [id number] Hawk Olivo 08/01/2017 1 [facility]: [facility] [employer] [facility] [id number] Hawk C Olivo [id number] Hawk Olivo Notes Date Note Type Note [...] degree of symptoms. Boom Gómez MD [address], [address], [facility] 12/31/2016 22:03:01 04/28/2017 text/html HeadacheReported bypatient.Notes:Notes that [...] notes worsening symptoms. Dougie Lazaro MD [address] [address], [place], [address], [facility] 04/28/2017 10:49:05 08/01/2017 text/html HeadacheReported bypatient.Location:occ ipital Quality:similar to previous headaches;piercing/sta bbing (lancinating) Onset/Timing:better Associated Symptoms:vomiting;phot ophobia;tearing/watery eyesNotes:Imitrex and TCA seem to be helping.Musculoskeleta l PainReported bypatient.Location:pennie ateral arm; left wrist Quality:aching Severity:worsening Duration:present for 6-12 months Timing:intermittentNot es:Has known vitamin D deficiency but is not taking supplement. Boom Gómez MD [id number] [id number], [place], [id number], [facility] 08/01/2017 12:19:09 OBGyn Episode No OBEpisode recorded.
[2025-03-09 14:26] LABS: Alanine Aminotransferase 23 U/L (0-31); Anion Gap 11 (12-20); Aspartate Amino Transferase 33 U/L (5-31); Blood Urea Nitrogen 14 mg/dL (9-16); Carbon Dioxide 27 mmol/L (22-29); Chloride 106 mmol/L (96-108); Cholesterol 217 mg/dL (<200); Estimated Glomerular Filt Rate > 60; Glucose Fasting 90 mg/dL (60-99); HDL Cholesterol 74 mg/dL (>40); LDL Cholesterol Calculated 133 mg/dL (<100); Potassium 4.1 mmol/L (3.3-5.1); Sodium 140 mmol/L (135-145); Triglycerides 52 mg/dL (<150)
[2025-03-09 14:28] LABS: Vitamin D 25-OH Total 50.8 ng/mL (>30)
== END 2025-03-09 11:48 | disposition home or self-care (01) ==
LOC: HO.HMGCLDS 11:47
PROVIDERS: PCP Internal Medicine; Visit Provider Internal Medicine
DX: G47.33 Obstructive sleep apnea (adult) (pediatric) (principal); E66.9 Obesity, unspecified; F41.8 Other specified anxiety disorders; I10 Essential (primary) hypertension; E78.00 Pure hypercholesterolemia, unspecified
CPT/HCPCS: 36415; 80048; 80061; 82306; 84450; 84460

== ENCOUNTER 2025-03-18 11:11 | Outpatient (REF) | payer BC, SELFPAY ==
--- NOTE | ~2025-03-18 | MM_ITS ---
EXAMINATION: DXA BONE DENSITY AXIAL HISTORY: Z78.0 - Asymptomatic menopausal state TECHNIQUE: Penneo Dual energy absorptiometry (DEXA) of the lumbar spine, total left hip, and femoral neck was performed. COMPARISON: There are no prior studies for comparison. FINDINGS: The bone mineral density of the lumbar spine is 1.169, corresponding to a T-score of -0.1, and a Z-score of 0.9. This is indicative of normal bone mineral density. The bone mineral density of the left total hip is 0.959, corresponding to a T-score of -0.4, and a Z-score of 0.4. This is indicative of normal bone mineral density. The bone mineral density of the left femoral neck is 0.867, corresponding to a T-score of -1.2, and a Z-score of -0.2. This is indicative of osteopenia. FRACTURE RISK: The FRAX index suggests a risk of major osteoporotic fracture of 16.5%, and of hip fracture 1.4%. MM/XR DEXA axial skeleton IMPRESSION: Based on bone mineral density, and according to World Health Organization (WHO) criteria, the diagnosis is consistent with osteopenia. All bone density values are in grams per centimeter squared (g/cm2). Statistically, 68% of repeat scans fall within 1 SD (+/- 0.010 g/cm2 for AP spine L1-L4) and 1 SD (+/- 0.012 g/cm2 for femur total) FRAX is a trademark of the [employer] [facility] [employer], a World Health Organization (WHO) Collaborating Center. Electronically signed by: Hayden Piña MD 03/18/2025 11:50 AM EDT
--- OUTSIDE RECORDS SUMMARY | 2025-03-18 11:16 | XMS_ITS | Data Portability ---
Author Organization [facility], Main Office Address [address] [facility] [address] [place] [address] Care Team Providers Care Silver Designer Name Role Phone TODDBOOM MITCHELL Primary Care Provider [phone] VALENTE ORTEGA OTHER KEVEN MEZA Assistant Designer [facility] Orthopedic Surgeon [phone] LORENZO BUNCH Orthopedic Surgeon DAVID ACOSTA OTHER [...] auto diff 2016 017 [facility], [address], [place], [address], 7 14:24:20 TSH, serum or plasm a 2016 017 [facility], [address], [address], [place], [address], 7 14:35:26 vitam in D, 25-hy droxy , total , serum 2016 017 [facility], [address] [facility], [address], [address], 7 23:40:51 urina lysis , compl ete [...] cance r scree denita 2014 015 abolcun [facility], [address] [place], [address], 5 08:24:58 Surgeries None recor ded. Imaging x-ray , knee, 3 view - for eval of left knee pain, rule out fract ure and arthr itis 2014 015 abolcun Not available 5 15:34:22 Medication Orders Vitam in D3 25 mcg (1,00 0 unit) capsu le 2016 017 zuly [facility], [address] [place], [address], 7 12:07:56 napro xen 500 mg table t 2016 017 [facility], [address], [place], [id number], 7 12:08:03 fluox etine 20 mg capsu le 2016 017 [facility], [address], [place], [id number], 7 10:40:09 amitr iptyl ine 10 mg table t 2016 017 [facility], [address], [place], [id number], 7 10:40:08 sumat ripta n 100 mg table t 2016 017 INTERFACE [facility], [address] [place] [address], [address], 7 10:40:05 fluox etine 20 mg capsu le 2016 017 [facility], [address], [place], [id number], 7 11:43:27 cyclo benza davon 10 mg table t 2014 015 abolcun [facility], [address], [place], [id number], 7 10:06:32 napro xen 500 mg table t 2014 015 abolcun [facility], [address], [place], [id number], 7 10:06:41 Patient Targets Encounter Date Encounter Id Patient Goals Patient Target Last Modified By Organization Details Last Modified Time 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 awychowski Not available 02/09/2015 14:09:15 06/02/2015 [id number] tennis elbow: care instructions awychowski Not available 06/05/2015 13:02:41 pinkeye: care instructions awychowski Not available 06/05/2015 13:02:41 back pain: care instructions awychowski Not available 06/05/2015 13:02:41 meniscus tear: exercises awychowski Not available 06/05/2015 13:02:41 knee pain or injury: care instructions awychowski Not available 06/05/2015 13:02:41 12/26/2016 [id number] abnormal weight loss: care instructions Not available 12/26/2016 12:56:55 Preventing Depression From Coming Back: Care Instructions Not available 12/26/2016 12:56:55 04/28/2017 [id number] depression treatment: care instructions Not available 04/28/2017 11:09:37 insomnia: care instructions Not available 04/28/2017 11:09:36 08/01/2017 [id number] anxiety disorder: care instructions [email or web address] Not available 08/01/2017 12:22:11 Reason for Referral Mycologist/dietitian Refer ral for Body mass index 30+ [...] CIENT IN VITAM IN D. Refer ence: [facility] Data Brief : No.[id number] December: Vitam in [...] 5:15 pm Patien t Class: Outpat ient [facility] (Centralized Electronic Ordering - All Locations) Patient Can Go To The Location Of Their Choice, [id number] 12/26/2016 10:36:34 09/04/20 15 09/04/2015 imagi ng/di agnos tic resul t No observ ation record ed. [facility] Orders [address] [facility] [address], [place], [address], 12/26/2016 10:36:34 09/05/20 16 09/05/2016 MAMMO , scree denita, bilat eral No observ ation record ed. [facility] Orders [address], [place], [address], 12/26/2016 10:36:34 09/21/20 18 09/18/2018 MAMMO , scree denita, digit al, bilat eral No observ ation record ed. [address], [address], 09/23/2018 13:56:18 Result Notes None recorded. Problems Name Problem SNOMED Code Status Onset Date Resolution Date Notes Provider Name and Address Organization Details Recorded Time Insomnia 641453826 Active 2013 IMPRESSI ON: MULTIPLE POSSIBLE UNDERLYI NG FACTORS LIKELY CONTRIBU TING. FIRST WILL FOCUS ON IMPLEMEN TING ADEQUATE BERT MGMT. SEE IF TRAZODON E HELPS.; RECORDED 04/07/20 14 1:07PM BY BOOM Shepard MD, OFFICE VISIT Gwendolyn skelton [facility] 8 13:21:34 Anemia 769077977 Completed 201306/06/2014 RECORDED 04/07/20 14 12:08PM BY BOOM Shepard MD, ANNOTATI ON/ADDEN DUM Not Available [facility] 4 05:13:21 Screenin g for malignan t neoplasm of breast Completed 201106/06/2014 RECORDED 06/10/20 12 12:54PM BY GREGORIA GOYAL MA, ANNOTATI ON/ADDEN DUM Not Available [facility] 4 05:13:21 Pain of breast 36967642 Active 2013 RECORDED 04/22/20 14 8:20AM BY LORENZA HORTA, HISTORIC AL SUMMARY Gwendolyn skelton [facility] 8 13:21:33 Screenin g for malignan t neoplasm of cervix Completed 201306/06/2014 RECORDED 01/05/20 14 11:08AM BY JORDANA DICKINSON MA, ANNOTATI ON/ADDEN DUM Not Available [facility] 4 05:13:22 History of depressi on 481440186 Completed 201106/06/2014 RECORDED 06/10/20 12 1:58PM BY BOOM Shepard MD, ANNOTATI ON/ADDEN DUM Not Available [facility] 4 05:13:22 Shoulder joint pain 759303259 Completed 201206/06/2014 RECORDED 01/07/20 13 4:04PM BY GREGORIA GOYAL MA, MANAATI ON/ADDEN DUM Not Available [facility] 4 05:13:22 Sleep apnea 32513864 Completed 200908/01/2017 DATE: 08/16/20 10; STORY: 9CM H2O Boom Gómez MD [address] [address], [place], [address] , [facility] 7 12:05:11 Urinary tract infectio us disease 96748243 Completed 201206/06/2014 RECORDED 01/07/20 13 4:04PM BY GREGORIA GOYAL MA, ANNOTATI ON/ADDEN DUM Not Available [facility] 4 05:13:22 Vitamin D deficien cy 61962524 Completed 201306/06/2014 RECORDED 04/07/20 14 12:08PM BY BOOM Shepard MD, ANNOTATI ON/ADDEN DUM Not Available [facility] 4 05:13:22 Anemia 124018759 Active 2013 RECORDED 03/08/20 14 2:57PM BY BOOM Shepard MD, LAB REQ Gwendolyn skelton [facility] 8 13:21:34 Arthropa thy 712696009 Active 2013 RECORDED 04/07/20 14 11:07AM BY JORDANA DICKINSON MA, OFFICE VISIT Gwendolyn skelton [facility] 8 13:21:34 Screenin g for malignan t neoplasm of breast Completed 201105/10/2014 RECORDED 06/10/20 12 12:54PM BY GREGORIA GOYAL MA, ANNOTATI ON/ADDEN DUM Not Available [facility] 4 13:28:11 Screenin g for malignan t neoplasm of cervix Completed 201305/10/2014 RECORDED 01/05/20 14 11:08AM BY JORDANA DICKINSON MA, ANNOTATI ON/ADDEN DUM Not Available [facility] 4 13:28:11 History of depressi on 147283521 Completed 201105/10/2014 RECORDED 06/10/20 12 1:58PM BY BOOM Shepard MD, ANNOTATI ON/ADDEN DUM Not Available [facility] 4 13:28:11 Dysthymi a 32771432 Active 2013 IMPRESSI ON: WELL CONTROLL ED, REPRTS RECENT FAILURE WITH TAPERING TRIAL. WILL CONTINUE CURRENT REGIMEN. ; RECORDED 04/07/20 14 11:07AM BY JORDANA DICKINSON MA, OFFICE VISIT Gwendolyn skelton [facility] 8 13:21:34 Nervous system and sense organ diseases 608127274 Active 2013 IMPRESSI ON: USING OTC ABORTIVE MEDS WITH GOOD RESULTS. SOUNDS WELL CONTROLL ED, NEVER HAD IMAGING. WILL SEE WHAT OLD PCP RECORDS SHOW.; RECORDED 04/07/20 14 11:07AM BY JORDANA DICKINSON MA, OFFICE VISIT Gwendolyn skelton [facility] 8 13:21:34 Migraine 37838572 Active 2013 IMPRESSI ON: PE AND HPI [...] JORDANA DICKINSON MA, OFFICE VISIT Gwendolyn skelton [facility] 8 13:21:34 Obesity 157173285 Active 2013 RECORDED 04/07/20 14 12:10PM BY BOOM Shepard MD, OFFICE VISIT Gwendolyn skelton [facility] 8 13:21:33 Shoulder joint pain 353443542 Completed 201205/10/2014 RECORDED 01/07/20 13 4:04PM BY GREGORIA GOYAL MA, ANNOTATI ON/ADDEN DUM Not Available [facility] 4 13:28:12 Urinary tract infectio us disease 54550688 Completed 201205/10/2014 RECORDED 01/07/20 13 4:04PM BY GREGORIA GOYAL MA, ANNOTATI ON/ADDEN DUM Not Available [facility] 4 13:28:12 Vitamin D deficien cy 28160099 Active 2013 RECORDED 03/08/20 14 2:56PM BY BOOM Shepard MD, LAB REQ Gwendolyn Horta null, [facility] 8 13:21:33 Breast lump 36663420 Active Gwendolyn Horta null, [facility] 8 13:21:33 Conjunct ivitis 1671188 Completed 02/09/2015 Boom Gómez MD [address] [facility] [address], [place], [address] , [facility] 7 12:05:14 Swelling of ankle joint 673405199 Active Gwendolyn Horta null, [facility] 8 13:21:34 Peroneal tendinit is 66786406 Active Gwendolyn Horta null, [facility] 8 13:21:33 Body mass index 30+ - obesity 721973002 Active Gwendolyn Horta null, [facility] 8 13:21:34 Obstruct xiao sleep apnea syndrome 12370004 Active STORY: 9CM H2O Gwendolyn Horta null, [facility] 8 13:21:34 Fatigue 69270033 Active Gwendolyn Horta null, [facility] 8 13:21:34 Lateral epicondy litis 087959154 Active Gwendolyn Horta null, [facility] 8 13:21:34 Conjunct ivitis 0848809 Completed 08/01/2017 Boom Gómez MD [address] [facility] [address], [place], [address] , [facility] 7 12:05:14 Knee pain Active Gwendolyn Horta null [facility] 8 13:21:33 Pain of multiple joints 50897786 Active Gwendolyn skelton [facility] 8 13:21:34 Backache 888698654 Active Gwendolyn skelton [facility] 8 13:21:33 Iron deficien cy anemia 30792293 Active 2016 Gwendolyn skelton [facility] 8 13:21:33 Major depressi on single episode, in partial remissio n 84627247 Active 2016 Gwendolyn skelton [facility] 8 13:21:34 Generali zed anxiety disorder 93282776 Active 2016 Gwendolyn skelton [facility] 8 13:21:34 Shoulder tendinit is Active 2017 Gwendolyn skelton [facility] 8 13:21:34 Osteoart hritis of joint of hand 06509969 Active 2017 Gwendolyn skelton [facility] 8 13:21:33 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 Procedures Surgical History Date Name Laterality Status Provider Name and Address Organization Details Recorded Time 09/18/20 18 Most Recent Mammogram completed Esperanza [facility] 09/23/2018 13:55:49 09/18/20 18 Mammogram screening completed Esperanzajorge [facility] 09/23/2018 13:55:41 12/03/19 18 Orthopedic Surgery completed Boom Gómez MD [address] [address], [place], [address], [facility] 01/06/2018 16:50:23 07/29/20 13 Date of Last Pap Smear completed Gregoria Goyal [place] [facility] 02/09/2015 13:48:56 Tubal Ligation completed Gregoria Goyal MA [facility] 02/09/2015 13:48:55 Dilation and Curettage completed Gregoria Goyal MA [facility] 02/09/2015 13:48:55 Caesarean Section completed Gregoria Goyal [place] [facility] 02/09/2015 13:48:55 Endometrial cryoablation completed Boom Gómez MD [address] [facility] [address], [place], [address], [facility] 02/09/2015 14:02:58 FOBT completed Natalie dacosta [facility] 12/27/2016 14:48:05 Colonoscopy completed [facility] 04/28/2017 09:56:10 Imaging Results Imaging Date Name Status [facility]Modified by [facility] Details LastModified Time 04/12/2015 imaging/diagno stic result completed [facility] Information not available 06/05/2015 12:59:14 06/02/2015 knee routine 3 views left completed [facility] (Centralized Electronic Ordering - All Locations) Patient Can Go To The Location Of Their Choice, [address] 12/26/2016 10:36:34 09/04/2015 imaging/diagno stic result completed [facility] Orders [address], [place], [address], 12/26/2016 10:36:34 09/05/2016 MAMMO, screening, bilateral completed [facility] Orders [address], [place], [address], 12/26/2016 10:36:34 09/18/2018 MAMMO, screening, digital, bilateral completed [address], [place], [address], 09/23/2018 13:56:18 Procedure Notes None recorded. Medical Equipment None Reported. Allergies Allergen ID Allergen Name Allergen Category Reaction Reaction Severity Criticality Documentation Date Start Date Code Code System Note Provider Name and Address Organization Details Recorded Time thimerosa l medicatio n itching Not available Not available 02/09/2015 33629 RxNorm [place], [facility] 5 13:48:56 96609 neomycin medicatio n rash Not available Not available 04/28/2017 7299 RxNorm [place]ara, [facility] 7 09:54:21 Medications Name Sig Start [...] /min 98 % 98 % 98.7 [degF] 63488.0 3 g 31.7 kg/m2 122 mm[Hg] 72 mm[Hg] [place], [place] [facility] 7 10:10:16 Date Recorded Body height Oxygen saturation Oxygen saturation in Arterial blood by Pulse oximetry Heart rate Body temperature Body mass index (BMI) Body weight Systolic blood pressure Diastolic blood pressure Provider Name and Address Organization Details Last Updated DateTime 7 160.02 cm 97 % 97 % 70 /min 98.6 [degF] 31 kg/m2 97779.6 6 g 116 mm[Hg] 76 mm[Hg] Natalie hewitt [place] [facility] 7 09:57:49 Date Recorded Body height Body mass index (BMI) Body weight Body temperature Heart rate Oxygen saturation Oxygen saturation in Arterial blood by Pulse oximetry Systolic blood pressure Diastolic blood pressure Provider Name and Address Organization Details Last Updated DateTime 7 160.02 cm 30.6 kg/m2 09392.4 8 g 97.7 [degF] 97 /min 68 % 68 % 122 mm[Hg] 80 mm[Hg] Gregoria Goyal MA [facility] 7 11:46:04 Date Recorded Oxygen saturation Oxygen saturation in Arterial blood by Pulse oximetry Body weight Heart rate Body mass index (BMI) Body height Body temperature Systolic blood pressure Diastolic blood pressure Provider Name and Address Organization Details Last Updated DateTime 5 98 % 98 % 47057.3 6556 g 78 /min 33.3 kg/m2 160.02 cm 96.3 [degF] 120 mm[Hg] 80 mm[Hg] Gregoria Goyal MA [facility] 5 13:48:55 Date Recorded Body weight Oxygen saturation Oxygen saturation in Arterial blood by Pulse oximetry Body height Body mass index (BMI) Body temperature Heart rate Systolic blood pressure Diastolic blood pressure Provider Name and Address Organization Details Last Updated DateTime 5 98713.1 8082 g 98 % 98 % 160.02 cm 32.9 kg/m2 98.6 [degF] 78 /min 119 mm[Hg] 75 mm[Hg] Gregoria Goyal MA [facility] 5 15:06:35 Social History Question Answer Notes LastModified by Organizat ion Details LastModified Time Tobacco Smoking Status Never Smoker Not Available [facility] 08/29/2020 03:36:45 Do You Have An Advance Directive? Yes [id number] Information not available 08/29/2020 Is Blood Transfusion Acceptable In An Emergency? Yes [id number] Information not available 08/29/2020 What Is Your Level Of Caffeine Consumption? Moderate Tea [id number] Information not available 08/29/2020 How Much Tobacco Do You Chew? None [id number] Information not available 08/29/2020 What Type Of Diet Are You Following? REGULAR [id number] Information not available 08/29/2020 Which Illicit Or Recreational Drugs Have You Used? None [id number] Information not available 08/29/2020 Live Alone Or [...] Have You Served In The ? No [email or web address] Information not available 04/28/2017 What Was The Date Of Your Most Recent Tobacco Screening? 08/01/2017 [id number] Information not available 08/29/2020 How Many Children Do You Have? 3 1 Son And 2 Dtrs [id number] Information not available 08/29/2020 Seat Belts Used Routinely Yes awychowski Information not available 02/09/2015 Are You Sexually Active? Yes [id number] Information not available 08/29/2020 Smoke Alarm In Home Yes Information not available 12/26/2016 At What Age Did You Start Smoking Tobacco? 1 [id number] Information not available 08/29/2020 Are You Passively Exposed To Smoke? Yes Information not available 02/09/2015 How Much Tobacco Do You Smoke? No [id number] Information not available 08/29/2020 Do You Use Sunscreen Routinely? Yes [id number] Information not available 08/29/2020 How Many Years Have You Smoked Tobacco? 0 [id number] Information not available 08/29/2020 Sex: Unknown Functional Status Question Answer Note LastModified by Organizat ion Details LastModified Time What is your level of alcohol consumption? Occasional [id number] Information not available 08/29/2020 Are you currently employed? Yes [id number] Information not available 08/29/2020 Are you able to care for yourself? 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 None [id number] Information not available 08/29/2020 Mental Status None [...] virus, quadrivalent, PF 8 completed [facility] 13:21:28 Tdap 8 completed Gwend[facility]ynminal skelton, [facility] 07/09/2018 13:21:28 Td (adult), 2 Lf tetanus toxoid, preservative free, adsorbed 1 completed Gwendolynminal skelton [facility] 07/09/2018 13:21:28 Tdap 1 completed Gwendolyn skelton, [facility] 07/09/2018 13:21:28 Past Encounters Encounter ID Performer Location Encounter Start Date Encounter Closed Date Diagnosis/Indication Diagnosis SNOMED-CT Code Diagnosis ICD10 Code Diagnosis Note [id number] autoEComm erce [address] [facility] [place] [address] 06/10/2012 00:00:00 [id number] autoEComm erce [address] [facility] [facility] [place] [address] 01/04/2014 00:00:00 [id number] autoEComm erce [address] [facility] [facility] [place] [address] 04/07/2014 00:00:00 [id number] Boom Gómez MD Main Office [address] [address] [place] [address] 10/19/2014 11:22:56 10/19/2014 12:33:36 Conjunctivitis 5350632 Suspect what was initially a viral process was aggravated by a reaction to Polytrim drops. Will culture to rule out resistant organisms and pt advised to hold off on cipro drops unless discharge becomes more purulent or persistent . Will need ophtho eval if persistent /worse. [id number] Boom Gómez MD Main Office [address] [address] [place] [address] 12/13/2014 15:20:14 12/13/2014 16:16:58 Swelling of ankle joint 282435267 Etiology unclear. ? reactive arthropath y vs metabolic vs arthritic in nature. Will start with imaging/la bs and consider ortho vs rheum eval depending on result. Vitamin D deficiency 39891387 [id number] Boom Gómez MD Main Office [address] [address] [place] [address] 02/09/2015 13:32:24 02/09/2015 14:34:45 Adult health examination 121241849 Immunizati on status and screening utd except for colonoscop y. Regular dental and ophtho care advised as well as seatbelt and sunscreen use. Distracted driving discussed. Advance directives in place. Body mass index 30+ - obesity 560381257 Obstructiv e sleep apnea syndrome 69802878 Has machine but no supplies in over 1 yr and hence has not been complying with therapy. Will arrange for replacemen t supplies. Screening for malignant neoplasm of colon 677377250 Due for screening will arrange. Fatigue 45431377 Potenti all y multifacto rial but most obvious explainati on is untreated BERT. Will reassess after resuming CPAP. [id number] Boom Gómez MD Main Office [address] [address] [place] [address] 06/02/2015 14:37:52 06/02/2015 15:54:39 Lateral epicondylitis 360341709 Refer for PT inb/worse. Conjunctivitis 0071128 N ot typical for infectious process and no acute symptoms. Pt will schedule ophtho appointmen t edgardo. Knee pain 04537640 Image looking for AO or acute changes. Refer to ortho if persistent /worse. Pain of mu ltiple joints 54323367 Odd constellat ion of symptoms. Will screen for autoimmune MCTD. Backache 220312182 [id number] Boom Gómez MD Main Office [address] [address] [place] [address] 12/26/2016 09:43:54 12/26/2016 10:47:36 Major depressive disorder 639086379 F32.9 Symptoms are severe and limiting. Will try medication in addition to therapy. Tolerated fluoxetine in the distant past. Pt advised of common/ser ious potential medication side effects and to call if noted. Will titrate med as tolerated to goal symptom control. Anhedonia 09793340 R45.8 4 Likely secondary to depression . Will screen for possible metabolic contributo rs. Abnormal weight loss 267 188212 R63.4 Vitamin D deficiency 347 67082 E55.9 [id number] Dougie Lazaro MD Main Office [address] [facility] [address] [place] [address] 04/28/2017 09:42:08 04/28/2017 10:46:57 Migraine 74380144 G43.909 Insomnia 596413003 G47.0 0 Dysthymia 88827477 F34.1 [id number] Boom Gómez MD Main Office [address] [facility] [place], [place] [address] 08/01/2017 11:26:11 08/01/2017 12:10:56 Pain of multiple joints 05168214 M25.50 Some symptoms seem osteoarthr itic and possible that vitamin D deficiency is also a factor. See if NSAID helps with both this and her RILEY. Vitamin D deficiency 347 70725 E55.9 Advised to resume supplement edgardo. Migraine 11769419 G43.90 9 Current regimen working well. Will contiue as is with addition of NSAID. Major depr ession single episode, in partial remission 17513792 F32.4 Stable on current dose. Following with therapist. Will continue as is. Generalize d anxiety disorder 74167839 F41.1 Health Concerns Section Related Observation LastModified by Organization Detai ls LastModified Time None Recorded Concern Status LastModified by Organization Details LastModified Time None Recorded Advance Directives Directive Y: Payers Encounter Date Sequence Insurance Name Policy Number Policy Mccrary Covered Member ID Mccrary Member ID Guarantor Name 02/09/2015 1 [facility] [id number] Hawk Olivo [id number] Hawk Olivo 06/02/2015 1 [facility] (O) [id number] Hawk Olivo [id number] Hawk Olivo 12/26/2016 1 [facility]UE [id number] Hawk Odell Olivo [id number] Hawk Sierraerta 04/28/2017 1 [facility] [employer] [facility] BLUE (PPO) [id number] Hawk C Olivo [id number] Hawk Olivo 08/01/2017 1 [facility]: [facility] [employer] [facility] BLUE (PPO) [id number] Hawk C Olivo [id number] Hawk Olivo Notes Date Note Type Note [...] degree of symptoms. Boom Gómez MD [address], [address], [facility] 12/31/2016 22:03:01 04/28/2017 text/html HeadacheReported bypatient.Notes:Notes that [...] notes worsening symptoms. Dougie Lazaro MD [address] [address], [place], [address], [facility] 04/28/2017 10:49:05 08/01/2017 text/html HeadacheReported bypatient.Location:occ ipital Quality:similar to previous headaches;piercing/sta bbing (lancinating) Onset/Timing:better Associated Symptoms:vomiting;phot ophobia;tearing/watery eyesNotes:Imitrex and TCA seem to be helping.Musculoskeleta l PainReported bypatient.Location:pennie ateral arm; left wrist Quality:aching Severity:worsening Duration:present for 6-12 months Timing:intermittentNot es:Has known vitamin D deficiency but is not taking supplement. Boom Gómez MD [address] [address], [place], [id number], [facility] 08/01/2017 12:19:09 OBGyn Episode No OBEpisode recorded.
== END 2025-03-18 11:12 | disposition home or self-care (01) ==
LOC: HO.MAMMO 11:11
PROVIDERS: PCP Internal Medicine; Visit Provider Internal Medicine
DX: Z13.820 Encounter for screening for osteoporosis (principal); Z78.0 Asymptomatic menopausal state
CPT/HCPCS: 77080

== ENCOUNTER → 2025-03-18 11:30 | Outpatient (BNV) | payer BC, SELFPAY | PROVIDERS: PCP Internal Medicine; Visit Provider Radiology Diagnostic Radiology | DX: E28.39 Other primary ovarian failure (principal) | CPT/HCPCS: 77080 ==

== ENCOUNTER 2025-08-08 10:04 | Outpatient (REF) | payer BC, SELFPAY ==
[2025-08-08 10:15] LABS: MANUAL DIFF FLAG NO
[2025-08-08 10:28] LABS: Hematocrit 40.8 % (37.0-47.0); Hemoglobin 13.0 g/dl (12.0-16.0); Imm Gran Abs Auto 0.07 X10*3/uL (0.00-0.03); Imm Gran Pct Auto 1.2 % (0.0-0.4); Lymphocytes Absolute Auto 1.3 X10*3/uL (1.2-4.9); Mean Corpuscular HGB Conc 31.9 g/dl (31.0-35.0); Mean Corpuscular Hemoglobin 30.4 pg (27.0-33.0); Mean Corpuscular Volume 95.3 fL (80.0-98.0); NRBC Abs Auto 0.000 X10*3/uL (0.0-0.012); NRBC Pct Auto 0.0 /100WBC (0.0-0.2); Platelet Count 284 X10*3/uL (160-400); Red Blood Count 4.28 X10*6/uL (4.20-5.50); White Blood Count 5.9 X10*3/uL (4.8-10.8)
[2025-08-08 11:00] LABS: Alanine Aminotransferase 42 U/L (0-31); Anion Gap 12 (12-20); Aspartate Amino Transferase 41 U/L (5-31); Blood Urea Nitrogen 16 mg/dL (9-16); Calcium 9.4 mg/dL (8.4-10.2); Carbon Dioxide 27 mmol/L (22-29); Chloride 109 mmol/L (96-108); Cholesterol 242 mg/dL (<200); Estimated Glomerular Filt Rate > 60; HDL Cholesterol 71 mg/dL (>40); Potassium 4.2 mmol/L (3.3-5.1); Sodium 144 mmol/L (135-145); Triglycerides 76 mg/dL (<150)
== END 2025-08-08 10:05 | disposition home or self-care (01) ==
LOC: HO.LAB 10:04
PROVIDERS: PCP Internal Medicine; Visit Provider Internal Medicine
DX: F41.8 Other specified anxiety disorders (principal); I10 Essential (primary) hypertension; E78.00 Pure hypercholesterolemia, unspecified; E66.9 Obesity, unspecified; Z78.0 Asymptomatic menopausal state
CPT/HCPCS: 36415; 80048; 80061; 82306; 84450; 84460; 85025

== ENCOUNTER 2025-08-09 08:10 | Outpatient (AMB) | payer BC, SELFPAY ==
--- NOTE | 2025-08-09 08:16 | A.OFFPC_ITS ---
Vital Signs 08/09/25 08:28 Height 5 ft 3 in Weight 185 lb BMI 32.8 BP 136/80 Blood Pressure Location Lt brachial Position Sitting Respiration 16 Pulse 68 Pulse Source Pulse Oximeter Pulse Oximetry (%) 99 Oxygen Delivery Method Room Air Intake Visit Reasons: Annual pe Intake Note: Pt is here today for her PE: Last mammogram , papsmear 05/29/21, cologuard 07/12/24 Allergies adhesive tape (ADHESIVE TAPE) Allergy (Unknown, Verified 08/09/25 08:50) RASH neomycin Allergy (Unknown, Verified 08/09/25 08:50) rash thimerosal Allergy (Unknown, Verified 08/09/25 08:50) itching Iodinated Contrast Media (Contrast Dye) Adverse Reaction (Verified 08/09/25 08:50) Itching Medication List - Last Reconciled 08/09/25 by Macie Valdovinos MD fluoxetine 20 mg PO DAILY fluoxetine 10 mg PO DAILY lisinopril 5 mg PO DAILY Tobacco use date assessed: 08/09/25 Dental Screening Dental Screen Date: 08/09/25 Did you have a dental visit in the last 12 months?: Yes Did you have a dental problem in the last 6 months where you did not have access to dental care?: No Was dental information given to patient?: Patient has dentist [facility] Medical History (Updated 08/09/25 @ 08:53 by Macie Valdovinos MD) Osteopenia of left femoral neck History of rib fracture Hyperlipidemia Essential hypertension Mixed anxiety and depressive disorder Annual visit for general adult medical examination with abnormal findings Vitamin D deficiency Increased risk of breast cancer Obesity History of anemia Depression COPD (chronic obstructive pulmonary disease) BERT (obstructive sleep apnea) Surgical History History of hand surgery Hx of section History of endometrial ablation No pertinent past surgical history Family History (Updated 08/09/25 @ 08:53 by Macie Valdovinos MD) Father Lung cancer Mother Lung cancer Squamous cell skin cancer, face Sister Melanoma Breast cancer, Onset Age: 52 Maternal Aunt Breast cancer Brain cancer Paternal Grandfather Lung cancer Breast cancer Maternal Uncle Lung cancer Maternal Aunt Breast cancer Maternal Uncle Lung cancer Paternal Uncle Breast cancer Lung cancer Paternal Grandmother Stomach cancer Paternal Aunt Lymphoma Brother Squamous cell cancer of scalp and skin of neck Social History Household Members: Spouse and Children Housing: House Are you a primary career coordinator to a significant other at home: No Do you presently have visiting nurse or other home services: No Alcohol intake: current Patient Tobacco Use Status: Never used Tobacco e-Cigarette/Vaping Use: Never Used Second Hand Smoke Exposure: No service: No Current occupational status: unemployed Cognitive needs: No Hearing needs: No Vision needs: Yes Female Reproductive History Menstrual Age of Menarche: 9 Questionnaire PHQ-9 Over the last 2 weeks, how often have you been bothered by any of the following problems? 27046 - PHQ-9 Billing: Patient declined-do not bill Source: Developed by Drs. Hayden Cummings, Michelle Charlton, Alban Danielson and colleagues, with an educational sal from [employer]. Thrive Questionnaire Date Thrive assessed: 08/09/25 I am a: Patient What is your living situation today?: I have a steady place to live Within the past 12 months, did the food you bought not last and you didn't have the money to get more?: I choose not to answer this question Within the past 12 months, did you worry whether your food would run out before you got money to buy more?: I choose not to answer this question Do you have trouble paying for medicines?: I choose not to answer this question Do you have trouble getting transportation to medical appointments?: No Do you have trouble paying your heating and electricity bill?: I choose not to answer this question Do you have trouble taking care of your child, family member or friend?: No Do you have trouble with day-to-day activities such as bathing, preparing meals, shopping, managing finances, etc.?: No Are you currently unemployed and looking for a job?: Yes Are you interested in more education?: No Please select the resources that you would like help with: Housing/Residential Currently or been in a relationship where the following occur: I choose not to answer THRIVE Score: 0 AUDIT C Alcohol Use Questionnaire (AUDIT-C) 1. How often do you have a drink containing alcohol?: Monthly or less 2. How many drinks containing alcohol do you have on a typical day when you are drinking?: 1 or 2 3. How often do you have six or more drinks on one occasion?: Never Total Score: 1 GIN-7 AMB Questionnaire GIN-7 Date GIN - 7 assessed: 08/09/25 Feeling nervous, anxious, or on edge: 1 = Several days Not being able to stop or control worryin = Several days Worrying too much about different things: 1 = Several days Trouble relaxin = Several days Being so restless that it is hard to sit still: 0 = Not at all Becoming easily annoyed or irritable: 0 = Not at all Feeling afraid as if something awful might happen: 0 = Not at all Total GIN-7 score (0-4 normal; 5-9 mild; 10-14 moderate; 15-21 severe): 4 Source: Developed by Drs. Hayden Cummings, Michelle Charlton, Alban Danielson and colleagues, with an educational sal from [employer]. GIN-7 Assessment Billing GIN-7 Assessment Tool: GIN-7 Assessment 55003 Review of Systems Eyes Details: My eye doctor ,no cataracts or glaucoma or macular degeneration Reports requires corrective lenses ENT Details: Dental cleaning every 6 months Physical exam (Primary Care) Vital Signs: Last Vital Signs Pulse 68 08/09/25 08:28 Resp 16 08/09/25 08:28 BP 136/80 08/09/25 08:28 Pulse Ox 99 08/09/25 08:28 Oxygen Delivery Method Room Air 08/09/25 08:28 BMI result Body Mass Index 32.8 Tobacco/Smoking Status: Tobacco use Status Tobacco use date assessed 08/09/25 08/09/25 08:32 Patient Tobacco Use Status Never used Tobacco 08/09/25 08:17 e-Cigarette/Vaping Use Never Used 08/09/25 08:17 Thrive Assessment: Date of Thrive Assessment Date Thrive assessed 08/09/25 08/09/25 08:17 Currently or been in a relationship where the following occur: I choose not to answer Office Procedures Flu Questionnaire Does the patient have a severe egg allergy?: No Does the patient have severe life threatening allergies?: No Does the patient have a fever or illness today?: No Has the patient ever had Guillain-[place] Syndrome?: No Has the patient ever had any past reaction to a flu shot?: No Immunizations Fluarix [id number] (PF) 45 mcg (15 mcg x 3)/0.5 mL IM syringe Performing Provider: Macie Valdovinos MD Performing Location[facility] Administered by: Nena Miller CMA on 08/09/25 08:35 Dose Route Admin Location Dispensed Lot Number Expiration Date NDC Paste Up Copy 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 0.5 mL IM Left Deltoid 0.5 mL [id number] 04/25/26 [id number] [employer] VIS Given Date VIS Provided VIS Publication Date 08/09/25 Single Vaccine 24 Eligibility Eligibility Date Funding Source Not [facility] Eligible 08/09/25 Private Coding Level of Care Code Est Pt Prev Care 40-64y(08668) Diagnoses Encounter for screening for malignant neoplasm of cervix Z12.4 Essential hypertension I10 Pure hypercholesterolemia E78.00 Hyperlipidemia type: pure hypercholesterolemia Mixed anxiety and depressive disorder F41.8 Osteopenia of left femoral neck M85.852 Additional Codes GIN-7 Assessment Billing - GIN-7 Assessment Tool: GIN-7 Assessment 70263 ([id number]) Assessment & Plan Assessment & Plan (1) Encounter for screening for malignant neoplasm of cervix: Code(s): Z12.4 - Encounter for screening for malignant neoplasm of cervix (2) Essential hypertension: Code(s): I10 - Essential (primary) hypertension Category: Medical (3) Hyperlipidemia: Code(s): E78.5 - Hyperlipidemia, unspecified Category: Medical Qualifiers: Hyperlipidemia type: pure hypercholesterolemia Qualified Code(s): E78.00 - Pure hypercholesterolemia, unspecified (4) Mixed anxiety and depressive disorder: Code(s): F41.8 - Other specified anxiety disorders Category: Medical (5) Osteopenia of left femoral neck: Code(s): M85.852 - Other specified disorders of bone density and structure, left thigh Category: Medical Orders: Orders Influenza [id number] Immunization Today Z23 - Encounter for immunization Comprehensive [place]. Panel Fast 01/28/26 E66.9 - Obesity, unspecified, I10 - Essential (primary) hypertension, M85.852 - Other specified disorders of bone density and structure, left thigh Lipid Panel 01/28/26 E78.00 - Pure hypercholesterolemia, unspecified, I10 - Essential (primary) hypertension Referrals [employer] SAL[employer] MANAGER Referral Z12.4 - Encounter for screening for malignant neoplasm of cervix
[2025-08-09 08:28] VITALS: BP 136/80; PULSE 68; RESP 16; O2SAT 99; BMI 32.8
== END 2025-08-09 09:18 | disposition home or self-care (01) ==
LOC: HO.HMCC 08:11
PROVIDERS: PCP Internal Medicine; Visit Provider Internal Medicine
DX: Z23 Encounter for immunization (principal)

== ENCOUNTER → 2025-08-09 08:10 | Outpatient (BNVA) | payer BC, SELFPAY | PROVIDERS: PCP Internal Medicine; Visit Provider Internal Medicine | DX: Z00.01 Encounter for general adult medical examination with abnormal findings (principal); J30.2 Other seasonal allergic rhinitis; I10 Essential (primary) hypertension; E78.00 Pure hypercholesterolemia, unspecified; F41.8 Other specified anxiety disorders; M85.852 Other specified disorders of bone density and structure, left thigh; E66.9 Obesity, unspecified; Z23 Encounter for immunization; Z68.32 Body mass index [BMI] 32.0-32.9, adult | CPT/HCPCS: 90471; 90656; 96127 ==